=== PATIENT | female | born 1950 | race Caucasian/White ===

== ENCOUNTER 2018-11-22 07:17 | Inpatient (IN) ==
[2018-11-22 07:45] LABS: Basophils # 0.1 10*3/uL (0.0-0.2); Basophils % 0.8 % (0.0-0.8); Eosinophils # 0.2 10*3/uL (0.0-0.87); Eosinophils % 2.2 % (0.00-10.9); Hematocrit 43.8 VOL% (35.7-47.0); Hemoglobin 14.3 GM/DL (12.0-16.0); Immature Granulocytes % 0.2 %; Immature Granulocytes Absolute 0.02 #; Lymphocytes # 1.1 10*3/uL (1.4-4.0); Lymphocytes % 13.8 % (21.3-54.2); Mean Corpuscular HGB Conc 32.6 GM/DL (32-36); Mean Corpuscular Volume 88.8 FL (87-102); Mean Platelet Volume 9.3 FL (9.6-12.0); Monocytes % 5.4 % (1.7-12.7); Neutrophils % 77.6 % (38.7-73.9); Platelet Count 223 T/CUMM (130-400); Red Blood Count 4.93 MC/CUMM (3.8-5.5); Red Cell Distribution Width 13.3 % (9.3-17.3); White Blood Count 8.3 T/CUMM (4-12)
[2018-11-22 07:55] LABS: INR 0.9; PT Patient Result 9.5 SECS; Partial Thromboplastin Time 25.1 SECS (0-40)
[2018-11-22 08:01] LABS: Alanine Aminotransferase 21 U/L (13-56); Albumin 4.2 G/DL (3.4-5.0); Alkaline Phosphatase 72 U/L (45-117); Aspartate Amino Transferase 16 U/L (0-37); Bilirubin,Total < 0.39 MG/DL (0.2-1.0); Blood Urea Nitrogen 18 MG/DL (7-18); Calcium 9.2 MG/DL (8.5-10.1); Glucose 139 MG/DL (74-106); Osmolality,Calculated 284.3 MOS/KG (273-304); Total Protein 7.3 G/DL (6.4-8.3)
[2018-11-22 08:21] LABS: Apearance,Urine CLEAR (Clear); Bilirubin,Urine Negative (Negative); Blood, Urine Small mg/dL (Negative); Glucose,Urine (UA) Negative (Negative); Ketones,Urine Negative (Negative); Mucus,Urine Occasional /LPF (Occasional); Nitrite,Urine Negative (Negative); Protein,Urine Negative; RBC,Urine 4 /HPF (0-4); Squamous Epithelial Cell,Urine Occasional /HPF (0-10); Urine Color Straw (Yellow); Urine Specific Gravity 1.012 (1.001-1.035); Urine Urobilinogen < 2.0 EU/DL (0.2-1.0); WBC,Urine 1 /HPF (0-6)
[2018-11-22 08:27] LABS: Barbiturates Screen,Urine Negative (Negative); Benzodiazepines Screen,Urine Negative (Negative); Cannabinoid Screen,Urine Negative (Negative); Opiate Screen,Urine Negative (Negative); Phencyclidine Screen,Urine Negative (Negative)
[2018-11-22] MEDS ORDERED: CLOPIDOGREL 75 MG TABLET PO STA (09:45)
[2018-11-22 10:11] LABS: Risk Ratio 2.89; VLDL CHOLESTEROL 10.4 MG/DL
[2018-11-22] MEDS ORDERED: ASPIRIN 325 MG TABLET ONE (10:45)
[2018-11-22] MEDS: ASPIRIN EC 81 MG TABLET PO SCH (10:45)
[2018-11-22] MEDS ORDERED: ASPIRIN CHEW 81 MG TABLET PO ONE (10:46)
[2018-11-22] MEDS ORDERED: hydrALAZINE 20 MG/1 ML VIAL IV PRN (14:36)
[2018-11-22] MEDS ORDERED: PROMETHAZINE 25 MG/1 ML VIAL IM PRN (14:36)
[2018-11-22] MEDS ORDERED: MAGNESIUM SULF RIDER 2 GM in PREMIX 1 EACH IV PRN (14:36)
[2018-11-22] MEDS ORDERED: MORPHINE 4 MG/1 ML VIAL IV PRN (14:36)
[2018-11-22] MEDS ORDERED: ONDANSETRON 4 MG/2 ML VIAL IV PRN (14:36)
[2018-11-22] MEDS ORDERED: MAGNESIUM SULF RIDER 4 GM in PREMIX 1 EACH IV PRN (14:36)
[2018-11-22] MEDS ORDERED: diphenhydrAMINE CAP 25 MG CAPSULE PO PRN (14:36)
[2018-11-22] MEDS: CARVEDILOL 6.25 MG TABLET PO SCH ×2 (14:55→21:50)
[2018-11-22] MEDS: ACETAMINOPHEN 325 MG TABLET PO PRN (16:42)
[2018-11-22] MEDS: ATORVASTATIN 40 MG TABLET PO SCH (21:49)
[2018-11-22] MEDS: DOCUSATE SODIUM 100 MG CAPSULE PO SCH (21:51)
[2018-11-23] MEDS: HEPARIN DRIP 25,000 UNITS/500 ML PREMIX IV SCH (00:02)
[2018-11-23 06:34] LABS: Basophils # 0.1 10*3/uL (0.0-0.2); Basophils % 0.7 % (0.0-0.8); Eosinophils # 0.2 10*3/uL (0.0-0.87); Eosinophils % 2.6 % (0.00-10.9); Hematocrit 43.4 VOL% (35.7-47.0); Hemoglobin 13.7 GM/DL (12.0-16.0); Immature Granulocytes % 0.5 %; Immature Granulocytes Absolute 0.04 #; Lymphocytes # 1.7 10*3/uL (1.4-4.0); Lymphocytes % 19.7 % (21.3-54.2); Mean Corpuscular HGB Conc 31.6 GM/DL (32-36); Mean Corpuscular Volume 90.6 FL (87-102); Mean Platelet Volume 8.7 FL (9.6-12.0); Monocytes % 6.5 % (1.7-12.7); Platelet Count 210 T/CUMM (130-400); Red Blood Count 4.79 MC/CUMM (3.8-5.5); Red Cell Distribution Width 13.2 % (9.3-17.3); White Blood Count 8.4 T/CUMM (4-12)
[2018-11-23 07:20] LABS: Bilirubin,Total 0.8 MG/DL (0.2-1.0); Calcium 9.4 MG/DL (8.5-10.1); Osmolality,Calculated 281.4 MOS/KG (273-304); Total Protein 7.2 G/DL (6.4-8.3)
[2018-11-23] MEDS ORDERED: SODIUM CHLORIDE 0.9% 1,000 ML IV SCH (08:00)
[2018-11-23] MEDS ORDERED: CLOPIDOGREL 75 MG TABLET PO SCH (09:00)
[2018-11-23] MEDS: CARVEDILOL 6.25 MG TABLET PO SCH ×4 (10:55→21:00)
[2018-11-23] MEDS: DOCUSATE SODIUM 100 MG CAPSULE PO SCH ×2 (10:55→21:00)
[2018-11-23] MEDS: PANTOPRAZOLE 40 MG TABLET PO SCH (10:55)
[2018-11-23] MEDS: ASPIRIN EC 81 MG TABLET PO SCH (10:55)
[2018-11-23] MEDS ORDERED: DEXAMETHASONE 4 MG/1 ML VIAL ONE (10:59)
[2018-11-23] MEDS ORDERED: PROPOFOL 200 MG/20 ML VIAL IV ONE (10:59)
[2018-11-23] MEDS ORDERED: ONDANSETRON 4 MG/2 ML VIAL ONE (11:00)
[2018-11-23] MEDS ORDERED: ETOMIDATE 40 MG/20 ML VIAL IV ONE (11:00)
[2018-11-23] MEDS: ATORVASTATIN 40 MG TABLET PO SCH (21:00)
[2018-11-24] MEDS: HEPARIN DRIP 25,000 UNITS/500 ML PREMIX IV SCH (01:40)
[2018-11-24 04:49] LABS: Basophils % 0.4 % (0.0-0.8); Eosinophils # 0.1 10*3/uL (0.0-0.87); Eosinophils % 0.6 % (0.00-10.9); Hematocrit 42.4 VOL% (35.7-47.0); Hemoglobin 13.2 GM/DL (12.0-16.0); Immature Granulocytes % 0.6 %; Immature Granulocytes Absolute 0.07 #; Lymphocytes # 1.6 10*3/uL (1.4-4.0); Lymphocytes % 14.7 % (21.3-54.2); Mean Corpuscular HGB Conc 31.1 GM/DL (32-36); Mean Platelet Volume 9.2 FL (9.6-12.0); Monocytes % 7.8 % (1.7-12.7); Neutrophils % 75.9 % (38.7-73.9); Platelet Count 226 T/CUMM (130-400); Red Blood Count 4.66 MC/CUMM (3.8-5.5); Red Cell Distribution Width 13.2 % (9.3-17.3)
[2018-11-24 05:21] LABS: Albumin 3.6 G/DL (3.4-5.0); Bilirubin,Total 0.8 MG/DL (0.2-1.0); Calcium 9.3 MG/DL (8.5-10.1); Osmolality,Calculated 287.1 MOS/KG (273-304); Total Protein 6.8 G/DL (6.4-8.3)
[2018-11-24] MEDS: CARVEDILOL 6.25 MG TABLET PO SCH ×2 (08:36→20:54)
[2018-11-24] MEDS: DOCUSATE SODIUM 100 MG CAPSULE PO SCH ×2 (08:36→20:54)
[2018-11-24] MEDS: ASPIRIN EC 81 MG TABLET PO SCH (08:37)
[2018-11-24] MEDS: PANTOPRAZOLE 40 MG TABLET PO SCH (08:37)
[2018-11-24] MEDS: ESCITALOPRAM 10 MG TABLET PO SCH (08:39)
[2018-11-24] MEDS: ATORVASTATIN 40 MG TABLET PO SCH (20:54)
[2018-11-24] MEDS: ACETAMINOPHEN 325 MG TABLET PO PRN (22:28)
[2018-11-25] MEDS: HEPARIN DRIP 25,000 UNITS/500 ML PREMIX IV SCH (04:17)
[2018-11-25 04:44] LABS: Basophils # 0.1 10*3/uL (0.0-0.2); Eosinophils # 0.3 10*3/uL (0.0-0.87); Eosinophils % 3.2 % (0.00-10.9); Hematocrit 41.7 VOL% (35.7-47.0); Immature Granulocytes % 0.4 %; Immature Granulocytes Absolute 0.03 #; Lymphocytes # 2.2 10*3/uL (1.4-4.0); Lymphocytes % 26.8 % (21.3-54.2); Mean Corpuscular HGB Conc 31.2 GM/DL (32-36); Mean Corpuscular Volume 91.6 FL (87-102); Mean Platelet Volume 9.3 FL (9.6-12.0); Monocytes % 8.8 % (1.7-12.7); Neutrophils % 59.8 % (38.7-73.9); Platelet Count 206 T/CUMM (130-400); Red Blood Count 4.55 MC/CUMM (3.8-5.5); Red Cell Distribution Width 13.4 % (9.3-17.3); White Blood Count 8.2 T/CUMM (4-12)
[2018-11-25 05:20] LABS: Alanine Aminotransferase 20 U/L (13-56); Albumin 3.4 G/DL (3.4-5.0); Alkaline Phosphatase 74 U/L (45-117); Aspartate Amino Transferase 16 U/L (0-37); Bilirubin,Total < 0.39 MG/DL (0.2-1.0); Blood Urea Nitrogen 33 MG/DL (7-18); Calcium 8.9 MG/DL (8.5-10.1); Glucose 119 MG/DL (74-106); Total Protein 6.4 G/DL (6.4-8.3)
[2018-11-25] MEDS: DOCUSATE SODIUM 100 MG CAPSULE PO SCH ×2 (12:17→20:58)
[2018-11-25] MEDS: CARVEDILOL 6.25 MG TABLET PO SCH ×2 (12:18→20:58)
[2018-11-25] MEDS ORDERED: LIDOCAINE 1%/EPI INJ 20 ML VIAL ONE (12:33)
[2018-11-25] MEDS ORDERED: TISSUE ADHESIVE 1 EACH APPLICATOR TOP ONE (12:34)
[2018-11-25] MEDS ORDERED: SODIUM CHLORIDE 0.9% 1,000 ML IV SCH (13:00)
[2018-11-25] MEDS: APIXABAN 5 MG TABLET PO SCH ×2 (15:26→20:58)
[2018-11-25] MEDS: ESCITALOPRAM 10 MG TABLET PO SCH (16:41)
[2018-11-25] MEDS: ASPIRIN EC 81 MG TABLET PO SCH (16:42)
[2018-11-25] MEDS: PANTOPRAZOLE 40 MG TABLET PO SCH (16:42)
[2018-11-25] MEDS: ATORVASTATIN 40 MG TABLET PO SCH (20:59)
[2018-11-25] MEDS ORDERED: DOXAZOSIN 1 MG TABLET PO SCH (21:00)
[2018-11-26 05:00] LABS: Basophils # 0.1 10*3/uL (0.0-0.2); Basophils % 0.8 % (0.0-0.8); Eosinophils # 0.3 10*3/uL (0.0-0.87); Eosinophils % 3.1 % (0.00-10.9); Hematocrit 44.4 VOL% (35.7-47.0); Hemoglobin 13.8 GM/DL (12.0-16.0); Immature Granulocytes % 0.3 %; Immature Granulocytes Absolute 0.03 #; Lymphocytes # 1.7 10*3/uL (1.4-4.0); Lymphocytes % 19.5 % (21.3-54.2); Mean Corpuscular HGB Conc 31.1 GM/DL (32-36); Mean Corpuscular Volume 91.4 FL (87-102); Monocytes % 8.1 % (1.7-12.7); Neutrophils % 68.2 % (38.7-73.9); Platelet Count 198 T/CUMM (130-400); Red Blood Count 4.86 MC/CUMM (3.8-5.5); Red Cell Distribution Width 13.2 % (9.3-17.3); White Blood Count 8.8 T/CUMM (4-12)
[2018-11-26 05:37] LABS: Albumin 3.6 G/DL (3.4-5.0); Bilirubin,Total 0.8 MG/DL (0.2-1.0); Calcium 9.3 MG/DL (8.5-10.1); Total Protein 6.9 G/DL (6.4-8.3)
[2018-11-26] MEDS: ESCITALOPRAM 10 MG TABLET PO SCH (08:40)
[2018-11-26] MEDS: APIXABAN 5 MG TABLET PO SCH ×2 (08:42→20:18)
[2018-11-26] MEDS: DOCUSATE SODIUM 100 MG CAPSULE PO SCH ×2 (08:42→20:18)
[2018-11-26] MEDS: PANTOPRAZOLE 40 MG TABLET PO SCH (08:42)
[2018-11-26] MEDS: ASPIRIN EC 81 MG TABLET PO SCH (08:42)
[2018-11-26] MEDS: CARVEDILOL 6.25 MG TABLET PO SCH ×2 (08:42→20:18)
[2018-11-26] MEDS: ATORVASTATIN 40 MG TABLET PO SCH (20:18)
[2018-11-27] MEDS: ESCITALOPRAM 10 MG TABLET PO SCH (09:08)
[2018-11-27] MEDS: CARVEDILOL 6.25 MG TABLET PO SCH ×2 (09:09→20:43)
[2018-11-27] MEDS: DOCUSATE SODIUM 100 MG CAPSULE PO SCH ×2 (09:09→20:43)
[2018-11-27] MEDS: APIXABAN 5 MG TABLET PO SCH ×2 (09:09→20:43)
[2018-11-27] MEDS: PANTOPRAZOLE 40 MG TABLET PO SCH (09:09)
[2018-11-27] MEDS: ASPIRIN EC 81 MG TABLET PO SCH (09:09)
[2018-11-27] MEDS: ATORVASTATIN 40 MG TABLET PO SCH (20:43)
[2018-11-28 08:24] VITALS: BP 138/74
[2018-11-28] MEDS: CARVEDILOL 6.25 MG TABLET PO SCH (08:41)
[2018-11-28] MEDS: APIXABAN 5 MG TABLET PO SCH (08:41)
[2018-11-28] MEDS: ESCITALOPRAM 10 MG TABLET PO SCH (08:41)
[2018-11-28] MEDS: PANTOPRAZOLE 40 MG TABLET PO SCH (08:42)
[2018-11-28] MEDS: ASPIRIN EC 81 MG TABLET PO SCH (08:42)
[2018-11-28] MEDS: DOCUSATE SODIUM 100 MG CAPSULE PO SCH (08:42)
== END 2018-11-28 14:25 | disposition swing bed (61) | DRG 41 ==
LOC: EDUNIT# → EDBD → N.ED 07:17 → N.EDINP 07:17 → N.4E 10:54 → N.3E 11-26 14:02
PROVIDERS: ADMIT Hospitalist; ATTEND Hospitalist

== ENCOUNTER 2020-05-04 05:29 | Inpatient (IN) ==
[2020-05-04] MEDS ORDERED: SODIUM CHLORIDE 0.9% 1,000 ML IV STA ×2 (06:05→06:26)
[2020-05-04] MEDS ORDERED: HYDROmorphone 2 MG/1 ML VIAL IV STA (06:17)
[2020-05-04] MEDS ORDERED: ONDANSETRON 4 MG/2 ML VIAL IV STA ×3 (06:17→10:13)
[2020-05-04 06:23] LABS: Alanine Aminotransferase 208 U/L (13-56); Albumin 3.8 G/DL (3.4-5.0); Alkaline Phosphatase 159 U/L (45-117); Aspartate Amino Transferase 150 U/L (0-37); Blood Urea Nitrogen 29 MG/DL (7-18); Calcium 9.2 MG/DL (8.5-10.1); Carbon Dioxide 13 MMOL/L (21-32); Estimated Glom Filtration Rate 21 ML/MIN; Glucose 297 MG/DL (74-106); Osmolality,Calculated 291.7 MOS/KG (273-304); Sodium 138 MMOL/L (136-145); Total Protein 8.4 G/DL (6.4-8.3)
[2020-05-04] MEDS ORDERED: cefTRIAXone 1,000 MG in SODIUM CHLORIDE 0.9% 100 ML IV STA (06:24)
[2020-05-04] MEDS ORDERED: PIPERACILLIN/TAZOBACTAM 3,375 MG in SODIUM CHLORIDE 0.9% 100 ML IV STA (06:26)
[2020-05-04 06:35] LABS: Bacteria,Urine Occasional /HPF (Few); Bilirubin,Urine Negative (Negative); Blood, Urine Moderate mg/dL (Negative); Glucose,Urine (UA) Negative (Negative); Ketones,Urine Negative (Negative); Nitrite,Urine Negative (Negative); Protein,Urine 30 MG/DL; RBC,Urine 5 /HPF (0-4); Squamous Epithelial Cell,Urine Occasional /HPF (0-10); Urine Appearance Slightly Hazy (Clear); Urine Color Amber (Yellow); Urine Specific Gravity 1.013 (1.001-1.035); Urine Urobilinogen < 2.0 EU/DL (0.2-1.0); WBC,Urine 32 /HPF (0-6)
[2020-05-04 06:41] LABS: Basophils # 0.1 10*3/uL (0.0-0.2); Basophils % 0.3 % (0.0-0.8); Eosinophils % 0.1 % (0.00-10.9); Hematocrit 56.9 VOL% (35.7-47.0); Hemoglobin 17.9 GM/DL (12.0-16.0); Immature Granulocytes % 0.6 %; Immature Granulocytes Absolute 0.16 #; Lymphocytes # 3.2 10*3/uL (1.4-4.0); Lymphocytes % 11.3 % (21.3-54.2); Mean Corpuscular HGB Conc 31.5 GM/DL (32-36); Mean Corpuscular Volume 93.1 FL (87-102); Mean Platelet Volume 9.4 FL (9.6-12.0); Neutrophils % 83.7 % (38.7-73.9); Platelet Count 271 T/CUMM (130-400); Red Blood Count 6.11 MC/CUMM (3.8-5.5); Red Cell Distribution Width 13.9 % (9.3-17.3); White Blood Count 27.8 T/CUMM (4-12)
[2020-05-04 06:49] LABS: Band Neutrophils 6 % (0-10); Lymphocytes 10 % (20-55); Platelet Estimate Adequate; Segmented Neutrophils 81 % (50-85); Total Cells Counted 100
[2020-05-04 06:52] LABS: Troponin I 0.089 NG/ML (0.00-0.045)
[2020-05-04] MEDS ORDERED: ALBUTEROL 2.5 MG/3 ML NEB RESP TX PRN (08:11)
[2020-05-04] MEDS ORDERED: HYDROmorphone 2 MG/1 ML VIAL IV PRN ×2 (08:19→09:22)
[2020-05-04 08:29] LABS: INR 1.1; PT Patient Result 12.2 SECS (9.8-11.9)
[2020-05-04] MEDS ORDERED: LACTATED RINGERS 1,000 ML IV ONE ×3 (08:29→16:11)
[2020-05-04] MEDS ORDERED: ENOXAPARIN 30 MG/0.3 ML SYRINGE SUBCUT SCH (08:30)
[2020-05-04] MEDS ORDERED: LACTATED RINGERS 1,000 ML IV SCH ×2 (08:30→09:30)
[2020-05-04] MEDS ORDERED: GLUCAGON 1 MG VIAL IM PRN (08:36)
[2020-05-04 09:05] LABS: Risk Ratio 2.4; VLDL CHOLESTEROL 23.8 MG/DL
[2020-05-04] MEDS: ONDANSETRON 4 MG/2 ML VIAL IV PRN (09:37)
[2020-05-04] MEDS: HYDROmorphone 2 MG/1 ML VIAL IV PRN ×4 (09:37→18:39)
[2020-05-04] MEDS ORDERED: PROMETHAZINE 25 MG/1 ML VIAL IM PRN (10:43)
[2020-05-04] MEDS ORDERED: VANCOMYCIN INJ 1,500 MG in SODIUM CHLORIDE 0.9% 500 ML IV PRN (11:28)
[2020-05-04] MEDS: LACTATED RINGERS 1,000 ML IV SCH ×2 (12:21→18:11)
[2020-05-04] MEDS ORDERED: VANCOMYCIN INJ 1,500 MG in SODIUM CHLORIDE 0.9% 500 ML IV ONE (12:30)
[2020-05-04] MEDS: PIPERACILLIN/TAZOBACTAM 3,375 MG in SODIUM CHLORIDE 0.9% 100 ML IV SCH (15:00)
[2020-05-04] MEDS ORDERED: HEPARIN DRIP 25,000 UNITS/500 ML PREMIX IV ONE (16:23)
[2020-05-04 17:07] LABS: ABG Base Excess -11.3 MMOL/L (-2.5-2.5); ABG HCO3 15.7 MMOL/L (20-26); ABG Oxygen Saturation 94.5 % (95-100); ABG PH 7.264 (7.35-7.45); ABG PO2 86.7 MM HG (80-95); ABG TCO2 13.1 MMOL/L (23-27)
[2020-05-04] MEDS ORDERED: LACTATED RINGERS 500 ML IV ONE (18:00)
[2020-05-04 18:15] LABS: Calcium 6.3 MG/DL (8.5-10.1); Osmolality,Calculated 294.1 MOS/KG (273-304); Potassium 4.4 MMOL/L (3.5-5.1)
[2020-05-04] MEDS ORDERED: SODIUM BICARBONATE 50 MEQ/50 ML VIAL IV ONE ×2 (18:23→18:24)
[2020-05-04] MEDS: SODIUM BICARB INJ 100 MEQ in DEXTROSE 5% 1,000 ML IV SCH (20:00)
[2020-05-04] MEDS: NOREPINEPHRINE 8 MG in SODIUM CHLORIDE 0.9% 242 ML IV PRN (20:01)
[2020-05-04] MEDS: HYDROCORTISONE 100 MG VIAL IV SCH (20:22)
[2020-05-04 20:45] LABS: Hematocrit 48.4 VOL% (35.7-47.0); Hemoglobin 14.9 GM/DL (12.0-16.0)
[2020-05-04] MEDS ORDERED: ALBUMIN 5% 12.5 GM in PREMIX 1 EACH IV ONE (21:16)
[2020-05-04] MEDS ORDERED: ROCURONIUM 50 MG/5 ML VIAL IV ONE (21:25)
[2020-05-04] MEDS ORDERED: fentaNYL 100 MCG/2 ML VIAL ONE (21:25)
[2020-05-04] MEDS ORDERED: ETOMIDATE 40 MG/20 ML VIAL IV ONE (21:25)
[2020-05-04] MEDS ORDERED: LIDOCAINE 2% 5 ML VIAL ONE (21:25)
[2020-05-04] MEDS ORDERED: MIDAZOLAM 2 MG/2 ML VIAL ONE (21:26)
[2020-05-04] MEDS ORDERED: ALBUMIN 5% 12.5 GM/250 ML VIAL IV ONE (22:34)
[2020-05-04] MEDS ORDERED: PHENYLEPHRINE 1 MG/10 ML SYRINGE IV ONE (22:40)
[2020-05-04] MEDS ORDERED: SUCCINYLCHOLINE 200 MG/10 ML VIAL ONE (22:40)
[2020-05-04] MEDS ORDERED: SEVOFLURANE 1 UNIT/15 MINUTE INH ONE (22:40)
[2020-05-05] MEDS: PIPERACILLIN/TAZOBACTAM 3,375 MG in SODIUM CHLORIDE 0.9% 100 ML IV SCH ×3 (00:07→18:02)
[2020-05-05] MEDS: HYDROCORTISONE 100 MG VIAL IV SCH ×4 (01:19→18:02)
[2020-05-05 02:54] LABS: ABG Base Excess -8.2 MMOL/L (-2.5-2.5); ABG HCO3 17.9 MMOL/L (20-26); ABG Oxygen Saturation 99.2 % (95-100); ABG PCO2 39.2 MM HG (35-48); ABG PH 7.275 (7.35-7.45); ABG TCO2 16.4 MMOL/L (23-27)
[2020-05-05] MEDS ORDERED: SODIUM CHLORIDE 0.9% 500 ML IV ONE (04:20)
[2020-05-05 06:13] LABS: Albumin 2.1 G/DL (3.4-5.0); Bilirubin,Total 0.9 MG/DL (0.2-1.0); Osmolality,Calculated 295.3 MOS/KG (273-304); Total Protein 4.4 G/DL (6.4-8.3)
[2020-05-05 06:15] LABS: Calcium 5.3 MG/DL (8.5-10.1)
[2020-05-05] MEDS ORDERED: CALCIUM GLUCONATE 1,000 MG in SODIUM CHLORIDE 0.9% 100 ML IV ONE ×3 (06:30→17:46)
[2020-05-05] MEDS ORDERED: MAGNESIUM SULF RIDER 4 GM in PREMIX 1 EACH IV PRN (06:31)
[2020-05-05] MEDS ORDERED: POTASSIUM CHLORIDE RIDER 10 MEQ in PREMIX 1 EACH IV PRN (06:33)
[2020-05-05] MEDS ORDERED: LACTATED RINGERS 1,000 ML IV ONE (07:12)
[2020-05-05 08:39] LABS: Basophils % 0.3 % (0.0-0.8); Hematocrit 35.4 VOL% (35.7-47.0); Immature Granulocytes Absolute 0.12 #; Lymphocytes # 0.5 10*3/uL (1.4-4.0); Lymphocytes % 7.5 % (21.3-54.2); Mean Corpuscular HGB Conc 31.9 GM/DL (32-36); Mean Corpuscular Volume 92.7 FL (87-102); Mean Platelet Volume 10.1 FL (9.6-12.0); Monocytes % 11.3 % (1.7-12.7); Neutrophils % 78.9 % (38.7-73.9); Red Blood Count 3.82 MC/CUMM (3.8-5.5); Red Cell Distribution Width 14.3 % (9.3-17.3)
[2020-05-05 08:43] LABS: Hemoglobin 11.3 GM/DL (12.0-16.0); Platelet Count 94 T/CUMM (130-400)
[2020-05-05 09:10] LABS: Anisocytosis 1+; Band Neutrophils 50 % (0-10); Burr Cells Few; Lymphocytes 12 % (20-55); Macrocytosis 1+; Metamyelocytes 14 %; Myelocytes 2 %; Platelet Estimate Decreased; Segmented Neutrophils 9 % (50-85); Spherocytes Few; Total Cells Counted 100
[2020-05-05] MEDS: SODIUM BICARB INJ 100 MEQ in DEXTROSE 5% 1,000 ML IV SCH ×2 (09:49→17:53)
[2020-05-05] MEDS: MAGNESIUM SULF RIDER 2 GM in PREMIX 1 EACH IV PRN (09:49)
[2020-05-05 10:12] LABS: INR 1.5; PT Patient Result 16.1 SECS (9.8-11.9)
[2020-05-05 10:12] LABS: ABG HCO3 19.5 MMOL/L (20-26); ABG Oxygen Saturation 98.6 % (95-100); ABG PCO2 26.3 MM HG (35-48); ABG PH 7.421 (7.35-7.45); ABG TCO2 15.1 MMOL/L (23-27)
[2020-05-05] MEDS: fentaNYL INJ 1,250 MCG in SODIUM CHLORIDE 0.9% 225 ML IV PRN ×2 (12:04→21:08)
[2020-05-05] MEDS ORDERED: SODIUM CHLORIDE 0.9% 1,000 ML IV PRN (12:19)
[2020-05-05 17:15] LABS: Basophils % 0.5 % (0.0-0.8); Hematocrit 31.5 VOL% (35.7-47.0); Hemoglobin 10.1 GM/DL (12.0-16.0); Immature Granulocytes % 1.2 %; Immature Granulocytes Absolute 0.07 #; Lymphocytes # 0.3 10*3/uL (1.4-4.0); Lymphocytes % 5.5 % (21.3-54.2); Mean Corpuscular HGB Conc 32.1 GM/DL (32-36); Mean Corpuscular Volume 91.3 FL (87-102); Mean Platelet Volume 9.8 FL (9.6-12.0); Monocytes % 8.1 % (1.7-12.7); Neutrophils % 84.7 % (38.7-73.9); Platelet Count 73 T/CUMM (130-400); Red Blood Count 3.45 MC/CUMM (3.8-5.5); Red Cell Distribution Width 14.3 % (9.3-17.3)
[2020-05-05 17:41] LABS: Blood Urea Nitrogen 48 MG/DL (7-18); Carbon Dioxide 24 MMOL/L (21-32); Estimated Glom Filtration Rate 18 ML/MIN; Glucose 214 MG/DL (74-106); Osmolality,Calculated 299.3 MOS/KG (273-304); Potassium 3.5 MMOL/L (3.5-5.1); Sodium 141 MMOL/L (136-145)
[2020-05-05 17:44] LABS: Calcium 5.6 MG/DL (8.5-10.1)
[2020-05-05 17:54] LABS: Band Neutrophils 41 % (0-10); Lymphocytes 13 % (20-55); Metamyelocytes 10 %; Myelocytes 2 %; Segmented Neutrophils 28 % (50-85); Total Cells Counted 100
[2020-05-05 17:55] LABS: Platelet Estimate Decreased
[2020-05-05 17:57] LABS: Burr Cells Few; Polychromasia Slight; Spherocytes Few
[2020-05-05 21:55] LABS: Basophils % 0.6 % (0.0-0.8); Eosinophils % 0.2 % (0.00-10.9); Hematocrit 26.2 VOL% (35.7-47.0); Hemoglobin 8.6 GM/DL (12.0-16.0); Immature Granulocytes Absolute 0.05 #; Lymphocytes # 0.2 10*3/uL (1.4-4.0); Lymphocytes % 4.3 % (21.3-54.2); Mean Corpuscular HGB Conc 32.8 GM/DL (32-36); Mean Corpuscular Volume 90.3 FL (87-102); Mean Platelet Volume 10.1 FL (9.6-12.0); Monocytes % 8.1 % (1.7-12.7); Neutrophils % 85.8 % (38.7-73.9); Platelet Count 58 T/CUMM (130-400); Red Cell Distribution Width 14.2 % (9.3-17.3); White Blood Count 5.1 T/CUMM (4-12)
[2020-05-05 22:32] LABS: Band Neutrophils 32 % (0-10); Lymphocytes 8 % (20-55); Metamyelocytes 6 %; Myelocytes 2 %; Segmented Neutrophils 45 % (50-85); Total Cells Counted 100
[2020-05-05 22:33] LABS: Platelet Estimate Decreased
[2020-05-06] MEDS: HYDROCORTISONE 100 MG VIAL IV SCH ×4 (01:31→18:31)
[2020-05-06] MEDS: SODIUM BICARB INJ 100 MEQ in DEXTROSE 5% 1,000 ML IV SCH ×4 (02:13→14:59)
[2020-05-06 04:35] LABS: Basophils % 0.6 % (0.0-0.8); Eosinophils % 0.1 % (0.00-10.9); Hematocrit 27.3 VOL% (35.7-47.0); Hemoglobin 9.1 GM/DL (12.0-16.0); Immature Granulocytes % 0.9 %; Immature Granulocytes Absolute 0.06 #; Lymphocytes # 0.3 10*3/uL (1.4-4.0); Mean Corpuscular HGB Conc 33.3 GM/DL (32-36); Mean Corpuscular Volume 89.5 FL (87-102); Mean Platelet Volume 10.2 FL (9.6-12.0); Monocytes % 6.8 % (1.7-12.7); Neutrophils % 87.6 % (38.7-73.9); Platelet Count 57 T/CUMM (130-400); Red Blood Count 3.05 MC/CUMM (3.8-5.5); Red Cell Distribution Width 14.3 % (9.3-17.3)
[2020-05-06 04:36] LABS: ABG HCO3 27.2 MMOL/L (20-26); ABG Oxygen Saturation 97.8 % (95-100); ABG PCO2 45.4 MM HG (35-48); ABG PH 7.395 (7.35-7.45); ABG PO2 117.8 MM HG (80-95); ABG TCO2 28.6 MMOL/L (23-27)
[2020-05-06] MEDS: fentaNYL INJ 1,250 MCG in SODIUM CHLORIDE 0.9% 225 ML IV PRN ×3 (05:06→20:21)
[2020-05-06 05:07] LABS: Band Neutrophils 4 % (0-10); Lymphocytes 6 % (20-55); Microcytosis Slight; Platelet Estimate Decreased; Segmented Neutrophils 87 % (50-85); Total Cells Counted 100
[2020-05-06 05:17] LABS: Bilirubin,Total 0.7 MG/DL (0.2-1.0); Osmolality,Calculated 289.8 MOS/KG (273-304); Potassium 3.4 MMOL/L (3.5-5.1); Uric Acid 6.4 MG/DL (2.6-6.0)
[2020-05-06 05:24] LABS: Calcium 5.2 MG/DL (8.5-10.1)
[2020-05-06] MEDS ORDERED: VANCOMYCIN INJ 1,500 MG in SODIUM CHLORIDE 0.9% 500 ML IV ONE ×2 (06:30→10:00)
[2020-05-06] MEDS ORDERED: CALCIUM GLUCONATE 2,000 MG in SODIUM CHLORIDE 0.9% 100 ML IV ONE (07:00)
[2020-05-06] MEDS: PIPERACILLIN/TAZOBACTAM 3,375 MG in SODIUM CHLORIDE 0.9% 100 ML IV SCH ×2 (07:08→18:30)
[2020-05-06 07:14] LABS: Albumin 1.9 G/DL (3.4-5.0); Bilirubin,Direct 0.35 MG/DL (0.0-0.20); Bilirubin,Indirect 0.6 MG/DL (0.0-1.0); Bilirubin,Total 0.9 MG/DL (0.2-1.0); Osmolality,Calculated 294.5 MOS/KG (273-304); Potassium 3.4 MMOL/L (3.5-5.1)
[2020-05-06 07:15] LABS: Calcium 5.3 MG/DL (8.5-10.1)
[2020-05-06] MEDS ORDERED: ROCURONIUM 50 MG/5 ML VIAL IV ONE (08:03)
[2020-05-06] MEDS ORDERED: fentaNYL 100 MCG/2 ML VIAL ONE (08:03)
[2020-05-06] MEDS ORDERED: MIDAZOLAM 2 MG/2 ML VIAL ONE (08:03)
[2020-05-06] MEDS: POTASSIUM CHLORIDE RIDER 20 MEQ in PREMIX 1 EACH IV PRN (09:41)
[2020-05-06] MEDS: MAGNESIUM SULF RIDER 2 GM in PREMIX 1 EACH IV PRN (09:41)
[2020-05-06] MEDS ORDERED: SODIUM CHLORIDE 0.9% 1,000 ML IV PRN (10:22)
[2020-05-06] MEDS ORDERED: PHENYLEPHRINE 1 MG/10 ML SYRINGE IV ONE ×2 (10:53)
[2020-05-06] MEDS ORDERED: SEVOFLURANE 1 UNIT/15 MINUTE INH ONE (11:35)
[2020-05-06 11:38] LABS: Amorphous Crystals,Urine Occasional /HPF (Few); Bilirubin,Urine Negative (Negative); Blood, Urine Moderate mg/dL (Negative); Glucose,Urine (UA) Negative (Negative); Ketones,Urine Negative (Negative); Nitrite,Urine Negative (Negative); Protein,Urine 30 MG/DL; RBC,Urine 1 /HPF (0-4); Urine Appearance CLOUDY (Clear); Urine Color Yellow (Yellow); Urine Specific Gravity 1.013 (1.001-1.035); Urine Urobilinogen < 2.0 EU/DL (0.2-1.0); WBC,Urine 2 /HPF (0-6)
[2020-05-06] MEDS: ALBUMIN 25% 12.5 GM in PREMIX 1 EACH IV SCH (13:08)
[2020-05-06] MEDS: CALCIUM GLUCONATE 2,000 MG in SODIUM CHLORIDE 0.9% 100 ML IV SCH (14:40)
[2020-05-07] MEDS: CALCIUM GLUCONATE 2,000 MG in SODIUM CHLORIDE 0.9% 100 ML IV SCH ×2 (01:19→12:01)
[2020-05-07] MEDS: HYDROCORTISONE 100 MG VIAL IV SCH ×4 (01:23→17:32)
[2020-05-07] MEDS: ALBUMIN 25% 12.5 GM in PREMIX 1 EACH IV SCH ×2 (01:28→12:00)
[2020-05-07] MEDS: SODIUM BICARB INJ 100 MEQ in DEXTROSE 5% 1,000 ML IV SCH ×4 (01:32→14:19)
[2020-05-07] MEDS: fentaNYL INJ 1,250 MCG in SODIUM CHLORIDE 0.9% 225 ML IV PRN ×4 (02:05→20:31)
[2020-05-07] MEDS: POTASSIUM CHLORIDE RIDER 20 MEQ in PREMIX 1 EACH IV PRN ×3 (02:07→17:32)
[2020-05-07 05:45] LABS: Basophils # 0.1 10*3/uL (0.0-0.2); Basophils % 0.8 % (0.0-0.8); Eosinophils % 0.2 % (0.00-10.9); Hematocrit 22.4 VOL% (35.7-47.0); Immature Granulocytes Absolute 0.13 #; Lymphocytes # 0.4 10*3/uL (1.4-4.0); Lymphocytes % 5.5 % (21.3-54.2); Mean Corpuscular Volume 88.9 FL (87-102); Mean Platelet Volume 9.7 FL (9.6-12.0); Monocytes % 7.5 % (1.7-12.7); Red Blood Count 2.52 MC/CUMM (3.8-5.5); White Blood Count 6.6 T/CUMM (4-12)
[2020-05-07 05:46] LABS: Hemoglobin 7.4 GM/DL (12.0-16.0); Platelet Count 45 T/CUMM (130-400)
[2020-05-07] MEDS: PIPERACILLIN/TAZOBACTAM 3,375 MG in SODIUM CHLORIDE 0.9% 100 ML IV SCH (05:58)
[2020-05-07 05:59] LABS: INR 1.1; PT Patient Result 11.4 SECS (9.8-11.9); Partial Thromboplastin Time 31.9 SECS (23.9-33.8)
[2020-05-07 06:08] LABS: Albumin 2.2 G/DL (3.4-5.0); Bilirubin,Direct 0.29 MG/DL (0.0-0.20); Bilirubin,Indirect 0.3 MG/DL (0.0-1.0); Bilirubin,Total 0.6 MG/DL (0.2-1.0); Calcium 5.9 MG/DL (8.5-10.1); Osmolality,Calculated 291.7 MOS/KG (273-304); Potassium 3.2 MMOL/L (3.5-5.1); Total Protein 5.1 G/DL (6.4-8.3)
[2020-05-07 06:19] LABS: Band Neutrophils 24 % (0-10); Lymphocytes 6 % (20-55); Platelet Estimate Decreased; Segmented Neutrophils 61 % (50-85); Total Cells Counted 100
[2020-05-07 06:20] LABS: Anisocytosis 1+
[2020-05-07] MEDS ORDERED: INFLUENZA VIRUS VACCINE 0.5 ML SYRINGE IM ONE (07:00)
[2020-05-07 07:04] LABS: ABG Base Excess 7.4 MMOL/L (-2.5-2.5); ABG HCO3 31.2 MMOL/L (20-26); ABG PCO2 50.6 MM HG (35-48); ABG PH 7.421 (7.35-7.45); ABG PO2 79.2 MM HG (80-95); ABG TCO2 30.8 MMOL/L (23-27)
[2020-05-07] MEDS: LEVOFLOXACIN INJ 750 MG in PREMIX 1 EACH IV SCH (09:16)
[2020-05-07] MEDS: metroNIDAZOLE INJ 500 MG in PREMIX 1 EACH IV SCH ×3 (09:19→20:50)
[2020-05-07] MEDS: MEROPENEM 500 MG in SODIUM CHLORIDE 0.9% 100 ML IV SCH ×2 (09:39→21:48)
[2020-05-07 11:06] LABS: Osmolality,Calculated 296.4 MOS/KG (273-304); Potassium 3.1 MMOL/L (3.5-5.1)
[2020-05-07 11:09] LABS: Calcium 5.7 MG/DL (8.5-10.1)
[2020-05-07] MEDS ORDERED: TRACE ELEMENTS (5) 1 ML, MULTIVITAMIN INJ 10 ML in AMINO ACIDS/DEXT/LYTES 5-15% 1,000 ML IV SCH (17:00)
[2020-05-07] MEDS: INSULIN LISPRO 100 UNIT/ML SUBCUT SCH (20:42)
[2020-05-08] MEDS: INSULIN LISPRO 100 UNIT/ML SUBCUT SCH ×6 (00:44→22:05)
[2020-05-08] MEDS: HYDROCORTISONE 100 MG VIAL IV SCH ×4 (00:51→17:30)
[2020-05-08] MEDS: ALBUMIN 25% 12.5 GM in PREMIX 1 EACH IV SCH ×2 (00:59→12:31)
[2020-05-08 02:15] LABS: ABG Base Excess 7.8 MMOL/L (-2.5-2.5); ABG HCO3 31.6 MMOL/L (20-26); ABG Oxygen Saturation 97.7 % (95-100); ABG PCO2 52.3 MM HG (35-48); ABG PH 7.414 (7.35-7.45); ABG TCO2 31.2 MMOL/L (23-27)
[2020-05-08 02:31] LABS: Basophils % 0.4 % (0.0-0.8); Eosinophils % 0.3 % (0.00-10.9); Hematocrit 24.5 VOL% (35.7-47.0); Immature Granulocytes % 3.5 %; Immature Granulocytes Absolute 0.27 #; Lymphocytes # 0.6 10*3/uL (1.4-4.0); Lymphocytes % 8.1 % (21.3-54.2); Mean Corpuscular HGB Conc 32.7 GM/DL (32-36); Mean Corpuscular Volume 90.1 FL (87-102); Mean Platelet Volume 10.7 FL (9.6-12.0); Monocytes % 9.1 % (1.7-12.7); NRBC # 0.03 10*3/uL; Neutrophils % 78.6 % (38.7-73.9); Platelet Count 71 T/CUMM (130-400); Red Blood Count 2.72 MC/CUMM (3.8-5.5); White Blood Count 7.7 T/CUMM (4-12)
[2020-05-08] MEDS: CALCIUM GLUCONATE 2,000 MG in SODIUM CHLORIDE 0.9% 100 ML IV SCH (02:39)
[2020-05-08 02:44] LABS: Albumin 2.3 G/DL (3.4-5.0); Bilirubin,Total 0.4 MG/DL (0.2-1.0); Calcium 6.3 MG/DL (8.5-10.1); Osmolality,Calculated 302.1 MOS/KG (273-304); Potassium 3.2 MMOL/L (3.5-5.1); Total Protein 5.4 G/DL (6.4-8.3)
[2020-05-08] MEDS: metroNIDAZOLE INJ 500 MG in PREMIX 1 EACH IV SCH ×4 (03:47→22:05)
[2020-05-08 03:54] LABS: Band Neutrophils 4 % (0-10); Lymphocytes 14 % (20-55); Nucleated Red Blood Cells 2 (0-5); Segmented Neutrophils 72 % (50-85); Total Cells Counted 100
[2020-05-08 03:55] LABS: Hypochromasia 1+; Platelet Estimate Decreased
[2020-05-08 03:56] LABS: Microcytosis Slight; Polychromasia Slight
[2020-05-08] MEDS: fentaNYL INJ 1,250 MCG in SODIUM CHLORIDE 0.9% 225 ML IV PRN ×2 (05:42→18:11)
[2020-05-08] MEDS: POTASSIUM CHLORIDE RIDER 20 MEQ in PREMIX 1 EACH IV PRN ×4 (09:35→17:03)
[2020-05-08] MEDS: MEROPENEM 500 MG in SODIUM CHLORIDE 0.9% 100 ML IV SCH ×2 (10:33→23:05)
[2020-05-08] MEDS: CALCIUM GLUCONATE 1,000 MG in SODIUM CHLORIDE 0.9% 100 ML IV SCH ×3 (12:23→23:34)
[2020-05-08 16:52] LABS: Corn IgG4 <0.15 mcg/mL; Peanut IgG4 <0.15 mcg/mL; Soybean IgG4 <0.15 mcg/mL; Wheat IgG4 2.24 mcg/mL
[2020-05-08] MEDS: TRACE ELEMENTS (5) 1 ML, MULTIVITAMIN INJ 10 ML in AMINO ACIDS/DEXT/LYTES 5-15% 2,000 ML IV SCH (17:04)
[2020-05-09] MEDS: INSULIN LISPRO 100 UNIT/ML SUBCUT SCH ×7 (01:34→23:55)
[2020-05-09] MEDS: HYDROCORTISONE 100 MG VIAL IV SCH ×5 (01:35→23:56)
[2020-05-09] MEDS: ALBUMIN 25% 12.5 GM in PREMIX 1 EACH IV SCH (01:37)
[2020-05-09] MEDS: metroNIDAZOLE INJ 500 MG in PREMIX 1 EACH IV SCH ×4 (04:59→20:42)
[2020-05-09 05:22] LABS: ABG Base Excess 5.9 MMOL/L (-2.5-2.5); ABG HCO3 29.8 MMOL/L (20-26); ABG Oxygen Saturation 97.9 % (95-100); ABG PCO2 47.4 MM HG (35-48); ABG PH 7.425 (7.35-7.45)
[2020-05-09 05:25] LABS: Basophils # 0.1 10*3/uL (0.0-0.2); Basophils % 0.5 % (0.0-0.8); Eosinophils % 0.1 % (0.00-10.9); Hematocrit 25.2 VOL% (35.7-47.0); Hemoglobin 8.1 GM/DL (12.0-16.0); Immature Granulocytes % 7.7 %; Immature Granulocytes Absolute 0.86 #; Lymphocytes # 0.5 10*3/uL (1.4-4.0); Lymphocytes % 4.7 % (21.3-54.2); Mean Corpuscular HGB Conc 32.1 GM/DL (32-36); Mean Platelet Volume 10.2 FL (9.6-12.0); Monocytes % 6.8 % (1.7-12.7); NRBC # 0.04 10*3/uL; Neutrophils % 80.2 % (38.7-73.9); Red Blood Count 2.77 MC/CUMM (3.8-5.5); White Blood Count 11.2 T/CUMM (4-12)
[2020-05-09 05:29] LABS: Platelet Count 86 T/CUMM (130-400)
[2020-05-09 05:50] LABS: Albumin 2.1 G/DL (3.4-5.0); Bilirubin,Total 0.6 MG/DL (0.2-1.0); Calcium 7.5 MG/DL (8.5-10.1); Osmolality,Calculated 318.1 MOS/KG (273-304); Potassium 3.3 MMOL/L (3.5-5.1)
[2020-05-09] MEDS: POTASSIUM CHLORIDE RIDER 20 MEQ in PREMIX 1 EACH IV PRN ×3 (06:14→12:55)
[2020-05-09 06:52] LABS: Band Neutrophils 7 % (0-10); Hypochromasia 1+; Lymphocytes 10 % (20-55); Microcytosis 1+; Platelet Estimate Decreased; Segmented Neutrophils 75 % (50-85); Total Cells Counted 100
[2020-05-09] MEDS: fentaNYL INJ 1,250 MCG in SODIUM CHLORIDE 0.9% 225 ML IV PRN ×4 (07:43→22:17)
[2020-05-09] MEDS: MEROPENEM 500 MG in SODIUM CHLORIDE 0.9% 100 ML IV SCH ×3 (08:40→23:55)
[2020-05-09] MEDS: LEVOFLOXACIN INJ 750 MG in PREMIX 1 EACH IV SCH (08:40)
[2020-05-09] MEDS: ACETAMINOPHEN 650 MG SUPP RECTAL PRN (09:03)
[2020-05-09] MEDS: INSULIN GLARGINE 100 UNIT/ML SUBCUT SCH (10:39)
[2020-05-09] MEDS ORDERED: MIDAZOLAM 2 MG/2 ML VIAL ONE (11:40)
[2020-05-09] MEDS ORDERED: ALBUMIN 5% 12.5 GM in PREMIX 1 EACH IV ONE (12:33)
[2020-05-09] MEDS ORDERED: SEVOFLURANE 1 UNIT/15 MINUTE INH ONE ×2 (12:44)
[2020-05-09] MEDS: TRACE ELEMENTS (5) 1 ML, MULTIVITAMIN INJ 10 ML in AMINO ACIDS/DEXT/LYTES 5-15% 2,000 ML IV SCH (16:06)
[2020-05-10] MEDS: fentaNYL INJ 2,500 MCG in SODIUM CHLORIDE 0.9% 450 ML IV PRN ×3 (02:03→21:32)
[2020-05-10] MEDS: metroNIDAZOLE INJ 500 MG in PREMIX 1 EACH IV SCH ×4 (03:02→20:35)
[2020-05-10] MEDS: INSULIN LISPRO 100 UNIT/ML SUBCUT SCH ×5 (04:54→20:35)
[2020-05-10 05:13] LABS: Basophils % 0.2 % (0.0-0.8); Eosinophils % 0.1 % (0.00-10.9); Hematocrit 24.6 VOL% (35.7-47.0); Hemoglobin 7.8 GM/DL (12.0-16.0); Immature Granulocytes % 7.5 %; Immature Granulocytes Absolute 1.03 #; Lymphocytes # 0.8 10*3/uL (1.4-4.0); Lymphocytes % 5.6 % (21.3-54.2); Mean Corpuscular HGB Conc 31.7 GM/DL (32-36); Mean Corpuscular Volume 92.8 FL (87-102); Mean Platelet Volume 10.5 FL (9.6-12.0); Monocytes % 5.1 % (1.7-12.7); Neutrophils % 81.5 % (38.7-73.9); Platelet Count 97 T/CUMM (130-400); Red Blood Count 2.65 MC/CUMM (3.8-5.5); Red Cell Distribution Width 14.6 % (9.3-17.3); White Blood Count 13.7 T/CUMM (4-12)
[2020-05-10 05:15] LABS: ABG Base Excess 3.4 MMOL/L (-2.5-2.5); ABG HCO3 27.5 MMOL/L (20-26); ABG Oxygen Saturation 97.8 % (95-100); ABG PH 7.388 (7.35-7.45); ABG TCO2 27.1 MMOL/L (23-27)
[2020-05-10 05:26] LABS: Alanine Aminotransferase 14 U/L (13-56); Albumin 1.9 G/DL (3.4-5.0); Alkaline Phosphatase 45 U/L (45-117); Aspartate Amino Transferase 13 U/L (0-37); Bilirubin,Total < 0.39 MG/DL (0.2-1.0); Blood Urea Nitrogen 56 MG/DL (7-18); Calcium 7.2 MG/DL (8.5-10.1); Carbon Dioxide 29 MMOL/L (21-32); Estimated Glom Filtration Rate 56 ML/MIN; Glucose 215 MG/DL (74-106); Osmolality,Calculated 320.9 MOS/KG (273-304); Potassium 3.7 MMOL/L (3.5-5.1); Sodium 151 MMOL/L (136-145); Total Protein 4.4 G/DL (6.4-8.3)
[2020-05-10 05:44] LABS: Potassium,Urine Random 27 MMOL/L
[2020-05-10 05:59] LABS: Band Neutrophils 40 % (0-10); Lymphocytes 3 % (20-55); Metamyelocytes 3 %; Myelocytes 3 %; Platelet Estimate Decreased; Segmented Neutrophils 48 % (50-85); Total Cells Counted 100
[2020-05-10 06:00] LABS: Anisocytosis 1+
[2020-05-10] MEDS: HYDROCORTISONE 100 MG VIAL IV SCH ×3 (06:01→20:35)
[2020-05-10] MEDS: POTASSIUM CHLORIDE RIDER 20 MEQ in PREMIX 1 EACH IV PRN (07:00)
[2020-05-10] MEDS: MEROPENEM 500 MG in SODIUM CHLORIDE 0.9% 100 ML IV SCH ×2 (07:33→16:23)
[2020-05-10] MEDS: INSULIN GLARGINE 100 UNIT/ML SUBCUT SCH (09:39)
[2020-05-10] MEDS: DEXMEDETOMIDINE 200 MCG in SODIUM CHLORIDE 0.9% 48 ML IV PRN ×3 (11:15→22:07)
[2020-05-10] MEDS: amLODIPine 10 MG TABLET PER TUBE SCH (12:20)
[2020-05-10] MEDS ORDERED: CALCIUM GLUCONATE 1,000 MG in SODIUM CHLORIDE 0.9% 100 ML IV ONE (15:00)
[2020-05-10] MEDS: TRACE ELEMENTS (5) 1 ML, MULTIVITAMIN INJ 10 ML in AMINO ACIDS/DEXT/LYTES 5-15% 2,000 ML IV SCH (16:40)
[2020-05-11] MEDS: INSULIN LISPRO 100 UNIT/ML SUBCUT SCH ×6 (00:16→20:51)
[2020-05-11] MEDS: MEROPENEM 500 MG in SODIUM CHLORIDE 0.9% 100 ML IV SCH ×3 (00:16→16:36)
[2020-05-11] MEDS: metroNIDAZOLE INJ 500 MG in PREMIX 1 EACH IV SCH ×4 (02:38→20:52)
[2020-05-11 04:55] LABS: Basophils # 0.1 10*3/uL (0.0-0.2); Basophils % 0.3 % (0.0-0.8); Eosinophils % 0.2 % (0.00-10.9); Hematocrit 24.9 VOL% (35.7-47.0); Hemoglobin 7.9 GM/DL (12.0-16.0); Immature Granulocytes % 4.1 %; Immature Granulocytes Absolute 0.73 #; Lymphocytes # 0.7 10*3/uL (1.4-4.0); Mean Corpuscular HGB Conc 31.7 GM/DL (32-36); Mean Corpuscular Volume 93.3 FL (87-102); Mean Platelet Volume 10.9 FL (9.6-12.0); Monocytes % 3.9 % (1.7-12.7); Neutrophils % 87.5 % (38.7-73.9); Platelet Count 100 T/CUMM (130-400); Red Blood Count 2.67 MC/CUMM (3.8-5.5); Red Cell Distribution Width 14.6 % (9.3-17.3); White Blood Count 17.9 T/CUMM (4-12)
[2020-05-11] MEDS: HYDROCORTISONE 100 MG VIAL IV SCH ×3 (04:58→20:52)
[2020-05-11] MEDS: DEXMEDETOMIDINE 200 MCG in SODIUM CHLORIDE 0.9% 48 ML IV PRN (04:59)
[2020-05-11 05:04] LABS: ABG Base Excess 1.8 MMOL/L (-2.5-2.5); ABG HCO3 25.8 MMOL/L (20-26); ABG Oxygen Saturation 96.9 % (95-100); ABG PO2 101.1 MM HG (80-95)
[2020-05-11 05:12] LABS: Band Neutrophils 1 % (0-10); Hypochromasia Slight; Lymphocytes 4 % (20-55); Platelet Estimate Adequate; Segmented Neutrophils 90 % (50-85); Total Cells Counted 100
[2020-05-11 05:24] LABS: Albumin 1.4 G/DL (3.4-5.0); Bilirubin,Total 0.6 MG/DL (0.2-1.0); Calcium 7.1 MG/DL (8.5-10.1); Osmolality,Calculated 327.7 MOS/KG (273-304); Potassium 4.1 MMOL/L (3.5-5.1); Total Protein 3.9 G/DL (6.4-8.3)
[2020-05-11] MEDS ORDERED: MIDAZOLAM 2 MG/2 ML VIAL ONE (08:18)
[2020-05-11] MEDS ORDERED: propofoL 200 MG/20 ML VIAL IV ONE (08:18)
[2020-05-11] MEDS ORDERED: PHENYLEPHRINE 1 MG/10 ML SYRINGE IV ONE (08:18)
[2020-05-11] MEDS ORDERED: LIDOCAINE 2% 5 ML VIAL ONE (08:18)
[2020-05-11] MEDS ORDERED: SEVOFLURANE 1 UNIT/15 MINUTE INH ONE (08:18)
[2020-05-11] MEDS ORDERED: fentaNYL 100 MCG/2 ML VIAL ONE (08:19)
[2020-05-11] MEDS ORDERED: NOREPINEPHRINE 4 MG/4 ML VIAL IV ONE (08:44)
[2020-05-11] MEDS: INSULIN GLARGINE 100 UNIT/ML SUBCUT SCH (09:23)
[2020-05-11] MEDS: amLODIPine 10 MG TABLET PER TUBE SCH (09:23)
[2020-05-11] MEDS: LEVOFLOXACIN INJ 750 MG in PREMIX 1 EACH IV SCH (09:32)
[2020-05-11] MEDS: NOREPINEPHRINE 8 MG in SODIUM CHLORIDE 0.9% 242 ML IV PRN (11:58)
[2020-05-11] MEDS ORDERED: amLODIPine 10 MG TABLET PER TUBE SCH (12:00)
[2020-05-11] MEDS: ALBUMIN 25% 12.5 GM in PREMIX 1 EACH IV SCH (12:24)
[2020-05-11] MEDS: fentaNYL INJ 2,500 MCG in SODIUM CHLORIDE 0.9% 450 ML IV PRN ×3 (13:27→21:13)
[2020-05-11] MEDS ORDERED: SODIUM CHLORIDE 0.45% 1,000 ML IV SCH (14:00)
[2020-05-11] MEDS ORDERED: DEXTROSE 10% 1,000 ML IV PRN (14:21)
[2020-05-11] MEDS: TRACE ELEMENTS (5) 1 ML, MULTIVITAMIN INJ 10 ML in AMINO ACIDS/DEXT/LYTES 5-15% 2,000 ML IV SCH ×2 (16:33→16:38)
[2020-05-11] MEDS: ACETAMINOPHEN 650 MG SUPP RECTAL PRN (18:00)
[2020-05-12] MEDS: INSULIN LISPRO 100 UNIT/ML SUBCUT SCH ×7 (00:02→23:57)
[2020-05-12] MEDS: MEROPENEM 500 MG in SODIUM CHLORIDE 0.9% 100 ML IV SCH ×3 (00:02→16:10)
[2020-05-12] MEDS: ALBUMIN 25% 12.5 GM in PREMIX 1 EACH IV SCH ×3 (00:02→23:57)
[2020-05-12] MEDS: fentaNYL INJ 2,500 MCG in SODIUM CHLORIDE 0.9% 450 ML IV PRN ×3 (03:56→20:01)
[2020-05-12] MEDS: metroNIDAZOLE INJ 500 MG in PREMIX 1 EACH IV SCH ×4 (03:59→20:32)
[2020-05-12 04:37] LABS: ABG Base Excess 0.1 MMOL/L (-2.5-2.5); ABG HCO3 24.5 MMOL/L (20-26); ABG Oxygen Saturation 97.9 % (95-100); ABG PCO2 46.7 MM HG (35-48); ABG PH 7.352 (7.35-7.45)
[2020-05-12 04:40] LABS: Basophils # 0.1 10*3/uL (0.0-0.2); Basophils % 0.4 % (0.0-0.8); Eosinophils # 0.1 10*3/uL (0.0-0.87); Eosinophils % 0.2 % (0.00-10.9); Hematocrit 27.4 VOL% (35.7-47.0); Hemoglobin 8.3 GM/DL (12.0-16.0); Immature Granulocytes % 2.4 %; Immature Granulocytes Absolute 0.61 #; Lymphocytes # 0.9 10*3/uL (1.4-4.0); Lymphocytes % 3.6 % (21.3-54.2); Mean Corpuscular HGB Conc 30.3 GM/DL (32-36); Mean Corpuscular Volume 94.5 FL (87-102); Monocytes % 3.6 % (1.7-12.7); Neutrophils % 89.8 % (38.7-73.9); Platelet Count 101 T/CUMM (130-400); Red Cell Distribution Width 15.1 % (9.3-17.3)
[2020-05-12 05:01] LABS: Lymphocytes 5 % (20-55); Segmented Neutrophils 90 % (50-85); Total Cells Counted 100
[2020-05-12 05:03] LABS: Albumin 1.3 G/DL (3.4-5.0); Bilirubin,Total 0.4 MG/DL (0.2-1.0); Calcium 7.3 MG/DL (8.5-10.1); Hypochromasia 1+; Osmolality,Calculated 326.6 MOS/KG (273-304); Platelet Estimate Decreased; Potassium 4.3 MMOL/L (3.5-5.1); Total Protein 3.7 G/DL (6.4-8.3)
[2020-05-12] MEDS: HYDROCORTISONE 100 MG VIAL IV SCH ×3 (05:32→20:33)
[2020-05-12] MEDS: INSULIN GLARGINE 100 UNIT/ML SUBCUT SCH (08:49)
[2020-05-12] MEDS: DEXMEDETOMIDINE 200 MCG in SODIUM CHLORIDE 0.9% 48 ML IV PRN ×2 (10:01→18:22)
[2020-05-12] MEDS: amLODIPine 10 MG TABLET PER TUBE SCH (11:43)
[2020-05-12 12:59] LABS: ABG HCO3 24.5 MMOL/L (20-26); ABG Oxygen Saturation 98.2 % (95-100); ABG PCO2 41.5 MM HG (35-48); ABG PH 7.388 (7.35-7.45); ABG TCO2 23.4 MMOL/L (23-27)
[2020-05-12] MEDS: FAT EMULSION 20% 250 ML IV SCH (14:57)
[2020-05-12] MEDS: TRACE ELEMENTS (5) 1 ML, MULTIVITAMIN INJ 10 ML in AMINO ACIDS/DEXT/LYTES 5-15% 2,000 ML IV SCH (16:56)
[2020-05-13] MEDS: MEROPENEM 500 MG in SODIUM CHLORIDE 0.9% 100 ML IV SCH ×2 (01:56→11:30)
[2020-05-13] MEDS: metroNIDAZOLE INJ 500 MG in PREMIX 1 EACH IV SCH ×4 (03:12→20:24)
[2020-05-13 04:21] LABS: ABG Base Excess -1.4 MMOL/L (-2.5-2.5); ABG HCO3 23.3 MMOL/L (20-26); ABG Oxygen Saturation 97.9 % (95-100); ABG PCO2 44.2 MM HG (35-48); ABG PH 7.347 (7.35-7.45)
[2020-05-13 04:36] LABS: Basophils % 0.2 % (0.0-0.8); Eosinophils # 0.1 10*3/uL (0.0-0.87); Eosinophils % 0.7 % (0.00-10.9); Hematocrit 22.7 VOL% (35.7-47.0); Immature Granulocytes % 1.3 %; Immature Granulocytes Absolute 0.23 #; Lymphocytes # 0.7 10*3/uL (1.4-4.0); Lymphocytes % 3.8 % (21.3-54.2); Mean Corpuscular HGB Conc 30.8 GM/DL (32-36); Mean Corpuscular Volume 96.2 FL (87-102); Mean Platelet Volume 11.6 FL (9.6-12.0); Monocytes % 4.2 % (1.7-12.7); Neutrophils % 89.8 % (38.7-73.9); Platelet Count 92 T/CUMM (130-400); Red Blood Count 2.36 MC/CUMM (3.8-5.5); Red Cell Distribution Width 15.3 % (9.3-17.3); White Blood Count 17.2 T/CUMM (4-12)
[2020-05-13] MEDS: DEXMEDETOMIDINE 200 MCG in SODIUM CHLORIDE 0.9% 48 ML IV PRN ×2 (04:52→19:05)
[2020-05-13 04:53] LABS: Alanine Aminotransferase < 9 U/L (13-56); Albumin 1.6 G/DL (3.4-5.0); Alkaline Phosphatase 48 U/L (45-117); Aspartate Amino Transferase 15 U/L (0-37); Blood Urea Nitrogen 68 MG/DL (7-18); Calcium 7.5 MG/DL (8.5-10.1); Carbon Dioxide 26 MMOL/L (21-32); Estimated Glom Filtration Rate 52 ML/MIN; Glucose 176 MG/DL (74-106); Osmolality,Calculated 326.6 MOS/KG (273-304); Potassium 4.3 MMOL/L (3.5-5.1); Sodium 153 MMOL/L (136-145)
[2020-05-13] MEDS: fentaNYL INJ 2,500 MCG in SODIUM CHLORIDE 0.9% 450 ML IV PRN ×2 (04:53→14:40)
[2020-05-13 05:04] LABS: Band Neutrophils 2 % (0-10); Hypochromasia 1+; Lymphocytes 4 % (20-55); Microcytosis 1+; Ovalocytes Slight; Platelet Estimate Decreased; Segmented Neutrophils 92 % (50-85); Total Cells Counted 100
[2020-05-13] MEDS: INSULIN LISPRO 100 UNIT/ML SUBCUT SCH ×6 (05:08→23:50)
[2020-05-13] MEDS: INSULIN GLARGINE 100 UNIT/ML SUBCUT SCH (09:09)
[2020-05-13] MEDS: HYDROCORTISONE 100 MG VIAL IV SCH ×2 (09:10→20:24)
[2020-05-13] MEDS: amLODIPine 10 MG TABLET PER TUBE SCH (09:20)
[2020-05-13] MEDS: LEVOFLOXACIN INJ 750 MG in PREMIX 1 EACH IV SCH (09:42)
[2020-05-13] MEDS ORDERED: FUROSEMIDE 40 MG/4 ML VIAL IV ONE (11:00)
[2020-05-13] MEDS: NOREPINEPHRINE 8 MG in SODIUM CHLORIDE 0.9% 242 ML IV PRN (13:45)
[2020-05-13] MEDS: ALBUMIN 25% 12.5 GM in PREMIX 1 EACH IV SCH ×2 (13:58→23:50)
[2020-05-13] MEDS: VANCOMYCIN INJ 1,500 MG in SODIUM CHLORIDE 0.9% 500 ML IV SCH (16:51)
[2020-05-13] MEDS: DEXTROSE IV SCH (17:26)
[2020-05-13] MEDS: AMINO ACIDS IV SCH (17:26)
[2020-05-13] MEDS: MULTIVITAMIN IV SCH (17:26)
[2020-05-13] MEDS: TRACE ELEMENTS IV SCH (17:26)
[2020-05-14] MEDS: metroNIDAZOLE INJ 500 MG in PREMIX 1 EACH IV SCH ×4 (02:23→21:34)
[2020-05-14 03:47] LABS: ABG Base Excess -0.7 MMOL/L (-2.5-2.5); ABG HCO3 23.8 MMOL/L (20-26); ABG Oxygen Saturation 97.3 % (95-100); ABG PCO2 42.6 MM HG (35-48); ABG PO2 98.9 MM HG (80-95); ABG TCO2 22.3 MMOL/L (23-27)
[2020-05-14 03:48] LABS: Basophils # 0.1 10*3/uL (0.0-0.2); Basophils % 0.4 % (0.0-0.8); Eosinophils # 0.1 10*3/uL (0.0-0.87); Eosinophils % 0.5 % (0.00-10.9); Hematocrit 32.5 VOL% (35.7-47.0); Immature Granulocytes Absolute 0.22 #; Lymphocytes % 4.4 % (21.3-54.2); Mean Corpuscular HGB Conc 32.3 GM/DL (32-36); Mean Corpuscular Volume 90.8 FL (87-102); Mean Platelet Volume 11.1 FL (9.6-12.0); Monocytes % 5.8 % (1.7-12.7); NRBC # 0.02 10*3/uL; Neutrophils % 87.9 % (38.7-73.9); Platelet Count 126 T/CUMM (130-400); White Blood Count 22.1 T/CUMM (4-12)
[2020-05-14 03:50] LABS: Hemoglobin 10.5 GM/DL (12.0-16.0); Red Blood Count 3.58 MC/CUMM (3.8-5.5)
[2020-05-14 04:09] LABS: Alanine Aminotransferase < 9 U/L (13-56); Albumin 1.7 G/DL (3.4-5.0); Alkaline Phosphatase 59 U/L (45-117); Aspartate Amino Transferase 18 U/L (0-37); Blood Urea Nitrogen 62 MG/DL (7-18); Calcium 7.4 MG/DL (8.5-10.1); Carbon Dioxide 25 MMOL/L (21-32); Estimated Glom Filtration Rate 58 ML/MIN; Glucose 178 MG/DL (74-106); Osmolality,Calculated 324.6 MOS/KG (273-304); Potassium 3.8 MMOL/L (3.5-5.1); Sodium 153 MMOL/L (136-145); Total Protein 4.6 G/DL (6.4-8.3)
[2020-05-14 04:10] LABS: Band Neutrophils 3 % (0-10); Hypochromasia 1+; Lymphocytes 3 % (20-55); Microcytosis 1+; Ovalocytes Slight; Platelet Estimate Normal; Segmented Neutrophils 91 % (50-85); Total Cells Counted 100
[2020-05-14] MEDS: INSULIN LISPRO 100 UNIT/ML SUBCUT SCH ×6 (04:47→23:13)
[2020-05-14] MEDS: POTASSIUM CHLORIDE RIDER 20 MEQ in PREMIX 1 EACH IV PRN (04:47)
[2020-05-14] MEDS ORDERED: MIDAZOLAM 2 MG/2 ML VIAL ONE (07:08)
[2020-05-14] MEDS ORDERED: fentaNYL 100 MCG/2 ML VIAL ONE (07:09)
[2020-05-14] MEDS ORDERED: PHENYLEPHRINE 1 MG/10 ML SYRINGE IV ONE ×2 (07:47→07:57)
[2020-05-14] MEDS ORDERED: propofoL 200 MG/20 ML VIAL IV ONE (07:47)
[2020-05-14] MEDS ORDERED: SEVOFLURANE 1 UNIT/15 MINUTE INH ONE ×5 (07:47→08:27)
[2020-05-14] MEDS ORDERED: ROCURONIUM 50 MG/5 ML VIAL IV ONE ×3 (07:47→08:07)
[2020-05-14] MEDS ORDERED: DEXTROSE 5% 1,000 ML IV SCH (10:00)
[2020-05-14] MEDS: fentaNYL INJ 2,500 MCG in SODIUM CHLORIDE 0.9% 450 ML IV PRN ×2 (10:32→22:25)
[2020-05-14] MEDS: amLODIPine 10 MG TABLET PER TUBE SCH (10:34)
[2020-05-14] MEDS: INSULIN GLARGINE 100 UNIT/ML SUBCUT SCH (10:34)
[2020-05-14] MEDS: HYDROCORTISONE 100 MG VIAL IV SCH ×2 (10:36→21:34)
[2020-05-14] MEDS: FAT EMULSION 20% 250 ML IV SCH (14:57)
[2020-05-14] MEDS: VANCOMYCIN INJ 1,500 MG in SODIUM CHLORIDE 0.9% 500 ML IV SCH (16:44)
[2020-05-14] MEDS: TRACE ELEMENTS IV SCH (16:54)
[2020-05-14] MEDS: AMINO ACIDS IV SCH (16:54)
[2020-05-14] MEDS: DEXTROSE IV SCH (16:54)
[2020-05-14] MEDS: MULTIVITAMIN IV SCH (16:54)
[2020-05-14] MEDS: DEXMEDETOMIDINE 400 MCG in SODIUM CHLORIDE 0.9% 96 ML IV PRN (20:02)
[2020-05-15 03:44] LABS: Basophils % 0.2 % (0.0-0.8); Eosinophils # 0.2 10*3/uL (0.0-0.87); Eosinophils % 0.7 % (0.00-10.9); Hematocrit 31.3 VOL% (35.7-47.0); Hemoglobin 10.1 GM/DL (12.0-16.0); Immature Granulocytes % 1.2 %; Immature Granulocytes Absolute 0.27 #; Lymphocytes # 0.8 10*3/uL (1.4-4.0); Lymphocytes % 3.8 % (21.3-54.2); Mean Corpuscular HGB Conc 32.3 GM/DL (32-36); Mean Corpuscular Volume 91.5 FL (87-102); Mean Platelet Volume 10.7 FL (9.6-12.0); Monocytes % 6.9 % (1.7-12.7); Neutrophils % 87.2 % (38.7-73.9); Platelet Count 127 T/CUMM (130-400); Red Blood Count 3.42 MC/CUMM (3.8-5.5); Red Cell Distribution Width 15.8 % (9.3-17.3); White Blood Count 21.8 T/CUMM (4-12)
[2020-05-15 04:07] LABS: Alanine Aminotransferase < 9 U/L (13-56); Albumin 1.3 G/DL (3.4-5.0); Alkaline Phosphatase 65 U/L (45-117); Aspartate Amino Transferase 20 U/L (0-37); Blood Urea Nitrogen 53 MG/DL (7-18); Calcium 7.1 MG/DL (8.5-10.1); Carbon Dioxide 25 MMOL/L (21-32); Estimated Glom Filtration Rate 58 ML/MIN; Glucose 147 MG/DL (74-106); Osmolality,Calculated 319.6 MOS/KG (273-304); Potassium 3.9 MMOL/L (3.5-5.1); Sodium 153 MMOL/L (136-145); Total Protein 4.1 G/DL (6.4-8.3)
[2020-05-15] MEDS: metroNIDAZOLE INJ 500 MG in PREMIX 1 EACH IV SCH ×4 (04:13→20:56)
[2020-05-15 04:15] LABS: Burr Cells Slight; Hypochromasia 1+; Lymphocytes 7 % (20-55); Microcytosis 1+; Ovalocytes Slight; Segmented Neutrophils 89 % (50-85); Total Cells Counted 100
[2020-05-15 04:31] LABS: ABG Base Excess -1.5 MMOL/L (-2.5-2.5); ABG HCO3 23.2 MMOL/L (20-26); ABG Oxygen Saturation 98.4 % (95-100); ABG PCO2 36.9 MM HG (35-48); ABG PH 7.401 (7.35-7.45); ABG TCO2 20.7 MMOL/L (23-27); Allen Test Positive; Pt O2 Delivery Device Ventilator
[2020-05-15] MEDS: INSULIN LISPRO 100 UNIT/ML SUBCUT SCH ×6 (04:52→23:42)
[2020-05-15] MEDS: POTASSIUM CHLORIDE RIDER 20 MEQ in PREMIX 1 EACH IV PRN (06:15)
[2020-05-15] MEDS: INSULIN GLARGINE 100 UNIT/ML SUBCUT SCH (08:46)
[2020-05-15] MEDS: HYDROCORTISONE 100 MG VIAL IV SCH ×2 (09:01→20:57)
[2020-05-15] MEDS: LEVOFLOXACIN INJ 750 MG in PREMIX 1 EACH IV SCH (09:01)
[2020-05-15] MEDS: amLODIPine 10 MG TABLET PER TUBE SCH (09:05)
[2020-05-15] MEDS: HYDROmorphone 2 MG/1 ML VIAL IV PRN (11:35)
[2020-05-15] MEDS: DEXMEDETOMIDINE 400 MCG in SODIUM CHLORIDE 0.9% 96 ML IV PRN (13:48)
[2020-05-15 16:06] LABS: Calcium 7.1 MG/DL (8.5-10.1)
[2020-05-15] MEDS: fentaNYL INJ 2,500 MCG in SODIUM CHLORIDE 0.9% 450 ML IV PRN (16:38)
[2020-05-15] MEDS: MULTIVITAMIN IV SCH (17:00)
[2020-05-15] MEDS: AMINO ACIDS IV SCH (17:00)
[2020-05-15] MEDS: DEXTROSE IV SCH (17:00)
[2020-05-15] MEDS: TRACE ELEMENTS IV SCH (17:00)
[2020-05-15] MEDS: NOREPINEPHRINE 8 MG in SODIUM CHLORIDE 0.9% 242 ML IV PRN (23:43)
[2020-05-16] MEDS: DEXMEDETOMIDINE 400 MCG in SODIUM CHLORIDE 0.9% 96 ML IV PRN ×2 (01:00→21:21)
[2020-05-16] MEDS: metroNIDAZOLE INJ 500 MG in PREMIX 1 EACH IV SCH ×4 (03:59→21:17)
[2020-05-16 04:21] LABS: ABG Base Excess -3.4 MMOL/L (-2.5-2.5); ABG HCO3 20.2 MMOL/L (20-26); ABG Oxygen Saturation 97.9 % (95-100); ABG PCO2 31.6 MM HG (35-48); ABG PH 7.423 (7.35-7.45); ABG PO2 120.9 MM HG (80-95); ABG TCO2 21.1 MMOL/L (23-27); Allen Test Positive; Pt O2 Delivery Device Ventilator
[2020-05-16 04:44] LABS: Basophils # 0.1 10*3/uL (0.0-0.2); Basophils % 0.3 % (0.0-0.8); Eosinophils # 0.1 10*3/uL (0.0-0.87); Eosinophils % 0.3 % (0.00-10.9); Hemoglobin 9.8 GM/DL (12.0-16.0); Immature Granulocytes % 0.9 %; Immature Granulocytes Absolute 0.16 #; Lymphocytes # 0.8 10*3/uL (1.4-4.0); Lymphocytes % 4.6 % (21.3-54.2); Mean Corpuscular HGB Conc 32.7 GM/DL (32-36); Mean Corpuscular Volume 91.7 FL (87-102); Monocytes % 6.3 % (1.7-12.7); Neutrophils % 87.6 % (38.7-73.9); Platelet Count 134 T/CUMM (130-400); Red Blood Count 3.27 MC/CUMM (3.8-5.5); Red Cell Distribution Width 15.3 % (9.3-17.3); White Blood Count 17.2 T/CUMM (4-12)
[2020-05-16 04:58] LABS: Alanine Aminotransferase < 9 U/L (13-56); Alkaline Phosphatase 62 U/L (45-117); Aspartate Amino Transferase 17 U/L (0-37); Blood Urea Nitrogen 50 MG/DL (7-18); Calcium 7.2 MG/DL (8.5-10.1); Carbon Dioxide 23 MMOL/L (21-32); Estimated Glom Filtration Rate 64 ML/MIN; Glucose 214 MG/DL (74-106); Potassium 4.4 MMOL/L (3.5-5.1); Sodium 150 MMOL/L (136-145); Total Protein 3.8 G/DL (6.4-8.3)
[2020-05-16 05:06] LABS: Band Neutrophils 4 % (0-10); Eosinophils 1 % (0-10); Lymphocytes 3 % (20-55); Segmented Neutrophils 88 % (50-85); Total Cells Counted 100
[2020-05-16 05:07] LABS: Hypochromasia 1+; Microcytosis 1+
[2020-05-16 05:08] LABS: Platelet Estimate Adequate; Target Cells Slight
[2020-05-16] MEDS: INSULIN LISPRO 100 UNIT/ML SUBCUT SCH ×5 (05:31→21:20)
[2020-05-16] MEDS: HYDROCORTISONE 100 MG VIAL IV SCH ×2 (08:06→21:18)
[2020-05-16] MEDS: INSULIN GLARGINE 100 UNIT/ML SUBCUT SCH (08:09)
[2020-05-16] MEDS: amLODIPine 10 MG TABLET PER TUBE SCH (08:28)
[2020-05-16] MEDS: FAT EMULSION 20% 250 ML IV SCH (14:13)
[2020-05-16] MEDS: AMINO ACIDS IV SCH (18:17)
[2020-05-16] MEDS: DEXTROSE IV SCH (18:17)
[2020-05-16] MEDS: MULTIVITAMIN IV SCH (18:17)
[2020-05-16] MEDS: TRACE ELEMENTS IV SCH (18:17)
[2020-05-16] MEDS: HYDROmorphone 2 MG/1 ML VIAL IV PRN (20:40)
[2020-05-16] MEDS ORDERED: DEXTROSE 10% 1,000 ML IV SCH (23:00)
[2020-05-17] MEDS: INSULIN LISPRO 100 UNIT/ML SUBCUT SCH ×6 (00:49→19:57)
[2020-05-17 03:04] LABS: ABG Base Excess -4.5 MMOL/L (-2.5-2.5); ABG HCO3 17.9 MMOL/L (20-26); ABG Oxygen Saturation 96.5 % (95-100); ABG PCO2 25.5 MM HG (35-48); ABG PH 7.463 (7.35-7.45); ABG PO2 92.2 MM HG (80-95); ABG TCO2 18.6 MMOL/L (23-27); Allen Test Positive; Pt O2 Delivery Device Ventilator
[2020-05-17] MEDS: metroNIDAZOLE INJ 500 MG in PREMIX 1 EACH IV SCH ×4 (03:20→20:52)
[2020-05-17] MEDS: HYDROmorphone 2 MG/1 ML VIAL IV PRN ×3 (04:15→22:25)
[2020-05-17 06:43] LABS: Basophils # 0.1 10*3/uL (0.0-0.2); Basophils % 0.3 % (0.0-0.8); Hematocrit 33.3 VOL% (35.7-47.0); Hemoglobin 10.6 GM/DL (12.0-16.0); Immature Granulocytes % 0.9 %; Immature Granulocytes Absolute 0.19 #; Lymphocytes # 0.7 10*3/uL (1.4-4.0); Lymphocytes % 3.2 % (21.3-54.2); Mean Corpuscular HGB Conc 31.8 GM/DL (32-36); Mean Corpuscular Volume 91.7 FL (87-102); Mean Platelet Volume 11.6 FL (9.6-12.0); Monocytes % 5.4 % (1.7-12.7); Neutrophils % 90.2 % (38.7-73.9); Platelet Count 152 T/CUMM (130-400); Red Blood Count 3.63 MC/CUMM (3.8-5.5); Red Cell Distribution Width 15.2 % (9.3-17.3); White Blood Count 21.3 T/CUMM (4-12)
[2020-05-17 07:01] LABS: Band Neutrophils 3 % (0-10); Hypochromasia 1+; Lymphocytes 2 % (20-55); Microcytosis 1+; Ovalocytes Slight; Platelet Estimate Adequate; Segmented Neutrophils 92 % (50-85); Total Cells Counted 100
[2020-05-17 07:31] LABS: Albumin 0.9 G/DL (3.4-5.0); Bilirubin,Total 1.5 MG/DL (0.2-1.0); Calcium 7.3 MG/DL (8.5-10.1); Osmolality,Calculated 310.3 MOS/KG (273-304); Potassium 4.6 MMOL/L (3.5-5.1); Total Protein 3.9 G/DL (6.4-8.3)
[2020-05-17] MEDS: amLODIPine 10 MG TABLET PER TUBE SCH (09:00)
[2020-05-17] MEDS: HYDROCORTISONE 100 MG VIAL IV SCH ×2 (09:14→20:52)
[2020-05-17] MEDS: LEVOFLOXACIN INJ 750 MG in PREMIX 1 EACH IV SCH (09:16)
[2020-05-17] MEDS ORDERED: MIDAZOLAM 2 MG/2 ML VIAL ONE (10:27)
[2020-05-17] MEDS ORDERED: EPINEPHrine 1 MG/ML VIAL ONE (10:56)
[2020-05-17] MEDS ORDERED: ETOMIDATE 40 MG/20 ML VIAL IV ONE (10:56)
[2020-05-17] MEDS ORDERED: SEVOFLURANE 1 UNIT/15 MINUTE INH ONE ×3 (10:56→11:15)
[2020-05-17] MEDS ORDERED: ROCURONIUM 50 MG/5 ML VIAL IV ONE (10:56)
[2020-05-17] MEDS ORDERED: PHENYLEPHRINE 1 MG/10 ML SYRINGE IV ONE (10:56)
[2020-05-17] MEDS ORDERED: PHENYLEPHRINE 10 MG/1 ML VIAL IV ONE (11:01)
[2020-05-17] MEDS ORDERED: SODIUM CHLORIDE 0.9% 100 ML IV ONE (11:15)
[2020-05-17] MEDS: ONDANSETRON 4 MG/2 ML VIAL IV PRN (15:38)
[2020-05-17] MEDS: SODIUM CHLORIDE 0.45% 1,000 ML IV SCH (18:33)
[2020-05-18] MEDS: INSULIN LISPRO 100 UNIT/ML SUBCUT SCH ×6 (00:09→20:15)
[2020-05-18] MEDS: HYDROmorphone 2 MG/1 ML VIAL IV PRN ×3 (03:16→15:48)
[2020-05-18] MEDS: metroNIDAZOLE INJ 500 MG in PREMIX 1 EACH IV SCH ×4 (03:16→20:16)
[2020-05-18 03:30] LABS: ABG Base Excess -2.8 MMOL/L (-2.5-2.5); ABG HCO3 22.1 MMOL/L (20-26); ABG Oxygen Saturation 98.6 % (95-100); ABG PCO2 31.3 MM HG (35-48); ABG TCO2 18.8 MMOL/L (23-27); Allen Test Positive; Pt O2 Delivery Device Ventilator
[2020-05-18 04:24] LABS: Basophils # 0.1 10*3/uL (0.0-0.2); Basophils % 0.3 % (0.0-0.8); Hematocrit 30.8 VOL% (35.7-47.0); Hemoglobin 10.1 GM/DL (12.0-16.0); Immature Granulocytes % 0.9 %; Immature Granulocytes Absolute 0.22 #; Lymphocytes % 4.1 % (21.3-54.2); Mean Corpuscular HGB Conc 32.8 GM/DL (32-36); Mean Corpuscular Volume 90.9 FL (87-102); Mean Platelet Volume 11.5 FL (9.6-12.0); Monocytes % 5.3 % (1.7-12.7); Neutrophils % 89.4 % (38.7-73.9); Platelet Count 219 T/CUMM (130-400); Red Blood Count 3.39 MC/CUMM (3.8-5.5); Red Cell Distribution Width 15.5 % (9.3-17.3); White Blood Count 23.5 T/CUMM (4-12)
[2020-05-18 04:36] LABS: Albumin 1.1 G/DL (3.4-5.0); Bilirubin,Total 0.5 MG/DL (0.2-1.0); Calcium 7.3 MG/DL (8.5-10.1); Osmolality,Calculated 319.3 MOS/KG (273-304); Potassium 4.8 MMOL/L (3.5-5.1); Total Protein 4.4 G/DL (6.4-8.3)
[2020-05-18 04:53] LABS: Band Neutrophils 1 % (0-10); Eosinophils 1 % (0-10); Lymphocytes 2 % (20-55); Segmented Neutrophils 95 % (50-85); Total Cells Counted 100
[2020-05-18 04:54] LABS: Hypochromasia 1+; Microcytosis 1+; Target Cells Slight
[2020-05-18 04:55] LABS: Burr Cells Slight
[2020-05-18] MEDS: SODIUM CHLORIDE 0.45% 1,000 ML IV SCH ×3 (06:14→15:47)
[2020-05-18] MEDS: amLODIPine 10 MG TABLET PER TUBE SCH ×2 (08:15→09:32)
[2020-05-18] MEDS: HYDROCORTISONE 100 MG VIAL IV SCH (08:25)
[2020-05-18] MEDS: ASPIRIN CHEW 81 MG TABLET PO SCH (15:48)
[2020-05-18] MEDS: ESCITALOPRAM 10 MG TABLET PO SCH (15:48)
[2020-05-18] MEDS: carvediloL 6.25 MG TABLET PO SCH (15:48)
[2020-05-18] MEDS: ATORVASTATIN 40 MG TABLET PO SCH (20:16)
[2020-05-19] MEDS: INSULIN LISPRO 100 UNIT/ML SUBCUT SCH ×6 (00:36→23:58)
[2020-05-19] MEDS: SODIUM CHLORIDE 0.45% 1,000 ML IV SCH ×5 (00:37→21:27)
[2020-05-19] MEDS: metroNIDAZOLE INJ 500 MG in PREMIX 1 EACH IV SCH ×4 (03:26→20:16)
[2020-05-19 06:49] LABS: Basophils # 0.1 10*3/uL (0.0-0.2); Basophils % 0.5 % (0.0-0.8); Eosinophils % 0.2 % (0.00-10.9); Hematocrit 28.1 VOL% (35.7-47.0); Hemoglobin 9.1 GM/DL (12.0-16.0); Immature Granulocytes % 0.9 %; Immature Granulocytes Absolute 0.15 #; Lymphocytes # 0.6 10*3/uL (1.4-4.0); Lymphocytes % 3.3 % (21.3-54.2); Mean Corpuscular HGB Conc 32.4 GM/DL (32-36); Mean Corpuscular Volume 91.5 FL (87-102); Mean Platelet Volume 11.6 FL (9.6-12.0); Monocytes % 4.4 % (1.7-12.7); Neutrophils % 90.7 % (38.7-73.9); Platelet Count 183 T/CUMM (130-400); Red Blood Count 3.07 MC/CUMM (3.8-5.5); Red Cell Distribution Width 15.6 % (9.3-17.3); White Blood Count 16.8 T/CUMM (4-12)
[2020-05-19 07:09] LABS: Calcium 6.9 MG/DL (8.5-10.1); Osmolality,Calculated 315.6 MOS/KG (273-304); Potassium 4.3 MMOL/L (3.5-5.1)
[2020-05-19] MEDS: DEXMEDETOMIDINE 400 MCG in SODIUM CHLORIDE 0.9% 96 ML IV PRN (07:15)
[2020-05-19] MEDS: carvediloL 6.25 MG TABLET PO SCH (08:14)
[2020-05-19] MEDS: ASPIRIN CHEW 81 MG TABLET PO SCH ×2 (08:15→10:54)
[2020-05-19 08:17] LABS: ABG Base Excess -4.5 MMOL/L (-2.5-2.5); ABG HCO3 20.7 MMOL/L (20-26); ABG Oxygen Saturation 98.1 % (95-100); ABG PCO2 32.2 MM HG (35-48); ABG PH 7.393 (7.35-7.45); ABG TCO2 18.1 MMOL/L (23-27); Allen Test Positive; Pt O2 Delivery Device Ventilator
[2020-05-19] MEDS: LEVOFLOXACIN INJ 500 MG in PREMIX 1 EACH IV SCH (08:55)
[2020-05-19] MEDS ORDERED: ROCURONIUM 50 MG/5 ML VIAL IV ONE (09:21)
[2020-05-19 09:22] LABS: Acanthocytes Few; Anisocytosis 2+; Band Neutrophils 5 % (0-10); Eosinophils 1 % (0-10); Hypochromasia 1+; Lymphocytes 4 % (20-55); Macrocytosis 1+; Microcytosis 1+; Platelet Estimate Normal; Segmented Neutrophils 87 % (50-85); Total Cells Counted 100
[2020-05-19] MEDS ORDERED: MIDAZOLAM 2 MG/2 ML VIAL ONE (09:22)
[2020-05-19] MEDS ORDERED: PHENYLEPHRINE 1 MG/10 ML SYRINGE IV ONE (09:57)
[2020-05-19] MEDS ORDERED: SEVOFLURANE 1 UNIT/15 MINUTE INH ONE (09:57)
[2020-05-19] MEDS: ESCITALOPRAM 10 MG TABLET PO SCH (10:53)
[2020-05-19] MEDS: ATORVASTATIN 40 MG TABLET PO SCH (20:16)
[2020-05-20] MEDS: metroNIDAZOLE INJ 500 MG in PREMIX 1 EACH IV SCH ×4 (03:15→20:54)
[2020-05-20 04:29] LABS: Basophils # 0.1 10*3/uL (0.0-0.2); Basophils % 0.5 % (0.0-0.8); Eosinophils # 0.1 10*3/uL (0.0-0.87); Eosinophils % 0.3 % (0.00-10.9); Hematocrit 28.7 VOL% (35.7-47.0); Hemoglobin 9.1 GM/DL (12.0-16.0); Immature Granulocytes % 1.3 %; Immature Granulocytes Absolute 0.23 #; Lymphocytes # 0.5 10*3/uL (1.4-4.0); Lymphocytes % 2.8 % (21.3-54.2); Mean Corpuscular HGB Conc 31.7 GM/DL (32-36); Mean Corpuscular Volume 92.6 FL (87-102); Mean Platelet Volume 11.4 FL (9.6-12.0); Monocytes % 3.9 % (1.7-12.7); Neutrophils % 91.2 % (38.7-73.9); Platelet Count 205 T/CUMM (130-400); Red Cell Distribution Width 15.6 % (9.3-17.3); White Blood Count 18.3 T/CUMM (4-12)
[2020-05-20] MEDS: SODIUM CHLORIDE 0.45% 1,000 ML IV SCH ×3 (04:39→17:13)
[2020-05-20 04:53] LABS: ABG Base Excess -5.9 MMOL/L (-2.5-2.5); ABG HCO3 19.5 MMOL/L (20-26); ABG Oxygen Saturation 97.5 % (95-100); ABG PCO2 28.9 MM HG (35-48); ABG PH 7.399 (7.35-7.45); ABG TCO2 16.4 MMOL/L (23-27); Allen Test Positive; Pt O2 Delivery Device Ventilator
[2020-05-20 05:16] LABS: Albumin 0.8 G/DL (3.4-5.0); Bilirubin,Direct 0.15 MG/DL (0.0-0.20); Bilirubin,Total 1.1 MG/DL (0.2-1.0); Calcium 6.6 MG/DL (8.5-10.1); Potassium 4.1 MMOL/L (3.5-5.1); Total Protein 3.7 G/DL (6.4-8.3)
[2020-05-20 07:18] LABS: Band Neutrophils 3 % (0-10); Hypochromasia Slight; Lymphocytes 4 % (20-55); Metamyelocytes 1 %; Platelet Estimate Normal; Schistocytes Few; Segmented Neutrophils 89 % (50-85); Total Cells Counted 100
[2020-05-20] MEDS: INSULIN LISPRO 100 UNIT/ML SUBCUT SCH ×3 (07:18→17:35)
[2020-05-20] MEDS: FUROSEMIDE 20 MG/2 ML VIAL IV SCH ×2 (09:22→16:01)
[2020-05-20] MEDS: ESCITALOPRAM 10 MG TABLET PO SCH (09:22)
[2020-05-20] MEDS: ASPIRIN CHEW 81 MG TABLET PO SCH (09:22)
[2020-05-20] MEDS ORDERED: CALCIUM CHLORIDE 1,000 MG/10 ML SYRINGE IV ONE (10:13)
[2020-05-20] MEDS ORDERED: CALCIUM GLUCONATE 1,000 MG in SODIUM CHLORIDE 0.9% 100 ML IV ONE (11:30)
[2020-05-20] MEDS: DEXMEDETOMIDINE 400 MCG in SODIUM CHLORIDE 0.9% 96 ML IV PRN (11:53)
[2020-05-20] MEDS: ATORVASTATIN 40 MG TABLET PO SCH (20:54)
[2020-05-21] MEDS: INSULIN LISPRO 100 UNIT/ML SUBCUT SCH ×4 (01:27→18:39)
[2020-05-21 03:53] LABS: Basophils # 0.1 10*3/uL (0.0-0.2); Basophils % 0.4 % (0.0-0.8); Eosinophils # 0.1 10*3/uL (0.0-0.87); Eosinophils % 0.3 % (0.00-10.9); Hematocrit 28.1 VOL% (35.7-47.0); Hemoglobin 9.3 GM/DL (12.0-16.0); Immature Granulocytes % 1.2 %; Immature Granulocytes Absolute 0.23 #; Lymphocytes # 0.6 10*3/uL (1.4-4.0); Lymphocytes % 3.3 % (21.3-54.2); Mean Corpuscular HGB Conc 33.1 GM/DL (32-36); Mean Corpuscular Volume 90.4 FL (87-102); Mean Platelet Volume 11.2 FL (9.6-12.0); Monocytes % 4.1 % (1.7-12.7); Neutrophils % 90.7 % (38.7-73.9); Platelet Count 256 T/CUMM (130-400); Red Blood Count 3.11 MC/CUMM (3.8-5.5); Red Cell Distribution Width 15.8 % (9.3-17.3); White Blood Count 19.2 T/CUMM (4-12)
[2020-05-21 04:07] LABS: Albumin 0.9 G/DL (3.4-5.0); Bilirubin,Direct 0.21 MG/DL (0.0-0.20); Bilirubin,Indirect 0.2 MG/DL (0.0-1.0); Bilirubin,Total 0.4 MG/DL (0.2-1.0); Calcium 6.8 MG/DL (8.5-10.1); Osmolality,Calculated 310.7 MOS/KG (273-304); Potassium 3.7 MMOL/L (3.5-5.1); Total Protein 4.1 G/DL (6.4-8.3)
[2020-05-21 04:32] LABS: Band Neutrophils 3 % (0-10); Hypochromasia 1+; Lymphocytes 2 % (20-55); Microcytosis 1+; Nucleated Red Blood Cells 1 (0-5); Platelet Estimate Adequate; Segmented Neutrophils 92 % (50-85); Total Cells Counted 100
[2020-05-21] MEDS: SODIUM CHLORIDE 0.45% 1,000 ML IV SCH ×3 (04:40→13:45)
[2020-05-21] MEDS: ASPIRIN CHEW 81 MG TABLET PO SCH (09:35)
[2020-05-21] MEDS: ESCITALOPRAM 10 MG TABLET PO SCH (09:35)
[2020-05-21] MEDS: LEVOFLOXACIN INJ 500 MG in PREMIX 1 EACH IV SCH (09:35)
[2020-05-21] MEDS: FUROSEMIDE 20 MG/2 ML VIAL IV SCH ×2 (09:35→17:45)
[2020-05-21] MEDS ORDERED: ROCURONIUM 50 MG/5 ML VIAL IV ONE (13:29)
[2020-05-21] MEDS ORDERED: MIDAZOLAM 2 MG/2 ML VIAL ONE (13:29)
[2020-05-21] MEDS ORDERED: MINERAL OIL/PETROLATUM OPH OINT 3.5 GM TUBE ONE (13:48)
[2020-05-21] MEDS ORDERED: PHENYLEPHRINE 1 MG/10 ML SYRINGE IV ONE (13:56)
[2020-05-21] MEDS ORDERED: ePHEDrine 50 MG/ML VIAL ONE (14:11)
[2020-05-21] MEDS: DEXMEDETOMIDINE 400 MCG in SODIUM CHLORIDE 0.9% 96 ML IV PRN (17:18)
[2020-05-21] MEDS: HYDROmorphone 2 MG/1 ML VIAL IV PRN ×2 (17:45→21:01)
[2020-05-21] MEDS: ATORVASTATIN 40 MG TABLET PO SCH (22:00)
[2020-05-22] MEDS: SODIUM CHLORIDE 0.45% 1,000 ML IV SCH ×4 (00:10→19:47)
[2020-05-22] MEDS: INSULIN LISPRO 100 UNIT/ML SUBCUT SCH ×5 (00:10→23:59)
[2020-05-22 03:58] LABS: ABG Base Excess -3.1 MMOL/L (-2.5-2.5); ABG HCO3 21.8 MMOL/L (20-26); ABG Oxygen Saturation 97.9 % (95-100); ABG PCO2 21.7 MM HG (35-48); ABG PH 7.534 (7.35-7.45); ABG PO2 93.7 MM HG (80-95); ABG TCO2 16.7 MMOL/L (23-27); Allen Test Positive; Pt O2 Delivery Device Ventilator
[2020-05-22 04:12] LABS: Basophils # 0.1 10*3/uL (0.0-0.2); Basophils % 0.6 % (0.0-0.8); Eosinophils % 0.1 % (0.00-10.9); Hematocrit 30.5 VOL% (35.7-47.0); Immature Granulocytes % 2.1 %; Lymphocytes # 0.8 10*3/uL (1.4-4.0); Lymphocytes % 3.9 % (21.3-54.2); Mean Corpuscular HGB Conc 32.8 GM/DL (32-36); Monocytes % 4.1 % (1.7-12.7); Neutrophils % 89.2 % (38.7-73.9); Platelet Count 272 T/CUMM (130-400); Red Blood Count 3.35 MC/CUMM (3.8-5.5); Red Cell Distribution Width 16.2 % (9.3-17.3); White Blood Count 19.2 T/CUMM (4-12)
[2020-05-22 04:35] LABS: Albumin 0.8 G/DL (3.4-5.0); Bilirubin,Total 1.6 MG/DL (0.2-1.0); Osmolality,Calculated 311.7 MOS/KG (273-304); Potassium 4.2 MMOL/L (3.5-5.1); Total Protein 4.1 G/DL (6.4-8.3)
[2020-05-22 04:44] LABS: Band Neutrophils 3 % (0-10); Burr Cells Slight; Hypochromasia Slight; Lymphocytes 2 % (20-55); Microcytosis 1+; Ovalocytes Slight; Platelet Estimate Adequate; Segmented Neutrophils 92 % (50-85); Total Cells Counted 100
[2020-05-22] MEDS: FUROSEMIDE 20 MG/2 ML VIAL IV SCH ×2 (09:06→17:57)
[2020-05-22] MEDS: ASPIRIN CHEW 81 MG TABLET PO SCH (09:06)
[2020-05-22] MEDS: ESCITALOPRAM 10 MG TABLET PO SCH (09:06)
[2020-05-22] MEDS: ONDANSETRON 4 MG/2 ML VIAL IV PRN (21:46)
[2020-05-22] MEDS: ATORVASTATIN 40 MG TABLET PO SCH (21:46)
[2020-05-23] MEDS ORDERED: DIGOXIN 0.5 MG/2 ML AMP IV ONE ×3 (03:26→09:04)
[2020-05-23 03:32] LABS: ABG Base Excess -4.1 MMOL/L (-2.5-2.5); ABG Oxygen Saturation 98.7 % (95-100); ABG PCO2 26.6 MM HG (35-48); ABG PH 7.457 (7.35-7.45); ABG TCO2 17.1 MMOL/L (23-27); Pt O2 Delivery Device Ventilator
[2020-05-23] MEDS: ONDANSETRON 4 MG/2 ML VIAL IV PRN (03:47)
[2020-05-23] MEDS: SODIUM CHLORIDE 0.45% 1,000 ML IV SCH ×2 (03:47→16:03)
[2020-05-23 06:13] LABS: Basophils # 0.1 10*3/uL (0.0-0.2); Basophils % 0.6 % (0.0-0.8); Eosinophils # 0.1 10*3/uL (0.0-0.87); Eosinophils % 0.2 % (0.00-10.9); Hematocrit 28.3 VOL% (35.7-47.0); Hemoglobin 9.3 GM/DL (12.0-16.0); Immature Granulocytes Absolute 0.69 #; Lymphocytes # 0.8 10*3/uL (1.4-4.0); Lymphocytes % 3.6 % (21.3-54.2); Mean Corpuscular HGB Conc 32.9 GM/DL (32-36); Mean Corpuscular Volume 89.3 FL (87-102); Mean Platelet Volume 11.3 FL (9.6-12.0); Monocytes % 5.3 % (1.7-12.7); Neutrophils % 87.3 % (38.7-73.9); Platelet Count 357 T/CUMM (130-400); Red Blood Count 3.17 MC/CUMM (3.8-5.5); Red Cell Distribution Width 16.8 % (9.3-17.3); White Blood Count 22.9 T/CUMM (4-12)
[2020-05-23 06:28] LABS: Albumin 0.9 G/DL (3.4-5.0); Bilirubin,Total 0.6 MG/DL (0.2-1.0); Calcium 7.1 MG/DL (8.5-10.1); Osmolality,Calculated 310.8 MOS/KG (273-304); Potassium 3.7 MMOL/L (3.5-5.1); Total Protein 4.3 G/DL (6.4-8.3)
[2020-05-23 06:40] LABS: Lymphocytes 3 % (20-55); Platelet Estimate Adequate; Segmented Neutrophils 95 % (50-85); Total Cells Counted 100
[2020-05-23 06:41] LABS: Hypochromasia 1+; Microcytosis 1+
[2020-05-23] MEDS: INSULIN LISPRO 100 UNIT/ML SUBCUT SCH ×4 (06:51→23:57)
[2020-05-23] MEDS: ESCITALOPRAM 10 MG TABLET PO SCH (08:43)
[2020-05-23] MEDS: FUROSEMIDE 20 MG/2 ML VIAL IV SCH ×2 (08:43→16:04)
[2020-05-23] MEDS: LEVOFLOXACIN INJ 500 MG in PREMIX 1 EACH IV SCH (08:43)
[2020-05-23] MEDS: ASPIRIN CHEW 81 MG TABLET PO SCH (08:43)
[2020-05-23] MEDS: POTASSIUM CHLORIDE RIDER 20 MEQ in PREMIX 1 EACH IV PRN (08:44)
[2020-05-23] MEDS ORDERED: AMIODARONE INJ 150 MG in DEXTROSE 5% 100 ML IV ONE (09:04)
[2020-05-23] MEDS: AMIODARONE INJ 450 MG in DEXTROSE 5% 241 ML IV SCH (10:40)
[2020-05-23] MEDS: DEXMEDETOMIDINE 400 MCG in SODIUM CHLORIDE 0.9% 96 ML IV PRN (11:20)
[2020-05-23] MEDS: ATORVASTATIN 40 MG TABLET PO SCH (20:38)
[2020-05-24] MEDS: SODIUM CHLORIDE 0.45% 1,000 ML IV SCH ×4 (01:16→20:31)
[2020-05-24] MEDS: AMIODARONE INJ 450 MG in DEXTROSE 5% 241 ML IV SCH ×2 (02:56→18:07)
[2020-05-24 03:51] LABS: Basophils # 0.1 10*3/uL (0.0-0.2); Basophils % 0.3 % (0.0-0.8); Eosinophils % 0.1 % (0.00-10.9); Hematocrit 26.5 VOL% (35.7-47.0); Hemoglobin 8.6 GM/DL (12.0-16.0); Immature Granulocytes % 3.8 %; Lymphocytes # 0.8 10*3/uL (1.4-4.0); Lymphocytes % 3.8 % (21.3-54.2); Mean Corpuscular HGB Conc 32.5 GM/DL (32-36); Mean Corpuscular Volume 91.4 FL (87-102); Mean Platelet Volume 10.9 FL (9.6-12.0); Monocytes % 5.3 % (1.7-12.7); Neutrophils % 86.7 % (38.7-73.9); Platelet Count 375 T/CUMM (130-400); Red Cell Distribution Width 16.7 % (9.3-17.3); White Blood Count 21.2 T/CUMM (4-12)
[2020-05-24 04:19] LABS: Albumin 0.8 G/DL (3.4-5.0); Bilirubin,Total 0.5 MG/DL (0.2-1.0); Osmolality,Calculated 313.6 MOS/KG (273-304); Potassium 3.6 MMOL/L (3.5-5.1); Total Protein 4.1 G/DL (6.4-8.3)
[2020-05-24 04:27] LABS: ABG Base Excess -3.4 MMOL/L (-2.5-2.5); ABG HCO3 21.5 MMOL/L (20-26); ABG Oxygen Saturation 98.8 % (95-100); ABG PH 7.422 (7.35-7.45); ABG TCO2 18.6 MMOL/L (23-27); Allen Test Positive; Pt O2 Delivery Device Ventilator
[2020-05-24] MEDS: POTASSIUM CHLORIDE RIDER 20 MEQ in PREMIX 1 EACH IV PRN (05:08)
[2020-05-24] MEDS: INSULIN LISPRO 100 UNIT/ML SUBCUT SCH ×4 (05:10→23:41)
[2020-05-24 05:17] LABS: Band Neutrophils 7 % (0-10); Hypochromasia 1+; Lymphocytes 4 % (20-55); Segmented Neutrophils 86 % (50-85); Total Cells Counted 100
[2020-05-24 05:18] LABS: Microcytosis 1+; Polychromasia Slight
[2020-05-24] MEDS ORDERED: CLINDAMYCIN INJ 900 MG in PREMIX 1 EACH IV ONE (07:35)
[2020-05-24] MEDS: FUROSEMIDE 20 MG/2 ML VIAL IV SCH ×2 (08:43→16:38)
[2020-05-24] MEDS ORDERED: ETOMIDATE 40 MG/20 ML VIAL IV ONE (09:05)
[2020-05-24] MEDS ORDERED: MIDAZOLAM 2 MG/2 ML VIAL ONE ×2 (09:05→10:26)
[2020-05-24] MEDS ORDERED: KETAMINE 500 MG/10 ML VIAL ONE (09:05)
[2020-05-24] MEDS ORDERED: ROCURONIUM 50 MG/5 ML VIAL IV ONE (09:05)
[2020-05-24] MEDS ORDERED: fentaNYL 100 MCG/2 ML VIAL ONE ×2 (09:06→09:07)
[2020-05-24] MEDS ORDERED: LIDOCAINE 2% 5 ML VIAL ONE (09:39)
[2020-05-24] MEDS ORDERED: DEXAMETHASONE 4 MG/1 ML VIAL ONE (09:40)
[2020-05-24] MEDS ORDERED: ONDANSETRON 4 MG/2 ML VIAL ONE (09:40)
[2020-05-24] MEDS ORDERED: PHENYLEPHRINE 1 MG/10 ML SYRINGE IV ONE ×2 (09:41→10:06)
[2020-05-24] MEDS ORDERED: SEVOFLURANE 1 UNIT/15 MINUTE INH ONE (10:27)
[2020-05-24] MEDS: ASPIRIN CHEW 81 MG TABLET PO SCH (10:51)
[2020-05-24] MEDS: ESCITALOPRAM 10 MG TABLET PO SCH (10:51)
[2020-05-24] MEDS ORDERED: AMINO ACIDS IV SCH (17:00)
[2020-05-24] MEDS ORDERED: DEXT IV SCH (17:00)
[2020-05-24] MEDS ORDERED: TRACE ELEMENTS IV SCH (17:00)
[2020-05-24] MEDS ORDERED: LYTES IV SCH (17:00)
[2020-05-24] MEDS ORDERED: DEXTROSE 10% 1,000 ML IV PRN (17:00)
[2020-05-24] MEDS: ATORVASTATIN 40 MG TABLET PO SCH (20:25)
[2020-05-25] MEDS: AMIODARONE INJ 450 MG in DEXTROSE 5% 241 ML IV SCH ×2 (01:59→16:40)
[2020-05-25 04:27] LABS: ABG Base Excess -3.1 MMOL/L (-2.5-2.5); ABG HCO3 21.8 MMOL/L (20-26); ABG Oxygen Saturation 97.6 % (95-100); ABG PCO2 34.3 MM HG (35-48); ABG PH 7.399 (7.35-7.45); ABG TCO2 19.4 MMOL/L (23-27); Allen Test Positive; Pt O2 Delivery Device Ventilator
[2020-05-25 04:27] LABS: Basophils # 0.1 10*3/uL (0.0-0.2); Basophils % 0.5 % (0.0-0.8); Eosinophils % 0.1 % (0.00-10.9); Hematocrit 25.1 VOL% (35.7-47.0); Hemoglobin 8.1 GM/DL (12.0-16.0); Immature Granulocytes % 4.1 %; Immature Granulocytes Absolute 0.85 #; Lymphocytes # 0.6 10*3/uL (1.4-4.0); Lymphocytes % 2.8 % (21.3-54.2); Mean Corpuscular HGB Conc 32.3 GM/DL (32-36); Mean Corpuscular Volume 91.9 FL (87-102); Mean Platelet Volume 11.1 FL (9.6-12.0); Monocytes % 4.5 % (1.7-12.7); Platelet Count 331 T/CUMM (130-400); Red Blood Count 2.73 MC/CUMM (3.8-5.5); Red Cell Distribution Width 17.1 % (9.3-17.3); White Blood Count 20.9 T/CUMM (4-12)
[2020-05-25 04:47] LABS: Alanine Aminotransferase 21 U/L (13-56); Albumin 0.9 G/DL (3.4-5.0); Alkaline Phosphatase 158 U/L (45-117); Aspartate Amino Transferase 33 U/L (0-37); Bilirubin,Total < 0.39 MG/DL (0.2-1.0); Blood Urea Nitrogen 72 MG/DL (7-18); Calcium 7.1 MG/DL (8.5-10.1); Carbon Dioxide 23 MMOL/L (21-32); Estimated Glom Filtration Rate 48 ML/MIN; Glucose 230 MG/DL (74-106); Osmolality,Calculated 313.8 MOS/KG (273-304); Potassium 3.7 MMOL/L (3.5-5.1); Sodium 144 MMOL/L (136-145); Total Protein 4.2 G/DL (6.4-8.3)
[2020-05-25 04:58] LABS: Band Neutrophils 4 % (0-10); Hypochromasia 1+; Lymphocytes 1 % (20-55); Microcytosis 1+; Polychromasia Slight; Segmented Neutrophils 93 % (50-85); Total Cells Counted 100
[2020-05-25 04:59] LABS: Target Cells Slight
[2020-05-25] MEDS: INSULIN LISPRO 100 UNIT/ML SUBCUT SCH ×3 (05:21→17:27)
[2020-05-25] MEDS: SODIUM CHLORIDE 0.45% 1,000 ML IV SCH ×2 (06:11→16:26)
[2020-05-25] MEDS: FUROSEMIDE 20 MG/2 ML VIAL IV SCH ×2 (08:22→16:28)
[2020-05-25] MEDS: LEVOFLOXACIN INJ 500 MG in PREMIX 1 EACH IV SCH (09:24)
[2020-05-25] MEDS: ASPIRIN CHEW 81 MG TABLET PO SCH (09:24)
[2020-05-25] MEDS: ESCITALOPRAM 10 MG TABLET PO SCH (09:24)
[2020-05-25] MEDS ORDERED: TRACE ELEMENTS IV SCH (17:00)
[2020-05-25] MEDS ORDERED: [UNRECOGNIZED DRUG - OTHER] IV SCH (17:00)
[2020-05-25] MEDS ORDERED: MULTIVITAMIN PEDIATRIC IV SCH (17:00)
[2020-05-25] MEDS: POTASSIUM CHLORIDE RIDER 20 MEQ in PREMIX 1 EACH IV PRN (17:32)
[2020-05-25] MEDS: ATORVASTATIN 40 MG TABLET PO SCH (21:21)
[2020-05-26] MEDS: INSULIN LISPRO 100 UNIT/ML SUBCUT SCH ×6 (00:22→23:34)
[2020-05-26] MEDS: SODIUM CHLORIDE 0.45% 1,000 ML IV SCH ×3 (02:31→22:31)
[2020-05-26 03:47] LABS: ABG Base Excess -2.7 MMOL/L (-2.5-2.5); ABG HCO3 22.2 MMOL/L (20-26); ABG Oxygen Saturation 98.7 % (95-100); ABG PH 7.418 (7.35-7.45); ABG TCO2 19.9 MMOL/L (23-27)
[2020-05-26 04:11] LABS: Basophils # 0.1 10*3/uL (0.0-0.2); Basophils % 0.4 % (0.0-0.8); Eosinophils % 0.2 % (0.00-10.9); Hematocrit 24.5 VOL% (35.7-47.0); Immature Granulocytes % 3.6 %; Immature Granulocytes Absolute 0.81 #; Lymphocytes # 0.6 10*3/uL (1.4-4.0); Lymphocytes % 2.7 % (21.3-54.2); Mean Corpuscular HGB Conc 32.7 GM/DL (32-36); Mean Corpuscular Volume 92.5 FL (87-102); Mean Platelet Volume 10.4 FL (9.6-12.0); Monocytes % 3.9 % (1.7-12.7); Neutrophils % 89.2 % (38.7-73.9); Platelet Count 313 T/CUMM (130-400); Red Blood Count 2.65 MC/CUMM (3.8-5.5); White Blood Count 22.7 T/CUMM (4-12)
[2020-05-26 04:35] LABS: Band Neutrophils 5 % (0-10); Hypochromasia Slight; Lymphocytes 1 % (20-55); Metamyelocytes 1 %; Platelet Estimate Normal; Segmented Neutrophils 90 % (50-85); Total Cells Counted 100
[2020-05-26 04:41] LABS: Calcium 6.8 MG/DL (8.5-10.1); Potassium 3.8 MMOL/L (3.5-5.1)
[2020-05-26] MEDS ORDERED: PHENYLEPHRINE 1 MG/10 ML SYRINGE IV ONE (06:33)
[2020-05-26] MEDS ORDERED: MIDAZOLAM 2 MG/2 ML VIAL ONE ×2 (06:33)
[2020-05-26] MEDS ORDERED: VECURONIUM 10 MG VIAL IV ONE (06:34)
[2020-05-26] MEDS ORDERED: fentaNYL 250 MCG/5 ML VIAL ONE (06:34)
[2020-05-26] MEDS ORDERED: SEVOFLURANE 1 UNIT/15 MINUTE INH ONE (08:23)
[2020-05-26] MEDS: ESCITALOPRAM 10 MG TABLET PO SCH (08:53)
[2020-05-26] MEDS: ASPIRIN CHEW 81 MG TABLET PO SCH (08:53)
[2020-05-26] MEDS: FUROSEMIDE 20 MG/2 ML VIAL IV SCH ×2 (08:53→16:30)
[2020-05-26] MEDS: POTASSIUM CHLORIDE RIDER 20 MEQ in PREMIX 1 EACH IV PRN (08:54)
[2020-05-26] MEDS: AMIODARONE INJ 450 MG in DEXTROSE 5% 241 ML IV SCH (08:54)
[2020-05-26] MEDS: HYDROmorphone 2 MG/1 ML VIAL IV PRN ×3 (10:20→20:33)
[2020-05-26] MEDS: MAGNESIUM SULF RIDER 2 GM in PREMIX 1 EACH IV PRN (10:24)
[2020-05-26] MEDS ORDERED: GLUCAGON 1 MG VIAL IM PRN (10:48)
[2020-05-26] MEDS ORDERED: DEXTROSE 50% 25 GM/50 ML VIAL IV PRN (10:48)
[2020-05-26] MEDS: INSULIN GLARGINE 100 UNIT/ML SUBCUT SCH (11:01)
[2020-05-26] MEDS: INSULIN REGULAR IV SCH (17:11)
[2020-05-26] MEDS: [UNRECOGNIZED DRUG - OTHER] IV SCH (17:11)
[2020-05-26] MEDS: TRACE ELEMENTS IV SCH (17:11)
[2020-05-26] MEDS: ATORVASTATIN 40 MG TABLET PO SCH (20:28)
[2020-05-27] MEDS: INSULIN LISPRO 100 UNIT/ML SUBCUT SCH ×6 (03:26→23:42)
[2020-05-27 04:26] LABS: ABG Base Excess -0.9 MMOL/L (-2.5-2.5); ABG HCO3 23.7 MMOL/L (20-26); ABG Oxygen Saturation 99.4 % (95-100); ABG PCO2 33.4 MM HG (35-48); ABG PH 7.443 (7.35-7.45); ABG TCO2 21.2 MMOL/L (23-27); Pt O2 Delivery Device Ventilator
[2020-05-27 04:30] LABS: Basophils # 0.1 10*3/uL (0.0-0.2); Basophils % 0.4 % (0.0-0.8); Eosinophils # 0.1 10*3/uL (0.0-0.87); Eosinophils % 0.5 % (0.00-10.9); Hematocrit 24.4 VOL% (35.7-47.0); Immature Granulocytes % 3.5 %; Immature Granulocytes Absolute 1.01 #; Lymphocytes # 0.8 10*3/uL (1.4-4.0); Lymphocytes % 2.8 % (21.3-54.2); Mean Corpuscular HGB Conc 32.8 GM/DL (32-36); Mean Corpuscular Volume 92.1 FL (87-102); Mean Platelet Volume 10.9 FL (9.6-12.0); Monocytes % 3.5 % (1.7-12.7); Neutrophils % 89.3 % (38.7-73.9); Platelet Count 296 T/CUMM (130-400); Red Blood Count 2.65 MC/CUMM (3.8-5.5); Red Cell Distribution Width 17.9 % (9.3-17.3); White Blood Count 28.9 T/CUMM (4-12)
[2020-05-27 04:49] LABS: Osmolality,Calculated 302.1 MOS/KG (273-304); Potassium 3.8 MMOL/L (3.5-5.1)
[2020-05-27 04:57] LABS: Band Neutrophils 3 % (0-10); Hypochromasia 1+; Lymphocytes 4 % (20-55); Microcytosis 1+; Ovalocytes Slight; Platelet Estimate Adequate; Segmented Neutrophils 87 % (50-85); Total Cells Counted 100
[2020-05-27] MEDS: HYDROmorphone 2 MG/1 ML VIAL IV PRN ×2 (07:50→11:20)
[2020-05-27] MEDS: ASPIRIN CHEW 81 MG TABLET PO SCH (08:37)
[2020-05-27] MEDS: FUROSEMIDE 20 MG/2 ML VIAL IV SCH ×2 (08:37→16:03)
[2020-05-27] MEDS: ESCITALOPRAM 10 MG TABLET PO SCH (08:37)
[2020-05-27] MEDS: INSULIN GLARGINE 100 UNIT/ML SUBCUT SCH (08:37)
[2020-05-27] MEDS: LEVOFLOXACIN INJ 500 MG in PREMIX 1 EACH IV SCH (08:38)
[2020-05-27] MEDS: SODIUM CHLORIDE 0.45% 1,000 ML IV SCH ×2 (10:16→22:54)
[2020-05-27] MEDS: POTASSIUM CHLORIDE RIDER 20 MEQ in PREMIX 1 EACH IV PRN (10:44)
[2020-05-27] MEDS: CEFEPIME 1,000 MG in SODIUM CHLORIDE 0.9% 100 ML IV SCH ×3 (11:13→21:13)
[2020-05-27] MEDS: TRACE ELEMENTS IV SCH (16:57)
[2020-05-27] MEDS: [UNRECOGNIZED DRUG - OTHER] IV SCH (16:57)
[2020-05-27] MEDS: INSULIN REGULAR IV SCH (16:57)
[2020-05-27] MEDS: ATORVASTATIN 40 MG TABLET PO SCH (20:00)
[2020-05-28] MEDS: HYDROmorphone 2 MG/1 ML VIAL IV PRN ×2 (02:25→16:14)
[2020-05-28] MEDS: INSULIN LISPRO 100 UNIT/ML SUBCUT SCH ×5 (04:51→20:18)
[2020-05-28 05:00] LABS: Basophils # 0.1 10*3/uL (0.0-0.2); Basophils % 0.2 % (0.0-0.8); Eosinophils # 0.1 10*3/uL (0.0-0.87); Eosinophils % 0.5 % (0.00-10.9); Hemoglobin 7.5 GM/DL (12.0-16.0); Immature Granulocytes % 3.3 %; Immature Granulocytes Absolute 0.88 #; Lymphocytes # 0.9 10*3/uL (1.4-4.0); Lymphocytes % 3.3 % (21.3-54.2); Mean Corpuscular HGB Conc 31.3 GM/DL (32-36); Mean Corpuscular Volume 92.7 FL (87-102); Mean Platelet Volume 10.7 FL (9.6-12.0); Monocytes % 4.7 % (1.7-12.7); Platelet Count 276 T/CUMM (130-400); Red Blood Count 2.59 MC/CUMM (3.8-5.5); Red Cell Distribution Width 18.1 % (9.3-17.3); White Blood Count 26.6 T/CUMM (4-12)
[2020-05-28] MEDS: CEFEPIME 1,000 MG in SODIUM CHLORIDE 0.9% 100 ML IV SCH ×2 (05:04→11:21)
[2020-05-28 05:18] LABS: Calcium 6.9 MG/DL (8.5-10.1); Osmolality,Calculated 301.1 MOS/KG (273-304); Potassium 4.2 MMOL/L (3.5-5.1)
[2020-05-28 05:23] LABS: Band Neutrophils 3 % (0-10); Hypochromasia 2+; Lymphocytes 1 % (20-55); Microcytosis 1+; Platelet Estimate Adequate; Segmented Neutrophils 93 % (50-85); Total Cells Counted 100
[2020-05-28 05:25] LABS: Allen Test Positive; Pt O2 Delivery Device Ventilator
[2020-05-28 05:26] LABS: ABG Base Excess -1.1 MMOL/L (-2.5-2.5); ABG HCO3 22.9 MMOL/L (20-26); ABG Oxygen Saturation 98.1 % (95-100); ABG PCO2 34.6 MM HG (35-48); ABG PH 7.438 (7.35-7.45); ABG PO2 122.3 MM HG (80-95); ABG TCO2 23.9 MMOL/L (23-27)
[2020-05-28] MEDS: SODIUM CHLORIDE 0.45% 1,000 ML IV SCH ×2 (09:12→17:06)
[2020-05-28] MEDS: FUROSEMIDE 20 MG/2 ML VIAL IV SCH ×2 (09:30→17:04)
[2020-05-28] MEDS: INSULIN GLARGINE 100 UNIT/ML SUBCUT SCH (09:30)
[2020-05-28] MEDS: ASPIRIN CHEW 81 MG TABLET PO SCH (09:30)
[2020-05-28] MEDS: ESCITALOPRAM 10 MG TABLET PO SCH (09:30)
[2020-05-28] MEDS: INSULIN REGULAR IV SCH (17:04)
[2020-05-28] MEDS: MULTIVITAMIN PEDIATRIC IV SCH (17:04)
[2020-05-28] MEDS: TRACE ELEMENTS IV SCH (17:04)
[2020-05-28] MEDS: [UNRECOGNIZED DRUG - OTHER] IV SCH (17:04)
[2020-05-28] MEDS: ATORVASTATIN 40 MG TABLET PO SCH (20:18)
[2020-05-29] MEDS: INSULIN LISPRO 100 UNIT/ML SUBCUT SCH ×6 (00:48→20:33)
[2020-05-29 04:10] LABS: Basophils # 0.1 10*3/uL (0.0-0.2); Basophils % 0.2 % (0.0-0.8); Eosinophils # 0.2 10*3/uL (0.0-0.87); Eosinophils % 0.8 % (0.00-10.9); Hematocrit 22.3 VOL% (35.7-47.0); Hemoglobin 7.2 GM/DL (12.0-16.0); Immature Granulocytes % 3.6 %; Immature Granulocytes Absolute 0.75 #; Lymphocytes % 4.6 % (21.3-54.2); Mean Corpuscular HGB Conc 32.3 GM/DL (32-36); Mean Corpuscular Volume 91.4 FL (87-102); Mean Platelet Volume 11.4 FL (9.6-12.0); Monocytes % 6.1 % (1.7-12.7); Neutrophils % 84.7 % (38.7-73.9); Platelet Count 261 T/CUMM (130-400); Red Blood Count 2.44 MC/CUMM (3.8-5.5); Red Cell Distribution Width 18.2 % (9.3-17.3); White Blood Count 20.7 T/CUMM (4-12)
[2020-05-29] MEDS: SODIUM CHLORIDE 0.45% 1,000 ML IV SCH (04:19)
[2020-05-29 04:31] LABS: Band Neutrophils 7 % (0-10); Hypochromasia 2+; Lymphocytes 5 % (20-55); Microcytosis 1+; Platelet Estimate Adequate; Segmented Neutrophils 83 % (50-85); Total Cells Counted 100
[2020-05-29 04:39] LABS: ABG Base Excess -1.4 MMOL/L (-2.5-2.5); ABG HCO3 21.4 MMOL/L (20-26); ABG Oxygen Saturation 97.7 % (95-100); ABG PCO2 28.3 MM HG (35-48); ABG PH 7.497 (7.35-7.45); ABG PO2 105.8 MM HG (80-95); ABG TCO2 22.3 MMOL/L (23-27)
[2020-05-29 04:40] LABS: Allen Test Positive; Pt O2 Delivery Device Ventilator
[2020-05-29 04:47] LABS: Calcium 6.8 MG/DL (8.5-10.1); Osmolality,Calculated 299.3 MOS/KG (273-304); Potassium 4.1 MMOL/L (3.5-5.1)
[2020-05-29] MEDS: FUROSEMIDE 20 MG/2 ML VIAL IV SCH ×2 (08:50→16:30)
[2020-05-29] MEDS: ESCITALOPRAM 10 MG TABLET PO SCH (09:04)
[2020-05-29] MEDS: ASPIRIN CHEW 81 MG TABLET PO SCH (09:04)
[2020-05-29] MEDS: INSULIN GLARGINE 100 UNIT/ML SUBCUT SCH (09:04)
[2020-05-29] MEDS: SODIUM HYPOCHLORITE 0.25% IRRIG 473 ML BOTTLE TOP PRN (14:45)
[2020-05-29] MEDS: INSULIN REGULAR IV SCH (16:25)
[2020-05-29] MEDS: [UNRECOGNIZED DRUG - OTHER] IV SCH (16:25)
[2020-05-29] MEDS: TRACE ELEMENTS IV SCH (16:25)
[2020-05-29] MEDS: ATORVASTATIN 40 MG TABLET PO SCH (20:33)
[2020-05-30] MEDS: INSULIN LISPRO 100 UNIT/ML SUBCUT SCH ×6 (00:10→20:59)
[2020-05-30 04:39] LABS: ABG Base Excess 3.3 MMOL/L (-2.5-2.5); ABG HCO3 27.4 MMOL/L (20-26); ABG Oxygen Saturation 99.2 % (95-100); ABG TCO2 24.4 MMOL/L (23-27); Allen Test Positive; Pt O2 Delivery Device Ventilator
[2020-05-30] MEDS: INSULIN GLARGINE 100 UNIT/ML SUBCUT SCH (08:32)
[2020-05-30] MEDS: ASPIRIN CHEW 81 MG TABLET PO SCH (08:33)
[2020-05-30] MEDS: ESCITALOPRAM 10 MG TABLET PO SCH (08:33)
[2020-05-30] MEDS: FUROSEMIDE 20 MG/2 ML VIAL IV SCH ×2 (08:33→16:45)
[2020-05-30] MEDS: HYDROmorphone 2 MG/1 ML VIAL IV PRN (14:06)
[2020-05-30] MEDS: INSULIN REGULAR IV SCH (16:47)
[2020-05-30] MEDS: TRACE ELEMENTS IV SCH (16:47)
[2020-05-30] MEDS: MULTIVITAMIN PEDIATRIC IV SCH (16:47)
[2020-05-30] MEDS: [UNRECOGNIZED DRUG - OTHER] IV SCH (16:47)
[2020-05-30] MEDS: ATORVASTATIN 40 MG TABLET PO SCH (20:59)
[2020-05-31] MEDS: INSULIN LISPRO 100 UNIT/ML SUBCUT SCH ×7 (04:25→23:44)
[2020-05-31 05:23] LABS: Basophils % 0.2 % (0.0-0.8); Eosinophils # 0.2 10*3/uL (0.0-0.87); Eosinophils % 0.8 % (0.00-10.9); Hematocrit 20.1 VOL% (35.7-47.0); Hemoglobin 6.6 GM/DL (12.0-16.0); Immature Granulocytes % 3.1 %; Immature Granulocytes Absolute 0.63 #; Lymphocytes # 1.1 10*3/uL (1.4-4.0); Lymphocytes % 5.5 % (21.3-54.2); Mean Corpuscular HGB Conc 32.8 GM/DL (32-36); Mean Corpuscular Volume 91.4 FL (87-102); Mean Platelet Volume 11.2 FL (9.6-12.0); Monocytes % 6.3 % (1.7-12.7); NRBC # 0.02 10*3/uL; Neutrophils % 84.1 % (38.7-73.9); Platelet Count 231 T/CUMM (130-400); Red Cell Distribution Width 18.7 % (9.3-17.3); White Blood Count 20.6 T/CUMM (4-12)
[2020-05-31 05:42] LABS: Osmolality,Calculated 313.7 MOS/KG (273-304); Potassium 3.7 MMOL/L (3.5-5.1)
[2020-05-31 05:44] LABS: Band Neutrophils 2 % (0-10); Hypochromasia 2+; Lymphocytes 2 % (20-55); Microcytosis 1+; Nucleated Red Blood Cells 1 (0-5); Platelet Estimate Adequate; Segmented Neutrophils 92 % (50-85); Total Cells Counted 100
[2020-05-31] MEDS: FUROSEMIDE 20 MG/2 ML VIAL IV SCH ×2 (08:30→16:55)
[2020-05-31] MEDS: INSULIN GLARGINE 100 UNIT/ML SUBCUT SCH (08:34)
[2020-05-31] MEDS: ASPIRIN CHEW 81 MG TABLET PO SCH (09:24)
[2020-05-31] MEDS: ESCITALOPRAM 10 MG TABLET PO SCH (09:24)
[2020-05-31] MEDS ORDERED: SODIUM CHLORIDE 0.9% 1,000 ML IV PRN (11:01)
[2020-05-31] MEDS ORDERED: fentaNYL 100 MCG/2 ML VIAL ONE (12:18)
[2020-05-31] MEDS ORDERED: LIDOCAINE 2% 5 ML VIAL ONE (12:18)
[2020-05-31] MEDS ORDERED: ROCURONIUM 50 MG/5 ML VIAL IV ONE (12:18)
[2020-05-31] MEDS ORDERED: MIDAZOLAM 2 MG/2 ML VIAL ONE (12:18)
[2020-05-31] MEDS ORDERED: PHENYLEPHRINE 1 MG/10 ML SYRINGE IV ONE (12:19)
[2020-05-31] MEDS ORDERED: ETOMIDATE 40 MG/20 ML VIAL IV ONE ×2 (12:19→14:08)
[2020-05-31] MEDS ORDERED: ePHEDrine 50 MG/ML VIAL ONE (12:19)
[2020-05-31] MEDS ORDERED: CHLORHEXIDINE 0.12% ORAL RINSE 60 ML BOTTLE SWISH/SPIT ONE (13:15)
[2020-05-31] MEDS ORDERED: PHENYLEPHRINE 10 MG/1 ML VIAL IV ONE (13:32)
[2020-05-31] MEDS ORDERED: SEVOFLURANE 1 UNIT/15 MINUTE INH ONE (14:08)
[2020-05-31] MEDS: ELECTROLYTE IV SCH (17:04)
[2020-05-31] MEDS: TRACE ELEMENTS IV SCH (17:04)
[2020-05-31] MEDS: INSULIN REGULAR IV SCH (17:04)
[2020-05-31] MEDS: [UNRECOGNIZED DRUG - OTHER] IV SCH (17:04)
[2020-05-31] MEDS: ATORVASTATIN 40 MG TABLET PO SCH (21:18)
[2020-06-01] MEDS: INSULIN LISPRO 100 UNIT/ML SUBCUT SCH ×5 (04:35→21:08)
[2020-06-01 05:55] LABS: Basophils # 0.1 10*3/uL (0.0-0.2); Basophils % 0.3 % (0.0-0.8); Eosinophils # 0.1 10*3/uL (0.0-0.87); Eosinophils % 0.3 % (0.00-10.9); Hematocrit 24.5 VOL% (35.7-47.0); Hemoglobin 8.2 GM/DL (12.0-16.0); Immature Granulocytes % 2.1 %; Lymphocytes # 1.2 10*3/uL (1.4-4.0); Lymphocytes % 5.9 % (21.3-54.2); Mean Corpuscular HGB Conc 33.5 GM/DL (32-36); Mean Corpuscular Volume 90.4 FL (87-102); Mean Platelet Volume 11.8 FL (9.6-12.0); Monocytes % 4.3 % (1.7-12.7); NRBC # 0.02 10*3/uL; Neutrophils % 87.1 % (38.7-73.9); Platelet Count 217 T/CUMM (130-400); Red Blood Count 2.71 MC/CUMM (3.8-5.5); Red Cell Distribution Width 17.7 % (9.3-17.3); White Blood Count 19.4 T/CUMM (4-12)
[2020-06-01 06:15] LABS: Calcium 7.1 MG/DL (8.5-10.1); Osmolality,Calculated 322.4 MOS/KG (273-304); Potassium 3.6 MMOL/L (3.5-5.1)
[2020-06-01 07:24] LABS: Band Neutrophils 8 % (0-10); Hypochromasia 1+; Lymphocytes 1 % (20-55); Myelocytes 1 %; Nucleated Red Blood Cells 2 (0-5); Segmented Neutrophils 85 % (50-85); Total Cells Counted 100
[2020-06-01 07:25] LABS: Microcytosis 1+; Platelet Estimate Normal; Target Cells Slight
[2020-06-01] MEDS: FUROSEMIDE 20 MG/2 ML VIAL IV SCH ×2 (09:00→16:54)
[2020-06-01] MEDS: ASPIRIN CHEW 81 MG TABLET PO SCH (09:02)
[2020-06-01] MEDS: INSULIN GLARGINE 100 UNIT/ML SUBCUT SCH ×2 (09:02→12:36)
[2020-06-01] MEDS: carvediloL 6.25 MG TABLET PO SCH ×2 (09:02→21:08)
[2020-06-01] MEDS: ESCITALOPRAM 10 MG TABLET PO SCH (09:02)
[2020-06-01] MEDS: SODIUM HYPOCHLORITE 0.25% IRRIG 473 ML BOTTLE TOP PRN (10:00)
[2020-06-01] MEDS ORDERED: SODIUM CHLORIDE 0.9% 1,000 ML IV ONE (13:13)
[2020-06-01] MEDS: FAT EMULSION 20% 250 ML IV SCH (13:43)
[2020-06-01] MEDS: NOREPINEPHRINE 8 MG in SODIUM CHLORIDE 0.9% 242 ML IV PRN (15:58)
[2020-06-01] MEDS ORDERED: ELECTROLYTE IV SCH (17:00)
[2020-06-01] MEDS ORDERED: TRACE ELEMENTS IV SCH (17:00)
[2020-06-01] MEDS ORDERED: INSULIN REGULAR IV SCH (17:00)
[2020-06-01] MEDS ORDERED: [UNRECOGNIZED DRUG - OTHER] IV SCH (17:00)
[2020-06-01] MEDS: ATORVASTATIN 40 MG TABLET PO SCH (21:08)
[2020-06-02] MEDS: INSULIN LISPRO 100 UNIT/ML SUBCUT SCH ×7 (00:08→23:22)
[2020-06-02 03:23] LABS: Basophils # 0.1 10*3/uL (0.0-0.2); Basophils % 0.4 % (0.0-0.8); Eosinophils # 0.1 10*3/uL (0.0-0.87); Eosinophils % 0.7 % (0.00-10.9); Hematocrit 22.3 VOL% (35.7-47.0); Hemoglobin 7.3 GM/DL (12.0-16.0); Immature Granulocytes % 2.3 %; Immature Granulocytes Absolute 0.44 #; Lymphocytes # 1.3 10*3/uL (1.4-4.0); Lymphocytes % 6.9 % (21.3-54.2); Mean Corpuscular HGB Conc 32.7 GM/DL (32-36); Mean Corpuscular Volume 93.7 FL (87-102); Mean Platelet Volume 12.1 FL (9.6-12.0); Monocytes % 3.9 % (1.7-12.7); NRBC # 0.03 10*3/uL; Neutrophils % 85.8 % (38.7-73.9); Platelet Count 181 T/CUMM (130-400); Red Blood Count 2.38 MC/CUMM (3.8-5.5); Red Cell Distribution Width 18.1 % (9.3-17.3); White Blood Count 19.5 T/CUMM (4-12)
[2020-06-02 03:37] LABS: Albumin 0.6 G/DL (3.4-5.0); Bilirubin,Direct 0.18 MG/DL (0.0-0.20); Bilirubin,Indirect 0.2 MG/DL (0.0-1.0); Bilirubin,Total 0.4 MG/DL (0.2-1.0); Calcium 6.8 MG/DL (8.5-10.1); Osmolality,Calculated 329.4 MOS/KG (273-304); Potassium 3.8 MMOL/L (3.5-5.1)
[2020-06-02 04:30] LABS: ABG Base Excess 4.8 MMOL/L (-2.5-2.5); ABG HCO3 28.7 MMOL/L (20-26); ABG Oxygen Saturation 99.5 % (95-100); ABG PCO2 26.7 MM HG (35-48); ABG TCO2 24.1 MMOL/L (23-27); Allen Test Positive; Pt O2 Delivery Device Ventilator
[2020-06-02 04:45] LABS: ABG PH 7.598 (7.35-7.45)
[2020-06-02] MEDS: POTASSIUM CHLORIDE RIDER 20 MEQ in PREMIX 1 EACH IV PRN (05:21)
[2020-06-02 07:22] LABS: Anisocytosis 1+; Band Neutrophils 8 % (0-10); Lymphocytes 4 % (20-55); Macrocytosis 1+; Metamyelocytes 2 %; Platelet Estimate Normal; Polychromasia Few; Segmented Neutrophils 83 % (50-85); Total Cells Counted 100
[2020-06-02] MEDS ORDERED: SODIUM CHLORIDE 0.9% 1,000 ML IV PRN (07:24)
[2020-06-02 08:12] LABS: ABG Base Excess 3.8 MMOL/L (-2.5-2.5); ABG HCO3 26.2 MMOL/L (20-26); ABG Oxygen Saturation 97.7 % (95-100); ABG PCO2 29.8 MM HG (35-48); ABG PH 7.562 (7.35-7.45); ABG PO2 123.8 MM HG (80-95); ABG TCO2 27.1 MMOL/L (23-27); Allen Test Positive; Pt O2 Delivery Device Ventilator
[2020-06-02] MEDS: ASPIRIN CHEW 81 MG TABLET PO SCH (08:57)
[2020-06-02] MEDS: FUROSEMIDE 20 MG/2 ML VIAL IV SCH (08:57)
[2020-06-02] MEDS: ESCITALOPRAM 10 MG TABLET PO SCH (08:58)
[2020-06-02] MEDS: INSULIN GLARGINE 100 UNIT/ML SUBCUT SCH (08:58)
[2020-06-02] MEDS: carvediloL 6.25 MG TABLET PO SCH ×2 (08:58→21:00)
[2020-06-02] MEDS ORDERED: ALBUMIN 25% 25 GM in PREMIX 1 EACH IV ONE (09:07)
[2020-06-02] MEDS: NOREPINEPHRINE 8 MG in SODIUM CHLORIDE 0.9% 242 ML IV PRN (09:39)
[2020-06-02] MEDS: SODIUM HYPOCHLORITE 0.25% IRRIG 473 ML BOTTLE TOP PRN (10:10)
[2020-06-02 11:28] LABS: ABG Base Excess 4.2 MMOL/L (-2.5-2.5); ABG HCO3 28.2 MMOL/L (20-26); ABG Oxygen Saturation 99.9 % (95-100); ABG PCO2 31.4 MM HG (35-48); ABG PH 7.538 (7.35-7.45); Allen Test Positive; Pt O2 Delivery Device Ventilator
[2020-06-02] MEDS: METOCLOPRAMIDE 10 MG/2 ML VIAL IV SCH ×3 (12:00→23:22)
[2020-06-02] MEDS: ACETAMINOPHEN 325 MG/10.15 ML UDCUP PO PRN ×2 (12:20→22:54)
[2020-06-02] MEDS: ALBUMIN 25% 12.5 GM in PREMIX 1 EACH IV SCH ×2 (14:01→21:01)
[2020-06-02] MEDS: VANCOMYCIN INJ 1,750 MG in SODIUM CHLORIDE 0.9% 500 ML IV SCH (14:45)
[2020-06-02] MEDS: TRACE ELEMENTS IV SCH (17:54)
[2020-06-02] MEDS: [UNRECOGNIZED DRUG - OTHER] IV SCH (17:54)
[2020-06-02] MEDS: ELECTROLYTE IV SCH (17:54)
[2020-06-02] MEDS: INSULIN REGULAR IV SCH (17:54)
[2020-06-02] MEDS: ATORVASTATIN 40 MG TABLET PO SCH (21:01)
[2020-06-03 00:44] LABS: Hemoglobin 5.3 GM/DL (12.0-16.0)
[2020-06-03] MEDS ORDERED: LACTATED RINGERS 500 ML IV ONE (00:50)
[2020-06-03 00:54] LABS: INR 1.4; PT Patient Result 15.2 SECS (9.8-11.9); Partial Thromboplastin Time 41.8 SECS (23.9-33.8)
[2020-06-03] MEDS: HYDROmorphone 2 MG/1 ML VIAL IV PRN ×3 (01:22→20:10)
[2020-06-03] MEDS: NOREPINEPHRINE 8 MG in SODIUM CHLORIDE 0.9% 242 ML IV PRN ×2 (02:52→10:35)
[2020-06-03 03:49] LABS: ABG Base Excess -3.7 MMOL/L (-2.5-2.5); ABG HCO3 18.9 MMOL/L (20-26); ABG PCO2 28.6 MM HG (35-48); ABG PH 7.439 (7.35-7.45); ABG PO2 150.6 MM HG (80-95); ABG TCO2 19.8 MMOL/L (23-27); Allen Test Positive; Pt O2 Delivery Device Ventilator
[2020-06-03] MEDS: INSULIN LISPRO 100 UNIT/ML SUBCUT SCH ×5 (05:07→20:03)
[2020-06-03] MEDS: METOCLOPRAMIDE 10 MG/2 ML VIAL IV SCH ×4 (05:17→22:28)
[2020-06-03] MEDS: ALBUMIN 25% 12.5 GM in PREMIX 1 EACH IV SCH ×3 (05:17→21:07)
[2020-06-03] MEDS ORDERED: MIDAZOLAM 2 MG/2 ML VIAL ONE (06:42)
[2020-06-03] MEDS ORDERED: ROCURONIUM 50 MG/5 ML VIAL IV ONE ×2 (06:43→08:00)
[2020-06-03 07:08] LABS: Basophils % 0.2 % (0.0-0.8); Eosinophils % 0.1 % (0.00-10.9); Hematocrit 21.6 VOL% (35.7-47.0); Immature Granulocytes % 2.4 %; Immature Granulocytes Absolute 0.51 #; Lymphocytes # 1.2 10*3/uL (1.4-4.0); Lymphocytes % 5.6 % (21.3-54.2); Mean Corpuscular HGB Conc 33.3 GM/DL (32-36); Mean Corpuscular Volume 93.9 FL (87-102); Mean Platelet Volume 11.8 FL (9.6-12.0); Monocytes % 3.6 % (1.7-12.7); NRBC # 0.04 10*3/uL; Neutrophils % 88.1 % (38.7-73.9)
[2020-06-03 07:13] LABS: Hemoglobin 7.2 GM/DL (12.0-16.0); Platelet Count 94 T/CUMM (130-400)
[2020-06-03 07:27] LABS: Calcium 7.1 MG/DL (8.5-10.1); Osmolality,Calculated 343.1 MOS/KG (273-304); Potassium 3.6 MMOL/L (3.5-5.1)
[2020-06-03 07:49] LABS: Band Neutrophils 37 % (0-10); Lymphocytes 2 % (20-55); Metamyelocytes 2 %; Platelet Estimate Decreased; Segmented Neutrophils 54 % (50-85); Total Cells Counted 100
[2020-06-03 07:50] LABS: Anisocytosis 2+; Giant Platelets Few; Polychromasia Slight; Toxic Granulation 1+
[2020-06-03 07:51] LABS: Burr Cells Few; Macrocytosis Slight
[2020-06-03] MEDS ORDERED: SEVOFLURANE 1 UNIT/15 MINUTE INH ONE ×6 (08:05→09:18)
[2020-06-03] MEDS: ASPIRIN CHEW 81 MG TABLET PO SCH (08:21)
[2020-06-03] MEDS: carvediloL 6.25 MG TABLET PO SCH ×2 (08:21→20:42)
[2020-06-03] MEDS: ESCITALOPRAM 10 MG TABLET PO SCH (08:21)
[2020-06-03] MEDS: FUROSEMIDE 20 MG/2 ML VIAL IV SCH (10:00)
[2020-06-03] MEDS: FAT EMULSION 20% 250 ML IV SCH (10:00)
[2020-06-03] MEDS: INSULIN GLARGINE 100 UNIT/ML SUBCUT SCH (10:27)
[2020-06-03] MEDS: PANTOPRAZOLE 40 MG VIAL IV SCH ×2 (10:32→20:04)
[2020-06-03] MEDS: VANCOMYCIN INJ 1,750 MG in SODIUM CHLORIDE 0.9% 500 ML IV SCH (10:32)
[2020-06-03 11:05] LABS: Bacteria,Urine Occasional /HPF (Few); Bilirubin,Urine Negative (Negative); Blood, Urine Moderate mg/dL (Negative); Glucose,Urine (UA) Negative (Negative); Hyaline Casts,Urine 39 /LPF (0-3); Ketones,Urine Negative (Negative); Mucus,Urine Occasional /LPF (Occasional); Nitrite,Urine Negative (Negative); Protein,Urine Negative; RBC,Urine 3 /HPF (0-4); Squamous Epithelial Cell,Urine Occasional /HPF (0-10); Urine Appearance Slightly Hazy (Clear); Urine Color Yellow (Yellow); Urine Specific Gravity 1.014 (1.001-1.035); Urine Urobilinogen < 2.0 EU/DL (0.2-1.0); WBC,Urine 2 /HPF (0-6)
[2020-06-03] MEDS: metroNIDAZOLE INJ 500 MG in PREMIX 1 EACH IV SCH ×2 (11:25→20:03)
[2020-06-03] MEDS: SODIUM CHLORIDE 23.4% CONC INJ 38.5 MEQ in STERILE WATER INJ 1,000 ML IV SCH (12:19)
[2020-06-03] MEDS: CEFEPIME 1,000 MG in SODIUM CHLORIDE 0.9% 100 ML IV SCH ×3 (12:27→22:28)
[2020-06-03 15:58] LABS: Hematocrit 27.5 VOL% (35.7-47.0)
[2020-06-03 15:59] LABS: Hemoglobin 9.6 GM/DL (12.0-16.0)
[2020-06-03] MEDS: ELECTROLYTE IV SCH (16:46)
[2020-06-03] MEDS: [UNRECOGNIZED DRUG - OTHER] IV SCH (16:46)
[2020-06-03] MEDS: TRACE ELEMENTS IV SCH (16:46)
[2020-06-03] MEDS: INSULIN REGULAR IV SCH (16:46)
[2020-06-03] MEDS ORDERED: CIPROFLOXACIN 500 MG TABLET ONE ×2 (18:26→18:27)
[2020-06-03] MEDS: ATORVASTATIN 40 MG TABLET PO SCH (20:42)
[2020-06-03 23:02] LABS: Hematocrit 25.3 VOL% (35.7-47.0)
[2020-06-04] MEDS: INSULIN LISPRO 100 UNIT/ML SUBCUT SCH ×7 (00:03→23:50)
[2020-06-04] MEDS: VANCOMYCIN INJ 1,750 MG in SODIUM CHLORIDE 0.9% 500 ML IV SCH ×2 (02:02→21:13)
[2020-06-04 04:21] LABS: Basophils % 0.2 % (0.0-0.8); Eosinophils % 0.3 % (0.00-10.9); Hematocrit 22.5 VOL% (35.7-47.0); Hemoglobin 8.5 GM/DL (12.0-16.0); Immature Granulocytes % 1.4 %; Immature Granulocytes Absolute 0.18 #; Lymphocytes # 0.8 10*3/uL (1.4-4.0); Lymphocytes % 6.1 % (21.3-54.2); Mean Corpuscular HGB Conc 37.8 GM/DL (32-36); Mean Corpuscular Volume 97.8 FL (87-102); Mean Platelet Volume 12.2 FL (9.6-12.0); Monocytes % 3.4 % (1.7-12.7); Neutrophils % 88.6 % (38.7-73.9); Platelet Count 71 T/CUMM (130-400); Red Cell Distribution Width 17.4 % (9.3-17.3); White Blood Count 12.6 T/CUMM (4-12)
[2020-06-04 04:22] LABS: ABG Base Excess -0.6 MMOL/L (-2.5-2.5); ABG HCO3 22.9 MMOL/L (20-26); ABG Oxygen Saturation 97.8 % (95-100); ABG PCO2 32.8 MM HG (35-48); ABG PH 7.461 (7.35-7.45); ABG PO2 123.4 MM HG (80-95); ABG TCO2 23.9 MMOL/L (23-27); Allen Test Positive; Pt O2 Delivery Device Ventilator
[2020-06-04 04:38] LABS: Calcium 7.1 MG/DL (8.5-10.1); Osmolality,Calculated 343.9 MOS/KG (273-304); Potassium 3.5 MMOL/L (3.5-5.1)
[2020-06-04 04:41] LABS: Albumin 1.5 G/DL (3.4-5.0); Bilirubin,Direct 0.75 MG/DL (0.0-0.20); Bilirubin,Indirect 0.9 MG/DL (0.0-1.0); Bilirubin,Total 1.6 MG/DL (0.2-1.0); Calcium 7.1 MG/DL (8.5-10.1); Osmolality,Calculated 342.9 MOS/KG (273-304); Potassium 3.4 MMOL/L (3.5-5.1); Total Protein 3.7 G/DL (6.4-8.3)
[2020-06-04] MEDS: metroNIDAZOLE INJ 500 MG in PREMIX 1 EACH IV SCH ×3 (05:18→21:11)
[2020-06-04] MEDS: ALBUMIN 25% 12.5 GM in PREMIX 1 EACH IV SCH ×3 (05:19→21:11)
[2020-06-04] MEDS: METOCLOPRAMIDE 10 MG/2 ML VIAL IV SCH ×4 (05:19→23:50)
[2020-06-04] MEDS: CEFEPIME 1,000 MG in SODIUM CHLORIDE 0.9% 100 ML IV SCH ×4 (05:19→23:50)
[2020-06-04 06:34] LABS: Anisocytosis Slight; Band Neutrophils 8 % (0-10); Lymphocytes 4 % (20-55); Nucleated Red Blood Cells 1 (0-5); Polychromasia Few; Segmented Neutrophils 82 % (50-85); Total Cells Counted 100
[2020-06-04 06:35] LABS: Macrocytosis Slight; Reactive Lymphocytes Few
[2020-06-04] MEDS: INSULIN GLARGINE 100 UNIT/ML SUBCUT SCH (08:00)
[2020-06-04] MEDS: FUROSEMIDE 20 MG/2 ML VIAL IV SCH (08:00)
[2020-06-04] MEDS: PANTOPRAZOLE 40 MG VIAL IV SCH ×2 (08:00→21:11)
[2020-06-04] MEDS: ESCITALOPRAM 10 MG TABLET PO SCH (09:00)
[2020-06-04] MEDS: carvediloL 6.25 MG TABLET PO SCH ×2 (09:00→21:00)
[2020-06-04 11:44] LABS: ABG Base Excess -0.8 MMOL/L (-2.5-2.5); ABG HCO3 23.7 MMOL/L (20-26); ABG Oxygen Saturation 99.2 % (95-100); ABG PCO2 31.7 MM HG (35-48); ABG PH 7.459 (7.35-7.45); ABG TCO2 20.6 MMOL/L (23-27); Allen Test Positive; Pt O2 Delivery Device Ventilator
[2020-06-04] MEDS: SODIUM CHLORIDE 23.4% CONC INJ 38.5 MEQ in STERILE WATER INJ 1,000 ML IV SCH (13:40)
[2020-06-04] MEDS ORDERED: ELECTROLYTE IV SCH (17:00)
[2020-06-04] MEDS ORDERED: INSULIN REGULAR IV SCH (17:00)
[2020-06-04] MEDS ORDERED: TRACE ELEMENTS IV SCH (17:00)
[2020-06-04] MEDS ORDERED: [UNRECOGNIZED DRUG - OTHER] IV SCH (17:00)
[2020-06-04] MEDS: ATORVASTATIN 40 MG TABLET PO SCH (21:00)
[2020-06-05 03:39] LABS: ABG Base Excess -2.1 MMOL/L (-2.5-2.5); ABG HCO3 22.7 MMOL/L (20-26); ABG Oxygen Saturation 99.8 % (95-100); ABG PH 7.446 (7.35-7.45); ABG TCO2 19.8 MMOL/L (23-27)
[2020-06-05] MEDS: metroNIDAZOLE INJ 500 MG in PREMIX 1 EACH IV SCH ×3 (04:28→20:40)
[2020-06-05] MEDS: INSULIN LISPRO 100 UNIT/ML SUBCUT SCH ×4 (04:28→18:00)
[2020-06-05] MEDS: METOCLOPRAMIDE 10 MG/2 ML VIAL IV SCH ×4 (04:28→23:48)
[2020-06-05] MEDS: CEFEPIME 1,000 MG in SODIUM CHLORIDE 0.9% 100 ML IV SCH ×4 (04:30→23:46)
[2020-06-05] MEDS: ALBUMIN 25% 12.5 GM in PREMIX 1 EACH IV SCH ×3 (05:39→22:34)
[2020-06-05 05:50] LABS: Albumin 1.7 G/DL (3.4-5.0); Bilirubin,Total 1.9 MG/DL (0.2-1.0); Calcium 7.3 MG/DL (8.5-10.1); Osmolality,Calculated 352.3 MOS/KG (273-304); Potassium 2.9 MMOL/L (3.5-5.1)
[2020-06-05 06:33] LABS: Basophils % 0.2 % (0.0-0.8); Eosinophils % 0.4 % (0.00-10.9); Hematocrit 22.2 VOL% (35.7-47.0); Hemoglobin 8.3 GM/DL (12.0-16.0); Immature Granulocytes % 1.2 %; Immature Granulocytes Absolute 0.11 #; Lymphocytes # 0.6 10*3/uL (1.4-4.0); Mean Corpuscular HGB Conc 37.4 GM/DL (32-36); Mean Corpuscular Volume 97.8 FL (87-102); Mean Platelet Volume 12.5 FL (9.6-12.0); Monocytes % 3.8 % (1.7-12.7); Neutrophils % 87.4 % (38.7-73.9); Red Blood Count 2.27 MC/CUMM (3.8-5.5); Red Cell Distribution Width 17.2 % (9.3-17.3); White Blood Count 9.2 T/CUMM (4-12)
[2020-06-05 06:35] LABS: Platelet Count 72 T/CUMM (130-400)
[2020-06-05] MEDS: POTASSIUM CHLORIDE RIDER 20 MEQ in PREMIX 1 EACH IV PRN ×2 (06:40→08:30)
[2020-06-05 06:42] LABS: Band Neutrophils 33 % (0-10); Lymphocytes 4 % (20-55); Metamyelocytes 3 %; Nucleated Red Blood Cells 1 (0-5); Segmented Neutrophils 58 % (50-85); Total Cells Counted 100
[2020-06-05 06:43] LABS: Platelet Estimate Decreased; Rouleau Slight
[2020-06-05 06:44] LABS: Anisocytosis Slight; Macrocytosis Slight
[2020-06-05] MEDS: INSULIN GLARGINE 100 UNIT/ML SUBCUT SCH (08:30)
[2020-06-05] MEDS: PANTOPRAZOLE 40 MG VIAL IV SCH ×2 (09:00→21:34)
[2020-06-05] MEDS: carvediloL 6.25 MG TABLET PO SCH ×2 (09:00→21:34)
[2020-06-05] MEDS: ESCITALOPRAM 10 MG TABLET PO SCH (09:00)
[2020-06-05] MEDS: FUROSEMIDE 20 MG/2 ML VIAL IV SCH (09:00)
[2020-06-05] MEDS: FAT EMULSION 20% 250 ML IV SCH (09:05)
[2020-06-05] MEDS: VANCOMYCIN INJ 1,500 MG in SODIUM CHLORIDE 0.9% 500 ML IV SCH (09:10)
[2020-06-05] MEDS: SODIUM CHLORIDE 23.4% CONC INJ 38.5 MEQ in STERILE WATER INJ 1,000 ML IV SCH (13:15)
[2020-06-05] MEDS ORDERED: INSULIN REGULAR IV SCH ×2 (17:00)
[2020-06-05] MEDS ORDERED: [UNRECOGNIZED DRUG - OTHER] IV SCH (17:00)
[2020-06-05] MEDS ORDERED: POTASSIUM PHOSPHATE IV SCH ×2 (17:00)
[2020-06-05] MEDS ORDERED: [UNRECOGNIZED DRUG - OTHER] IV SCH (17:00)
[2020-06-05] MEDS ORDERED: POTASSIUM CHLORIDE IV SCH ×2 (17:00)
[2020-06-05] MEDS: ATORVASTATIN 40 MG TABLET PO SCH (21:34)
[2020-06-06] MEDS: INSULIN LISPRO 100 UNIT/ML SUBCUT SCH ×5 (00:13→23:53)
[2020-06-06 02:59] LABS: ABG Base Excess -5.8 MMOL/L (-2.5-2.5); ABG HCO3 17.7 MMOL/L (20-26); ABG Oxygen Saturation 98.1 % (95-100); ABG PCO2 27.5 MM HG (35-48); ABG PH 7.427 (7.35-7.45); ABG PO2 168.6 MM HG (80-95); ABG TCO2 18.6 MMOL/L (23-27)
[2020-06-06] MEDS: SODIUM CHLORIDE 23.4% CONC INJ 38.5 MEQ in STERILE WATER INJ 1,000 ML IV SCH (04:25)
[2020-06-06] MEDS: metroNIDAZOLE INJ 500 MG in PREMIX 1 EACH IV SCH ×4 (04:48→20:50)
[2020-06-06] MEDS: CEFEPIME 1,000 MG in SODIUM CHLORIDE 0.9% 100 ML IV SCH ×4 (04:48→23:53)
[2020-06-06] MEDS: METOCLOPRAMIDE 10 MG/2 ML VIAL IV SCH ×4 (04:49→23:53)
[2020-06-06] MEDS: ALBUMIN 25% 12.5 GM in PREMIX 1 EACH IV SCH ×3 (06:10→22:16)
[2020-06-06 06:19] LABS: Bilirubin,Total 1.6 MG/DL (0.2-1.0); Calcium 7.5 MG/DL (8.5-10.1); Osmolality,Calculated 345.4 MOS/KG (273-304); Potassium 3.3 MMOL/L (3.5-5.1); Total Protein 4.4 G/DL (6.4-8.3)
[2020-06-06 07:24] LABS: Basophils % 0.3 % (0.0-0.8); Eosinophils # 0.1 10*3/uL (0.0-0.87); Eosinophils % 0.5 % (0.00-10.9); Hematocrit 21.3 VOL% (35.7-47.0); Hemoglobin 8.3 GM/DL (12.0-16.0); Immature Granulocytes % 1.2 %; Immature Granulocytes Absolute 0.11 #; Lymphocytes # 0.7 10*3/uL (1.4-4.0); Lymphocytes % 7.5 % (21.3-54.2); Mean Corpuscular Volume 102.4 FL (87-102); Mean Platelet Volume 12.8 FL (9.6-12.0); Monocytes % 3.3 % (1.7-12.7); Neutrophils % 87.2 % (38.7-73.9); Platelet Count 63 T/CUMM (130-400); Red Blood Count 2.08 MC/CUMM (3.8-5.5); Red Cell Distribution Width 19.5 % (9.3-17.3); White Blood Count 9.3 T/CUMM (4-12)
[2020-06-06 07:36] LABS: Band Neutrophils 45 % (0-10); Lymphocytes 8 % (20-55); Metamyelocytes 2 %; Platelet Estimate Decreased; Segmented Neutrophils 43 % (50-85); Smudge Cells Few; Total Cells Counted 100
[2020-06-06 07:37] LABS: Anisocytosis 2+; Rouleau Slight
[2020-06-06 07:38] LABS: Burr Cells Few; Macrocytosis 1+
[2020-06-06] MEDS: carvediloL 6.25 MG TABLET PO SCH ×2 (08:59→20:57)
[2020-06-06] MEDS: INSULIN GLARGINE 100 UNIT/ML SUBCUT SCH (08:59)
[2020-06-06] MEDS: ESCITALOPRAM 10 MG TABLET PO SCH (08:59)
[2020-06-06] MEDS: PANTOPRAZOLE 40 MG VIAL IV SCH ×2 (08:59→20:50)
[2020-06-06] MEDS: VANCOMYCIN INJ 1,500 MG in SODIUM CHLORIDE 0.9% 500 ML IV SCH (09:00)
[2020-06-06] MEDS: DEXTROSE 5% 1,000 ML IV SCH ×2 (12:03→20:57)
[2020-06-06] MEDS: FUROSEMIDE 40 MG/4 ML VIAL IV SCH (15:42)
[2020-06-06] MEDS ORDERED: MULTIVITAMIN IV SCH ×2 (17:00)
[2020-06-06] MEDS ORDERED: [UNRECOGNIZED DRUG - OTHER] IV SCH (17:00)
[2020-06-06] MEDS ORDERED: [UNRECOGNIZED DRUG - OTHER] IV SCH (17:00)
[2020-06-06] MEDS ORDERED: INSULIN REGULAR IV SCH ×2 (17:00)
[2020-06-06] MEDS ORDERED: CALCIUM GLUCONATE IV SCH (17:00)
[2020-06-06] MEDS ORDERED: POTASSIUM PHOSPHATE IV SCH (17:00)
[2020-06-06] MEDS: ATORVASTATIN 40 MG TABLET PO SCH (20:57)
[2020-06-07] MEDS: HYDROmorphone 2 MG/1 ML VIAL IV PRN ×3 (03:47→22:42)
[2020-06-07 04:52] LABS: Albumin 1.8 G/DL (3.4-5.0); Bilirubin,Total 1.4 MG/DL (0.2-1.0); Calcium 7.3 MG/DL (8.5-10.1); Potassium 3.3 MMOL/L (3.5-5.1); Total Protein 4.6 G/DL (6.4-8.3)
[2020-06-07 05:01] LABS: ABG Base Excess -9.1 MMOL/L (-2.5-2.5); ABG Oxygen Saturation 98.3 % (95-100); ABG PCO2 26.6 MM HG (35-48); ABG TCO2 15.8 MMOL/L (23-27)
[2020-06-07] MEDS: METOCLOPRAMIDE 10 MG/2 ML VIAL IV SCH ×3 (05:17→17:19)
[2020-06-07] MEDS: metroNIDAZOLE INJ 500 MG in PREMIX 1 EACH IV SCH ×3 (05:17→20:56)
[2020-06-07] MEDS: CEFEPIME 1,000 MG in SODIUM CHLORIDE 0.9% 100 ML IV SCH ×3 (05:17→18:50)
[2020-06-07 05:48] LABS: Basophils % 0.2 % (0.0-0.8); Eosinophils # 0.1 10*3/uL (0.0-0.87); Eosinophils % 0.8 % (0.00-10.9); Hematocrit 22.9 VOL% (35.7-47.0); Immature Granulocytes % 2.3 %; Immature Granulocytes Absolute 0.19 #; Lymphocytes # 0.7 10*3/uL (1.4-4.0); Lymphocytes % 8.6 % (21.3-54.2); Mean Corpuscular HGB Conc 34.9 GM/DL (32-36); Mean Corpuscular Volume 101.8 FL (87-102); Mean Platelet Volume 13.2 FL (9.6-12.0); Monocytes % 4.9 % (1.7-12.7); Neutrophils % 83.2 % (38.7-73.9); Platelet Count 70 T/CUMM (130-400); Red Blood Count 2.25 MC/CUMM (3.8-5.5); Red Cell Distribution Width 18.5 % (9.3-17.3); White Blood Count 8.3 T/CUMM (4-12)
[2020-06-07] MEDS: INSULIN LISPRO 100 UNIT/ML SUBCUT SCH ×3 (05:53→18:54)
[2020-06-07] MEDS: ALBUMIN 25% 12.5 GM in PREMIX 1 EACH IV SCH ×3 (05:53→22:40)
[2020-06-07 05:57] LABS: Band Neutrophils 14 % (0-10); Eosinophils 1 % (0-10); Lymphocytes 4 % (20-55); Segmented Neutrophils 79 % (50-85); Total Cells Counted 100
[2020-06-07 05:58] LABS: Hypochromasia Slight; Macrocytosis 1+
[2020-06-07 05:59] LABS: Platelet Estimate Decreased; Rouleau Slight
[2020-06-07] MEDS: DEXTROSE 5% 1,000 ML IV SCH ×3 (07:32→21:00)
[2020-06-07] MEDS: FUROSEMIDE 40 MG/4 ML VIAL IV SCH ×2 (09:48→17:19)
[2020-06-07] MEDS: carvediloL 6.25 MG TABLET PO SCH ×2 (09:48→20:36)
[2020-06-07] MEDS: FAT EMULSION 20% 250 ML IV SCH (09:48)
[2020-06-07] MEDS: ESCITALOPRAM 10 MG TABLET PO SCH (09:51)
[2020-06-07] MEDS: INSULIN GLARGINE 100 UNIT/ML SUBCUT SCH (09:51)
[2020-06-07] MEDS: PANTOPRAZOLE 40 MG VIAL IV SCH ×2 (09:51→20:56)
[2020-06-07] MEDS: POTASSIUM CHLORIDE RIDER 20 MEQ in PREMIX 1 EACH IV PRN ×3 (10:35→18:20)
[2020-06-07] MEDS: INSULIN REGULAR IV SCH (18:28)
[2020-06-07] MEDS: POTASSIUM CHLORIDE IV SCH (18:28)
[2020-06-07] MEDS: POTASSIUM PHOSPHATE IV SCH (18:28)
[2020-06-07] MEDS: [UNRECOGNIZED DRUG - OTHER] IV SCH (18:28)
[2020-06-07] MEDS: ATORVASTATIN 40 MG TABLET PO SCH (20:36)
[2020-06-08] MEDS: METOCLOPRAMIDE 10 MG/2 ML VIAL IV SCH ×5 (00:05→23:01)
[2020-06-08] MEDS: CEFEPIME 1,000 MG in SODIUM CHLORIDE 0.9% 100 ML IV SCH ×5 (00:05→23:29)
[2020-06-08] MEDS: INSULIN LISPRO 100 UNIT/ML SUBCUT SCH ×4 (00:06→18:12)
[2020-06-08 01:41] LABS: ABG Base Excess -11.7 MMOL/L (-2.5-2.5); ABG HCO3 15.2 MMOL/L (20-26); ABG Oxygen Saturation 99.5 % (95-100); ABG PCO2 29.4 MM HG (35-48); ABG PH 7.286 (7.35-7.45); ABG TCO2 13.1 MMOL/L (23-27)
[2020-06-08] MEDS: HYDROmorphone 2 MG/1 ML VIAL IV PRN ×3 (01:42→22:55)
[2020-06-08 02:09] LABS: Albumin 2.2 G/DL (3.4-5.0); Bilirubin,Total 1.4 MG/DL (0.2-1.0); Calcium 7.3 MG/DL (8.5-10.1); Osmolality,Calculated 326.8 MOS/KG (273-304); Potassium 4.3 MMOL/L (3.5-5.1); Total Protein 4.8 G/DL (6.4-8.3)
[2020-06-08 02:10] LABS: Basophils % 0.2 % (0.0-0.8); Eosinophils # 0.1 10*3/uL (0.0-0.87); Eosinophils % 1.2 % (0.00-10.9); Hematocrit 21.2 VOL% (35.7-47.0); Hemoglobin 7.7 GM/DL (12.0-16.0); Immature Granulocytes % 4.4 %; Lymphocytes % 10.5 % (21.3-54.2); Mean Corpuscular HGB Conc 36.3 GM/DL (32-36); Mean Corpuscular Volume 107.6 FL (87-102); Mean Platelet Volume 12.8 FL (9.6-12.0); Monocytes % 4.1 % (1.7-12.7); Neutrophils % 79.6 % (38.7-73.9); Platelet Count 66 T/CUMM (130-400); Red Blood Count 1.97 MC/CUMM (3.8-5.5); Red Cell Distribution Width 20.1 % (9.3-17.3)
[2020-06-08] MEDS ORDERED: SODIUM BICARBONATE 50 MEQ/50 ML VIAL IV ONE (02:12)
[2020-06-08 02:16] LABS: Band Neutrophils 3 % (0-10); Hypochromasia 1+; Lymphocytes 8 % (20-55); Macrocytosis Slight; Myelocytes 1 %; Platelet Estimate Decreased; Segmented Neutrophils 86 % (50-85); Total Cells Counted 100
[2020-06-08] MEDS: SODIUM BICARB INJ 100 MEQ in DEXTROSE 5% 1,000 ML IV SCH ×2 (02:39→13:22)
[2020-06-08] MEDS ORDERED: MIDAZOLAM 2 MG/2 ML VIAL IV ONE (04:51)
[2020-06-08 05:08] LABS: ABG Base Excess -9.5 MMOL/L (-2.5-2.5); ABG HCO3 16.8 MMOL/L (20-26); ABG Oxygen Saturation 99.9 % (95-100); ABG PCO2 28.9 MM HG (35-48); ABG PH 7.335 (7.35-7.45); ABG TCO2 14.4 MMOL/L (23-27)
[2020-06-08] MEDS: metroNIDAZOLE INJ 500 MG in PREMIX 1 EACH IV SCH ×3 (05:13→20:06)
[2020-06-08] MEDS: ALBUMIN 25% 12.5 GM in PREMIX 1 EACH IV SCH ×3 (06:12→22:48)
[2020-06-08] MEDS: INSULIN GLARGINE 100 UNIT/ML SUBCUT SCH (08:15)
[2020-06-08] MEDS: PANTOPRAZOLE 40 MG VIAL IV SCH ×2 (08:15→20:06)
[2020-06-08] MEDS: ESCITALOPRAM 10 MG TABLET PO SCH ×2 (08:16→09:00)
[2020-06-08] MEDS: carvediloL 6.25 MG TABLET PO SCH ×3 (08:16→20:30)
[2020-06-08] MEDS: FUROSEMIDE 40 MG/4 ML VIAL IV SCH ×2 (08:16→16:14)
[2020-06-08] MEDS: INSULIN REGULAR IV SCH (16:15)
[2020-06-08] MEDS: POTASSIUM CHLORIDE IV SCH (16:15)
[2020-06-08] MEDS: [UNRECOGNIZED DRUG - OTHER] IV SCH (16:15)
[2020-06-08] MEDS: POTASSIUM PHOSPHATE IV SCH (16:15)
[2020-06-08] MEDS: ATORVASTATIN 40 MG TABLET PO SCH (20:30)
[2020-06-09] MEDS: SODIUM BICARB INJ 100 MEQ in DEXTROSE 5% 1,000 ML IV SCH ×2 (00:41→17:44)
[2020-06-09] MEDS: INSULIN LISPRO 100 UNIT/ML SUBCUT SCH ×4 (00:43→19:07)
[2020-06-09 03:23] LABS: Allen Test Positive; Pt O2 Delivery Device Ventilator
[2020-06-09 03:24] LABS: ABG Base Excess -7.6 MMOL/L (-2.5-2.5); ABG HCO3 18.2 MMOL/L (20-26); ABG Oxygen Saturation 99.9 % (95-100); ABG PCO2 29.6 MM HG (35-48); ABG PH 7.366 (7.35-7.45); ABG TCO2 15.9 MMOL/L (23-27)
[2020-06-09] MEDS: metroNIDAZOLE INJ 500 MG in PREMIX 1 EACH IV SCH ×3 (03:24→21:01)
[2020-06-09] MEDS: HYDROmorphone 2 MG/1 ML VIAL IV PRN ×2 (04:10→19:40)
[2020-06-09 04:51] LABS: Bilirubin,Total 2.1 MG/DL (0.2-1.0); Calcium 7.5 MG/DL (8.5-10.1); Osmolality,Calculated 326.6 MOS/KG (273-304); Potassium 4.4 MMOL/L (3.5-5.1); Total Protein 4.6 G/DL (6.4-8.3)
[2020-06-09 05:09] LABS: Basophils % 0.2 % (0.0-0.8); Eosinophils # 0.1 10*3/uL (0.0-0.87); Eosinophils % 0.9 % (0.00-10.9); Hemoglobin 7.7 GM/DL (12.0-16.0); Immature Granulocytes % 5.1 %; Immature Granulocytes Absolute 0.42 #; Lymphocytes # 0.7 10*3/uL (1.4-4.0); Lymphocytes % 8.9 % (21.3-54.2); Mean Corpuscular HGB Conc 40.5 GM/DL (32-36); Mean Corpuscular Volume 107.3 FL (87-102); Monocytes % 4.3 % (1.7-12.7); NRBC # 0.02 10*3/uL; Neutrophils % 80.6 % (38.7-73.9); Platelet Count 73 T/CUMM (130-400); Red Blood Count 1.77 MC/CUMM (3.8-5.5); Red Cell Distribution Width 21.2 % (9.3-17.3); White Blood Count 8.2 T/CUMM (4-12)
[2020-06-09 05:25] LABS: Band Neutrophils 13 % (0-10); Eosinophils 1 % (0-10); Lymphocytes 6 % (20-55); Metamyelocytes 3 %; Myelocytes 3 %; Promyelocytes 2 %; Segmented Neutrophils 69 % (50-85); Total Cells Counted 100
[2020-06-09 05:26] LABS: Hypochromasia 1+; Macrocytosis 1+; Target Cells Slight
[2020-06-09 05:27] LABS: Platelet Estimate Decreased; Polychromasia Slight; Rouleau Slight
[2020-06-09] MEDS: CEFEPIME 1,000 MG in SODIUM CHLORIDE 0.9% 100 ML IV SCH ×4 (05:58→23:14)
[2020-06-09] MEDS: METOCLOPRAMIDE 10 MG/2 ML VIAL IV SCH ×4 (05:58→23:14)
[2020-06-09] MEDS: ALBUMIN 25% 12.5 GM in PREMIX 1 EACH IV SCH ×3 (05:59→21:06)
[2020-06-09] MEDS: FAT EMULSION 20% 250 ML IV SCH (08:42)
[2020-06-09] MEDS: INSULIN GLARGINE 100 UNIT/ML SUBCUT SCH (08:42)
[2020-06-09] MEDS: PANTOPRAZOLE 40 MG VIAL IV SCH ×2 (08:43→20:58)
[2020-06-09] MEDS: ESCITALOPRAM 10 MG TABLET PO SCH (08:43)
[2020-06-09] MEDS: carvediloL 6.25 MG TABLET PO SCH ×2 (08:43→20:59)
[2020-06-09] MEDS: FUROSEMIDE 40 MG/4 ML VIAL IV SCH ×2 (08:43→15:21)
[2020-06-09] MEDS: VANCOMYCIN INJ 1,500 MG in SODIUM CHLORIDE 0.9% 500 ML IV SCH (11:53)
[2020-06-09] MEDS: POTASSIUM CHLORIDE IV SCH (17:44)
[2020-06-09] MEDS: [UNRECOGNIZED DRUG - OTHER] IV SCH (17:44)
[2020-06-09] MEDS: INSULIN REGULAR IV SCH (17:44)
[2020-06-09] MEDS: POTASSIUM PHOSPHATE IV SCH (17:44)
[2020-06-09] MEDS: SODIUM HYPOCHLORITE 0.25% IRRIG 473 ML BOTTLE TOP PRN (19:13)
[2020-06-09] MEDS: ATORVASTATIN 40 MG TABLET PO SCH (20:59)
[2020-06-10] MEDS: INSULIN LISPRO 100 UNIT/ML SUBCUT SCH ×4 (00:09→17:57)
[2020-06-10 03:49] LABS: Basophils % 0.4 % (0.0-0.8); Eosinophils # 0.1 10*3/uL (0.0-0.87); Eosinophils % 0.9 % (0.00-10.9); Hematocrit 23.2 VOL% (35.7-47.0); Hemoglobin 7.4 GM/DL (12.0-16.0); Immature Granulocytes % 5.9 %; Immature Granulocytes Absolute 0.62 #; Lymphocytes # 0.8 10*3/uL (1.4-4.0); Lymphocytes % 7.5 % (21.3-54.2); Mean Corpuscular HGB Conc 31.9 GM/DL (32-36); Mean Corpuscular Volume 101.8 FL (87-102); Mean Platelet Volume 13.1 FL (9.6-12.0); Monocytes % 4.7 % (1.7-12.7); NRBC # 0.02 10*3/uL; Neutrophils % 80.6 % (38.7-73.9); Platelet Count 77 T/CUMM (130-400); Red Cell Distribution Width 18.8 % (9.3-17.3); White Blood Count 10.5 T/CUMM (4-12)
[2020-06-10 03:50] LABS: Red Blood Count 2.28 MC/CUMM (3.8-5.5)
[2020-06-10 04:19] LABS: ABG Base Excess -8.7 MMOL/L (-2.5-2.5); ABG HCO3 17.4 MMOL/L (20-26); ABG Oxygen Saturation 99.7 % (95-100); ABG PCO2 23.2 MM HG (35-48); ABG PH 7.413 (7.35-7.45); ABG TCO2 13.8 MMOL/L (23-27)
[2020-06-10 04:35] LABS: Bilirubin,Total 2.2 MG/DL (0.2-1.0); Calcium 7.2 MG/DL (8.5-10.1); Potassium 4.6 MMOL/L (3.5-5.1); Total Protein 4.5 G/DL (6.4-8.3)
[2020-06-10 04:38] LABS: Band Neutrophils 6 % (0-10); Hypochromasia 1+; Lymphocytes 4 % (20-55); Macrocytosis 1+; Metamyelocytes 1 %; Myelocytes 1 %; Polychromasia Slight; Promyelocytes 2 %; Segmented Neutrophils 82 % (50-85); Total Cells Counted 100
[2020-06-10 04:39] LABS: Rouleau Slight
[2020-06-10 04:40] LABS: Platelet Estimate Decreased; Tear Drop Cells Slight
[2020-06-10] MEDS: metroNIDAZOLE INJ 500 MG in PREMIX 1 EACH IV SCH ×3 (04:45→20:50)
[2020-06-10] MEDS: CEFEPIME 1,000 MG in SODIUM CHLORIDE 0.9% 100 ML IV SCH ×2 (04:45→13:31)
[2020-06-10] MEDS: METOCLOPRAMIDE 10 MG/2 ML VIAL IV SCH ×3 (04:45→18:01)
[2020-06-10] MEDS: ALBUMIN 25% 12.5 GM in PREMIX 1 EACH IV SCH ×3 (06:19→20:59)
[2020-06-10] MEDS: FUROSEMIDE 40 MG/4 ML VIAL IV SCH ×2 (08:16→17:56)
[2020-06-10] MEDS: PANTOPRAZOLE 40 MG VIAL IV SCH ×2 (08:17→20:50)
[2020-06-10] MEDS: carvediloL 6.25 MG TABLET PO SCH ×2 (08:17→20:50)
[2020-06-10] MEDS: ESCITALOPRAM 10 MG TABLET PO SCH (08:17)
[2020-06-10] MEDS: INSULIN GLARGINE 100 UNIT/ML SUBCUT SCH (08:18)
[2020-06-10] MEDS ORDERED: SODIUM BICARB INJ 100 MEQ in DEXTROSE 5% 1,000 ML IV SCH (10:44)
[2020-06-10] MEDS ORDERED: SODIUM BICARBONATE 50 MEQ/50 ML VIAL IV ONE ×2 (10:44→10:45)
[2020-06-10] MEDS: SODIUM BICARB INJ 100 MEQ in DEXTROSE 5% 1,000 ML IV SCH (13:39)
[2020-06-10] MEDS: [UNRECOGNIZED DRUG - OTHER] IV SCH (17:56)
[2020-06-10] MEDS: POTASSIUM PHOSPHATE IV SCH (17:56)
[2020-06-10] MEDS: INSULIN REGULAR IV SCH (17:56)
[2020-06-10] MEDS: POTASSIUM CHLORIDE IV SCH (17:56)
[2020-06-10] MEDS: ATORVASTATIN 40 MG TABLET PO SCH (20:50)
[2020-06-10] MEDS: SODIUM BICARBONATE 650 MG TABLET PER TUBE SCH (20:50)
[2020-06-11] MEDS: METOCLOPRAMIDE 10 MG/2 ML VIAL IV SCH ×5 (00:02→22:52)
[2020-06-11] MEDS: INSULIN LISPRO 100 UNIT/ML SUBCUT SCH ×4 (00:03→18:23)
[2020-06-11] MEDS: SODIUM BICARB INJ 100 MEQ in DEXTROSE 5% 1,000 ML IV SCH ×2 (00:25→10:07)
[2020-06-11] MEDS: SODIUM HYPOCHLORITE 0.25% IRRIG 473 ML BOTTLE TOP PRN (01:00)
[2020-06-11 04:04] LABS: ABG Base Excess -7.7 MMOL/L (-2.5-2.5); ABG HCO3 18.1 MMOL/L (20-26); ABG Oxygen Saturation 99.9 % (95-100); ABG PCO2 22.6 MM HG (35-48); ABG PH 7.443 (7.35-7.45); ABG TCO2 14.5 MMOL/L (23-27); Allen Test Positive; Pt O2 Delivery Device Ventilator
[2020-06-11 04:48] LABS: Basophils % 0.3 % (0.0-0.8); Eosinophils # 0.1 10*3/uL (0.0-0.87); Eosinophils % 0.8 % (0.00-10.9); Hematocrit 19.2 VOL% (35.7-47.0); Hemoglobin 6.9 GM/DL (12.0-16.0); Immature Granulocytes % 6.8 %; Immature Granulocytes Absolute 0.69 #; Lymphocytes # 0.9 10*3/uL (1.4-4.0); Lymphocytes % 9.3 % (21.3-54.2); Mean Corpuscular HGB Conc 35.9 GM/DL (32-36); Mean Corpuscular Volume 106.7 FL (87-102); Mean Platelet Volume 13.2 FL (9.6-12.0); Monocytes % 5.4 % (1.7-12.7); Neutrophils % 77.4 % (38.7-73.9); Platelet Count 91 T/CUMM (130-400); Red Cell Distribution Width 22.5 % (9.3-17.3); White Blood Count 10.2 T/CUMM (4-12)
[2020-06-11 05:06] LABS: Band Neutrophils 2 % (0-10); Hypochromasia 2+; Lymphocytes 8 % (20-55); Platelet Estimate Decreased; Segmented Neutrophils 87 % (50-85); Total Cells Counted 100
[2020-06-11 05:07] LABS: Macrocytosis Slight; Polychromasia Slight
[2020-06-11 05:09] LABS: Bilirubin,Total 2.7 MG/DL (0.2-1.0); Calcium 7.4 MG/DL (8.5-10.1); Osmolality,Calculated 332.7 MOS/KG (273-304); Potassium 4.7 MMOL/L (3.5-5.1); Total Protein 4.7 G/DL (6.4-8.3)
[2020-06-11] MEDS: ALBUMIN 25% 12.5 GM in PREMIX 1 EACH IV SCH ×3 (05:53→22:51)
[2020-06-11] MEDS: FUROSEMIDE 40 MG/4 ML VIAL IV SCH ×2 (08:51→17:17)
[2020-06-11] MEDS: PANTOPRAZOLE 40 MG VIAL IV SCH ×2 (08:59→20:41)
[2020-06-11] MEDS: SODIUM BICARBONATE 650 MG TABLET PER TUBE SCH ×2 (09:00→20:41)
[2020-06-11] MEDS: INSULIN GLARGINE 100 UNIT/ML SUBCUT SCH (09:00)
[2020-06-11] MEDS: carvediloL 6.25 MG TABLET PO SCH ×2 (09:00→20:41)
[2020-06-11] MEDS: ESCITALOPRAM 10 MG TABLET PO SCH (09:00)
[2020-06-11] MEDS: FAT EMULSION 20% 250 ML IV SCH (09:14)
[2020-06-11] MEDS: SODIUM BICARB INJ 150 MEQ in DEXTROSE 5% 850 ML IV SCH (11:13)
[2020-06-11] MEDS: [UNRECOGNIZED DRUG - OTHER] IV SCH (17:20)
[2020-06-11] MEDS: INSULIN REGULAR IV SCH (17:20)
[2020-06-11] MEDS: POTASSIUM PHOSPHATE IV SCH (17:20)
[2020-06-11] MEDS: POTASSIUM CHLORIDE IV SCH (17:20)
[2020-06-11] MEDS: HYDROmorphone 2 MG/1 ML VIAL IV PRN (19:39)
[2020-06-11] MEDS: ATORVASTATIN 40 MG TABLET PO SCH (20:41)
[2020-06-12] MEDS: INSULIN LISPRO 100 UNIT/ML SUBCUT SCH ×5 (00:12→23:51)
[2020-06-12] MEDS: SODIUM BICARB INJ 150 MEQ in DEXTROSE 5% 850 ML IV SCH ×3 (00:40→20:24)
[2020-06-12 02:17] LABS: Hematocrit 27.6 VOL% (35.7-47.0)
[2020-06-12 02:18] LABS: Hemoglobin 9.1 GM/DL (12.0-16.0)
[2020-06-12] MEDS: HYDROmorphone 2 MG/1 ML VIAL IV PRN ×2 (04:50→09:45)
[2020-06-12 05:00] LABS: Allen Test Positive; Pt O2 Delivery Device Ventilator
[2020-06-12 05:01] LABS: ABG Base Excess -5.9 MMOL/L (-2.5-2.5); ABG HCO3 19.6 MMOL/L (20-26); ABG Oxygen Saturation 99.4 % (95-100); ABG PCO2 26.3 MM HG (35-48); ABG PH 7.427 (7.35-7.45); ABG TCO2 15.8 MMOL/L (23-27)
[2020-06-12] MEDS: METOCLOPRAMIDE 10 MG/2 ML VIAL IV SCH ×4 (05:10→23:53)
[2020-06-12] MEDS: ALBUMIN 25% 12.5 GM in PREMIX 1 EACH IV SCH ×3 (05:11→22:04)
[2020-06-12 05:23] LABS: Albumin 1.9 G/DL (3.4-5.0); Bilirubin,Total 2.7 MG/DL (0.2-1.0); Calcium 7.6 MG/DL (8.5-10.1); Osmolality,Calculated 335.7 MOS/KG (273-304); Potassium 4.9 MMOL/L (3.5-5.1); Total Protein 4.8 G/DL (6.4-8.3)
[2020-06-12 06:19] LABS: Basophils # 0.1 10*3/uL (0.0-0.2); Basophils % 0.9 % (0.0-0.8); Eosinophils # 0.1 10*3/uL (0.0-0.87); Eosinophils % 0.9 % (0.00-10.9); Hematocrit 27.6 VOL% (35.7-47.0); Hemoglobin 9.2 GM/DL (12.0-16.0); Immature Granulocytes % 5.3 %; Immature Granulocytes Absolute 0.56 #; Lymphocytes # 0.9 10*3/uL (1.4-4.0); Lymphocytes % 8.3 % (21.3-54.2); Mean Corpuscular HGB Conc 33.3 GM/DL (32-36); Mean Corpuscular Volume 98.9 FL (87-102); Mean Platelet Volume 14.2 FL (9.6-12.0); Monocytes % 5.2 % (1.7-12.7); Neutrophils % 79.4 % (38.7-73.9); Red Cell Distribution Width 18.8 % (9.3-17.3); White Blood Count 10.5 T/CUMM (4-12)
[2020-06-12 06:27] LABS: Platelet Count 78 T/CUMM (130-400)
[2020-06-12 06:29] LABS: Red Blood Count 2.79 MC/CUMM (3.8-5.5)
[2020-06-12 06:34] LABS: Band Neutrophils 3 % (0-10); Eosinophils 2 % (0-10); Hypochromasia 1+; Lymphocytes 12 % (20-55); Microcytosis 1+; Myelocytes 1 %; Ovalocytes Slight; Platelet Estimate Decreased; Segmented Neutrophils 80 % (50-85); Total Cells Counted 100
[2020-06-12] MEDS: DEXMEDETOMIDINE 400 MCG in SODIUM CHLORIDE 0.9% 96 ML IV PRN (08:12)
[2020-06-12] MEDS: PANTOPRAZOLE 40 MG VIAL IV SCH ×2 (09:47→22:02)
[2020-06-12] MEDS: FUROSEMIDE 40 MG/4 ML VIAL IV SCH ×2 (09:47→15:16)
[2020-06-12] MEDS: carvediloL 6.25 MG TABLET PO SCH ×2 (09:47→22:02)
[2020-06-12] MEDS: INSULIN GLARGINE 100 UNIT/ML SUBCUT SCH ×2 (09:47→22:03)
[2020-06-12] MEDS: ESCITALOPRAM 10 MG TABLET PO SCH (09:47)
[2020-06-12] MEDS: SODIUM BICARBONATE 650 MG TABLET PER TUBE SCH ×2 (09:47→22:02)
[2020-06-12] MEDS: ACETAMINOPHEN 325 MG/10.15 ML UDCUP PO PRN (12:33)
[2020-06-12] MEDS: VANCOMYCIN INJ 1,500 MG in SODIUM CHLORIDE 0.9% 500 ML IV SCH (12:41)
[2020-06-12] MEDS: MENTHOL/ZINC OXIDE OINT 71 GM JAR TOP SCH ×2 (13:14→22:01)
[2020-06-12 14:09] LABS: Amorphous Crystals,Urine Occasional /HPF (Few); Bacteria,Urine Moderate /HPF (Few); Bilirubin,Urine Negative (Negative); Blood, Urine Large mg/dL (Negative); Glucose,Urine (UA) Negative (Negative); Hyaline Casts,Urine 30 /LPF (0-3); Ketones,Urine Negative (Negative); Nitrite,Urine Negative (Negative); Protein,Urine 100 MG/DL; RBC,Urine 62 /HPF (0-4); Urine Appearance CLOUDY (Clear); Urine Color Amber (Yellow); Urine Specific Gravity 1.014 (1.001-1.035); Urine Urobilinogen < 2.0 EU/DL (0.2-1.0); WBC,Urine 211 /HPF (0-6)
[2020-06-12] MEDS: [UNRECOGNIZED DRUG - OTHER] IV SCH (17:21)
[2020-06-12] MEDS: POTASSIUM PHOSPHATE IV SCH (17:21)
[2020-06-12] MEDS: INSULIN REGULAR IV SCH (17:21)
[2020-06-12] MEDS: POTASSIUM CHLORIDE IV SCH (17:21)
[2020-06-12] MEDS: LOPERAMIDE 1 MG/7.5 ML 30 ML BOTTLE PO SCH (22:02)
[2020-06-12] MEDS: ATORVASTATIN 40 MG TABLET PO SCH (22:02)
[2020-06-13] MEDS: HYDROmorphone 2 MG/1 ML VIAL IV PRN ×2 (03:40→16:05)
[2020-06-13] MEDS: SODIUM BICARB INJ 150 MEQ in DEXTROSE 5% 850 ML IV SCH (04:41)
[2020-06-13] MEDS: METOCLOPRAMIDE 10 MG/2 ML VIAL IV SCH ×2 (06:05→11:21)
[2020-06-13] MEDS: ALBUMIN 25% 12.5 GM in PREMIX 1 EACH IV SCH ×3 (06:06→22:05)
[2020-06-13] MEDS: INSULIN LISPRO 100 UNIT/ML SUBCUT SCH ×3 (06:06→19:06)
[2020-06-13 06:18] LABS: Basophils % 0.3 % (0.0-0.8); Eosinophils # 0.1 10*3/uL (0.0-0.87); Eosinophils % 1.3 % (0.00-10.9); Hematocrit 20.2 VOL% (35.7-47.0); Immature Granulocytes % 4.9 %; Immature Granulocytes Absolute 0.44 #; Lymphocytes % 10.6 % (21.3-54.2); Mean Corpuscular HGB Conc 40.6 GM/DL (32-36); Mean Corpuscular Volume 103.1 FL (87-102); Mean Platelet Volume 13.7 FL (9.6-12.0); Monocytes % 5.4 % (1.7-12.7); NRBC # 0.02 10*3/uL; Neutrophils % 77.5 % (38.7-73.9)
[2020-06-13 06:20] LABS: Calcium 7.4 MG/DL (8.5-10.1); Osmolality,Calculated 326.4 MOS/KG (273-304); Potassium 5.1 MMOL/L (3.5-5.1)
[2020-06-13 06:38] LABS: Red Blood Count 1.96 MC/CUMM (3.8-5.5)
[2020-06-13 06:39] LABS: Hemoglobin 8.2 GM/DL (12.0-16.0); Platelet Count 82 T/CUMM (130-400)
[2020-06-13 06:42] LABS: Band Neutrophils 6 % (0-10); Hypochromasia Slight; Lymphocytes 10 % (20-55); Macrocytosis Slight; Platelet Estimate Decreased; Segmented Neutrophils 81 % (50-85); Total Cells Counted 100
[2020-06-13] MEDS: FUROSEMIDE 40 MG/4 ML VIAL IV SCH ×2 (08:58→16:07)
[2020-06-13] MEDS: SODIUM BICARBONATE 650 MG TABLET PER TUBE SCH ×2 (08:58→21:55)
[2020-06-13] MEDS: carvediloL 6.25 MG TABLET PO SCH ×2 (08:58→21:55)
[2020-06-13] MEDS: ESCITALOPRAM 10 MG TABLET PO SCH (08:58)
[2020-06-13] MEDS: PANTOPRAZOLE 40 MG VIAL IV SCH ×2 (09:00→21:56)
[2020-06-13] MEDS: MENTHOL/ZINC OXIDE OINT 71 GM JAR TOP SCH ×2 (09:02→21:56)
[2020-06-13] MEDS: INSULIN GLARGINE 100 UNIT/ML SUBCUT SCH ×2 (09:03→21:58)
[2020-06-13] MEDS: FAT EMULSION 20% 250 ML IV SCH (09:04)
[2020-06-13] MEDS: LOPERAMIDE 1 MG/7.5 ML 30 ML BOTTLE PO SCH ×3 (11:21→21:55)
[2020-06-13 11:23] LABS: Pt O2 Delivery Device Ventilator
[2020-06-13 11:24] LABS: ABG Base Excess -0.8 MMOL/L (-2.5-2.5); ABG HCO3 23.8 MMOL/L (20-26); ABG Oxygen Saturation 99.7 % (95-100); ABG PCO2 29.2 MM HG (35-48); ABG PH 7.486 (7.35-7.45); ABG TCO2 20.4 MMOL/L (23-27)
[2020-06-13] MEDS: cefTRIAXone 1,000 MG in SYRINGE 1 EACH IV SCH (12:29)
[2020-06-13] MEDS: SODIUM BICARB INJ 75 MEQ in DEXTROSE 5% 1,000 ML IV SCH ×2 (12:33→22:07)
[2020-06-13] MEDS: LACTOBACILLUS ACIDOPHILUS/BULGARICUS CAPLET PO SCH (15:54)
[2020-06-13] MEDS: [UNRECOGNIZED DRUG - OTHER] IV SCH (17:46)
[2020-06-13] MEDS: POTASSIUM CHLORIDE IV SCH (17:46)
[2020-06-13] MEDS: INSULIN REGULAR IV SCH (17:46)
[2020-06-13] MEDS: POTASSIUM PHOSPHATE IV SCH (17:46)
[2020-06-13] MEDS: ATORVASTATIN 40 MG TABLET PO SCH (21:55)
[2020-06-14] MEDS: INSULIN LISPRO 100 UNIT/ML SUBCUT SCH ×4 (00:03→18:51)
[2020-06-14 04:39] LABS: Basophils % 0.2 % (0.0-0.8); Eosinophils # 0.1 10*3/uL (0.0-0.87); Eosinophils % 1.2 % (0.00-10.9); Hematocrit 20.5 VOL% (35.7-47.0); Hemoglobin 7.7 GM/DL (12.0-16.0); Immature Granulocytes Absolute 0.25 #; Lymphocytes # 0.8 10*3/uL (1.4-4.0); Lymphocytes % 9.1 % (21.3-54.2); Mean Corpuscular HGB Conc 37.6 GM/DL (32-36); Mean Corpuscular Volume 103.5 FL (87-102); Mean Platelet Volume 13.4 FL (9.6-12.0); Monocytes % 5.3 % (1.7-12.7); Neutrophils % 81.2 % (38.7-73.9); Platelet Count 79 T/CUMM (130-400); Red Blood Count 1.98 MC/CUMM (3.8-5.5); Red Cell Distribution Width 21.8 % (9.3-17.3); White Blood Count 8.2 T/CUMM (4-12)
[2020-06-14 04:51] LABS: Calcium 7.6 MG/DL (8.5-10.1); Osmolality,Calculated 319.8 MOS/KG (273-304); Potassium 5.2 MMOL/L (3.5-5.1)
[2020-06-14 05:02] LABS: Band Neutrophils 4 % (0-10); Eosinophils 5 % (0-10); Hypochromasia 2+; Lymphocytes 9 % (20-55); Microcytosis 1+; Ovalocytes Slight; Platelet Estimate Decreased; Segmented Neutrophils 80 % (50-85); Total Cells Counted 100
[2020-06-14] MEDS: SODIUM BICARB INJ 75 MEQ in DEXTROSE 5% 1,000 ML IV SCH ×3 (05:48→23:00)
[2020-06-14] MEDS: ALBUMIN 25% 12.5 GM in PREMIX 1 EACH IV SCH ×3 (06:29→21:34)
[2020-06-14] MEDS: carvediloL 6.25 MG TABLET PO SCH ×2 (09:07→21:23)
[2020-06-14] MEDS: ESCITALOPRAM 10 MG TABLET PO SCH (09:07)
[2020-06-14] MEDS: SODIUM BICARBONATE 650 MG TABLET PER TUBE SCH ×2 (09:07→21:23)
[2020-06-14] MEDS: LOPERAMIDE 1 MG/7.5 ML 30 ML BOTTLE PO SCH ×3 (09:08→21:23)
[2020-06-14] MEDS: INSULIN GLARGINE 100 UNIT/ML SUBCUT SCH ×2 (09:08→21:23)
[2020-06-14] MEDS: LACTOBACILLUS ACIDOPHILUS/BULGARICUS CAPLET PO SCH (09:09)
[2020-06-14] MEDS: MENTHOL/ZINC OXIDE OINT 71 GM JAR TOP SCH ×2 (09:09→21:30)
[2020-06-14] MEDS: FUROSEMIDE 40 MG/4 ML VIAL IV SCH ×2 (09:10→17:06)
[2020-06-14] MEDS: METOCLOPRAMIDE 10 MG/2 ML VIAL IV SCH ×3 (11:19→21:31)
[2020-06-14] MEDS: PANTOPRAZOLE 40 MG VIAL IV SCH ×2 (11:21→21:29)
[2020-06-14] MEDS: cefTRIAXone 1,000 MG in SYRINGE 1 EACH IV SCH (13:42)
[2020-06-14] MEDS: [UNRECOGNIZED DRUG - OTHER] IV SCH (17:14)
[2020-06-14] MEDS: POTASSIUM PHOSPHATE IV SCH (17:14)
[2020-06-14] MEDS: ELECTROLYTE IV SCH (17:14)
[2020-06-14] MEDS: INSULIN REGULAR IV SCH (17:14)
[2020-06-14] MEDS: ATORVASTATIN 40 MG TABLET PO SCH (21:23)
[2020-06-15] MEDS: INSULIN LISPRO 100 UNIT/ML SUBCUT SCH ×4 (00:54→17:38)
[2020-06-15] MEDS: METOCLOPRAMIDE 10 MG/2 ML VIAL IV SCH ×4 (05:25→21:53)
[2020-06-15] MEDS: ALBUMIN 25% 12.5 GM in PREMIX 1 EACH IV SCH ×3 (05:25→22:01)
[2020-06-15] MEDS: SODIUM BICARB INJ 75 MEQ in DEXTROSE 5% 1,000 ML IV SCH ×3 (07:37→22:50)
[2020-06-15 07:42] LABS: Calcium 7.4 MG/DL (8.5-10.1); Osmolality,Calculated 313.2 MOS/KG (273-304); Potassium 4.9 MMOL/L (3.5-5.1)
[2020-06-15 08:42] LABS: Basophils % 0.3 % (0.0-0.8); Eosinophils # 0.1 10*3/uL (0.0-0.87); Eosinophils % 0.8 % (0.00-10.9); Hematocrit 18.3 VOL% (35.7-47.0); Hemoglobin 7.2 GM/DL (12.0-16.0); Immature Granulocytes % 2.2 %; Immature Granulocytes Absolute 0.19 #; Lymphocytes # 0.7 10*3/uL (1.4-4.0); Lymphocytes % 8.6 % (21.3-54.2); Mean Corpuscular HGB Conc 39.3 GM/DL (32-36); Monocytes % 5.6 % (1.7-12.7); NRBC # 0.02 10*3/uL; Neutrophils % 82.5 % (38.7-73.9); Red Blood Count 1.76 MC/CUMM (3.8-5.5); Red Cell Distribution Width 21.1 % (9.3-17.3); White Blood Count 8.6 T/CUMM (4-12)
[2020-06-15 08:47] LABS: Platelet Count 73 T/CUMM (130-400)
[2020-06-15 08:56] LABS: Anisocytosis 2+; Band Neutrophils 5 % (0-10); Hypochromasia 3+; Lymphocytes 6 % (20-55); Macrocytosis 2+; Metamyelocytes 7 %; Platelet Estimate Decreased; Segmented Neutrophils 77 % (50-85); Total Cells Counted 100
[2020-06-15] MEDS ORDERED: SODIUM CHLORIDE 0.9% 1,000 ML IV PRN (09:13)
[2020-06-15] MEDS: FUROSEMIDE 40 MG/4 ML VIAL IV SCH ×2 (09:17→15:22)
[2020-06-15] MEDS: SODIUM BICARBONATE 650 MG TABLET PER TUBE SCH ×2 (09:18→21:57)
[2020-06-15] MEDS: ESCITALOPRAM 10 MG TABLET PO SCH (09:19)
[2020-06-15] MEDS: LACTOBACILLUS ACIDOPHILUS/BULGARICUS CAPLET PO SCH (09:19)
[2020-06-15] MEDS: carvediloL 6.25 MG TABLET PO SCH ×2 (09:19→21:58)
[2020-06-15] MEDS: PANTOPRAZOLE 40 MG VIAL IV SCH ×2 (09:20→21:54)
[2020-06-15] MEDS: MENTHOL/ZINC OXIDE OINT 71 GM JAR TOP SCH ×2 (09:20→21:58)
[2020-06-15] MEDS: FAT EMULSION 20% 250 ML IV SCH (09:30)
[2020-06-15] MEDS: LOPERAMIDE 1 MG/7.5 ML 30 ML BOTTLE PO SCH (09:54)
[2020-06-15] MEDS ORDERED: SODIUM BICARBONATE 50 MEQ/50 ML VIAL IV ONE (10:30)
[2020-06-15] MEDS: INSULIN GLARGINE 100 UNIT/ML SUBCUT SCH ×2 (10:35→21:56)
[2020-06-15] MEDS: VANCOMYCIN INJ 1,500 MG in SODIUM CHLORIDE 0.9% 500 ML IV SCH (11:18)
[2020-06-15 12:17] LABS: ABG Base Excess 0.8 MMOL/L (-2.5-2.5); ABG HCO3 25.2 MMOL/L (20-26); ABG Oxygen Saturation 99.8 % (95-100); ABG PCO2 30.8 MM HG (35-48); ABG PH 7.499 (7.35-7.45); ABG TCO2 23.1 MMOL/L (23-27)
[2020-06-15] MEDS: cefTRIAXone 1,000 MG in SYRINGE 1 EACH IV SCH (12:19)
[2020-06-15] MEDS ORDERED: LOPERAMIDE 1 MG/7.5 ML 30 ML BOTTLE PO SCH (13:00)
[2020-06-15] MEDS: LIPASE/PROTEASE/AMYLASE 4,200 UNITS CAPSULE PO SCH ×2 (13:32→17:14)
[2020-06-15] MEDS: LOPERAMIDE 2 MG CAPSULE PO SCH ×3 (15:07→21:57)
[2020-06-15] MEDS: SODIUM HYPOCHLORITE 0.25% IRRIG 473 ML BOTTLE TOP PRN (16:36)
[2020-06-15] MEDS: HYDROmorphone 2 MG/1 ML VIAL IV PRN (16:36)
[2020-06-15] MEDS ORDERED: POTASSIUM PHOSPHATE IV SCH (17:00)
[2020-06-15] MEDS ORDERED: [UNRECOGNIZED DRUG - OTHER] IV SCH (17:00)
[2020-06-15] MEDS ORDERED: ELECTROLYTE IV SCH (17:00)
[2020-06-15] MEDS ORDERED: INSULIN REGULAR IV SCH (17:00)
[2020-06-15 17:53] LABS: Hematocrit 26.6 VOL% (35.7-47.0)
[2020-06-15] MEDS: ATORVASTATIN 40 MG TABLET PO SCH (21:58)
[2020-06-16] MEDS: INSULIN LISPRO 100 UNIT/ML SUBCUT SCH ×4 (00:33→18:14)
[2020-06-16] MEDS: HYDROmorphone 2 MG/1 ML VIAL IV PRN ×2 (03:15→18:22)
[2020-06-16 05:04] LABS: ABG Base Excess 1.2 MMOL/L (-2.5-2.5); ABG HCO3 24.8 MMOL/L (20-26); ABG Oxygen Saturation 98.1 % (95-100); ABG PCO2 35.4 MM HG (35-48); ABG PH 7.463 (7.35-7.45); ABG PO2 114.8 MM HG (80-95); ABG TCO2 25.9 MMOL/L (23-27); Allen Test Positive; Pt O2 Delivery Device Ventilator
[2020-06-16] MEDS: METOCLOPRAMIDE 10 MG/2 ML VIAL IV SCH ×4 (05:34→23:15)
[2020-06-16] MEDS: ALBUMIN 25% 12.5 GM in PREMIX 1 EACH IV SCH ×3 (05:56→23:24)
[2020-06-16] MEDS: SODIUM BICARB INJ 75 MEQ in DEXTROSE 5% 1,000 ML IV SCH ×2 (07:07→14:12)
[2020-06-16] MEDS: LACTOBACILLUS ACIDOPHILUS/BULGARICUS CAPLET PO SCH (08:06)
[2020-06-16] MEDS: LOPERAMIDE 2 MG CAPSULE PO SCH ×4 (08:06→21:19)
[2020-06-16] MEDS: LIPASE/PROTEASE/AMYLASE 4,200 UNITS CAPSULE PO SCH ×3 (08:06→16:26)
[2020-06-16] MEDS: SODIUM BICARBONATE 650 MG TABLET PER TUBE SCH ×2 (08:06→21:19)
[2020-06-16] MEDS: ESCITALOPRAM 10 MG TABLET PO SCH (08:07)
[2020-06-16] MEDS: carvediloL 6.25 MG TABLET PO SCH ×2 (08:07→21:19)
[2020-06-16] MEDS: INSULIN GLARGINE 100 UNIT/ML SUBCUT SCH ×2 (08:07→21:20)
[2020-06-16] MEDS: FUROSEMIDE 40 MG/4 ML VIAL IV SCH ×2 (08:08→16:26)
[2020-06-16] MEDS: PANTOPRAZOLE 40 MG VIAL IV SCH ×2 (08:08→21:20)
[2020-06-16] MEDS: MENTHOL/ZINC OXIDE OINT 71 GM JAR TOP SCH ×2 (08:08→21:19)
[2020-06-16 09:00] LABS: Calcium 7.3 MG/DL (8.5-10.1); Osmolality,Calculated 305.9 MOS/KG (273-304); Potassium 4.5 MMOL/L (3.5-5.1)
[2020-06-16 10:11] LABS: Basophils # 0.1 10*3/uL (0.0-0.2); Basophils % 0.5 % (0.0-0.8); Eosinophils # 0.1 10*3/uL (0.0-0.87); Eosinophils % 1.2 % (0.00-10.9); Hematocrit 24.5 VOL% (35.7-47.0); Hemoglobin 9.3 GM/DL (12.0-16.0); Immature Granulocytes % 3.4 %; Immature Granulocytes Absolute 0.36 #; Lymphocytes # 0.6 10*3/uL (1.4-4.0); Lymphocytes % 5.4 % (21.3-54.2); Mean Corpuscular Volume 97.6 FL (87-102); Mean Platelet Volume 13.4 FL (9.6-12.0); Monocytes % 5.7 % (1.7-12.7); Neutrophils % 83.8 % (38.7-73.9); Platelet Count 77 T/CUMM (130-400); Red Blood Count 2.51 MC/CUMM (3.8-5.5); Red Cell Distribution Width 20.3 % (9.3-17.3); White Blood Count 10.6 T/CUMM (4-12)
[2020-06-16] MEDS: cefTRIAXone 1,000 MG in SYRINGE 1 EACH IV SCH (11:07)
[2020-06-16 12:33] LABS: Anisocytosis 2+; Hypochromasia 2+; Poikilocytosis 1+
[2020-06-16 12:34] LABS: Macrocytosis 2+; Microcytosis 2+; Ovalocytes Few; Platelet Estimate Decreased; Polychromasia Slight; Schistocytes Slight; Target Cells Slight
[2020-06-16] MEDS: POTASSIUM PHOSPHATE IV SCH (17:48)
[2020-06-16] MEDS: INSULIN REGULAR IV SCH (17:48)
[2020-06-16] MEDS: [UNRECOGNIZED DRUG - OTHER] IV SCH (17:48)
[2020-06-16] MEDS: ELECTROLYTE IV SCH (17:48)
[2020-06-16] MEDS: ATORVASTATIN 40 MG TABLET PO SCH (21:19)
[2020-06-16] MEDS: DEXTROSE 5% IV SCH (23:31)
[2020-06-16] MEDS: SODIUM ACETATE IV SCH (23:31)
[2020-06-17] MEDS: INSULIN LISPRO 100 UNIT/ML SUBCUT SCH ×4 (00:51→18:13)
[2020-06-17] MEDS: METOCLOPRAMIDE 10 MG/2 ML VIAL IV SCH ×4 (03:59→23:44)
[2020-06-17] MEDS: HYDROmorphone 2 MG/1 ML VIAL IV PRN (04:40)
[2020-06-17 04:50] LABS: ABG Base Excess 1.7 MMOL/L (-2.5-2.5); ABG HCO3 25.2 MMOL/L (20-26); ABG Oxygen Saturation 96.8 % (95-100); ABG PCO2 35.3 MM HG (35-48); ABG PH 7.471 (7.35-7.45); ABG PO2 88.4 MM HG (80-95); ABG TCO2 26.3 MMOL/L (23-27); Allen Test Positive; Pt O2 Delivery Device Ventilator
[2020-06-17 04:57] LABS: Calcium 7.4 MG/DL (8.5-10.1); Osmolality,Calculated 303.2 MOS/KG (273-304); Potassium 4.8 MMOL/L (3.5-5.1)
[2020-06-17] MEDS: ALBUMIN 25% 12.5 GM in PREMIX 1 EACH IV SCH ×3 (06:34→20:26)
[2020-06-17 07:56] LABS: Basophils % 0.4 % (0.0-0.8); Eosinophils # 0.1 10*3/uL (0.0-0.87); Eosinophils % 1.3 % (0.00-10.9); Hematocrit 20.8 VOL% (35.7-47.0); Hemoglobin 9.2 GM/DL (12.0-16.0); Immature Granulocytes % 3.9 %; Immature Granulocytes Absolute 0.35 #; Lymphocytes # 0.5 10*3/uL (1.4-4.0); Mean Corpuscular HGB Conc 44.2 GM/DL (32-36); Mean Corpuscular Volume 100.5 FL (87-102); Mean Platelet Volume 13.5 FL (9.6-12.0); Monocytes % 4.6 % (1.7-12.7); NRBC # 0.02 10*3/uL; Neutrophils % 83.8 % (38.7-73.9); Platelet Count 79 T/CUMM (130-400); Red Blood Count 2.07 MC/CUMM (3.8-5.5)
[2020-06-17 08:03] LABS: Anisocytosis 2+; Band Neutrophils 5 % (0-10); Hypochromasia 2+; Lymphocytes 3 % (20-55); Macrocytosis 2+; Metamyelocytes 1 %; Platelet Estimate Decreased; Polychromasia 2+; Segmented Neutrophils 84 % (50-85); Target Cells 1+; Total Cells Counted 100
[2020-06-17] MEDS ORDERED: FUROSEMIDE 40 MG/4 ML VIAL IV SCH ×2 (09:30→20:00)
[2020-06-17] MEDS: LACTOBACILLUS ACIDOPHILUS/BULGARICUS CAPLET PO SCH (10:04)
[2020-06-17] MEDS: SODIUM BICARBONATE 650 MG TABLET PER TUBE SCH ×2 (10:04→21:29)
[2020-06-17] MEDS: ESCITALOPRAM 10 MG TABLET PO SCH (10:05)
[2020-06-17] MEDS: LOPERAMIDE 2 MG CAPSULE PO SCH ×4 (10:05→21:29)
[2020-06-17] MEDS: carvediloL 6.25 MG TABLET PO SCH ×2 (10:05→21:29)
[2020-06-17] MEDS: PANTOPRAZOLE 40 MG VIAL IV SCH ×2 (10:09→21:30)
[2020-06-17] MEDS: cefTRIAXone 1,000 MG in SYRINGE 1 EACH IV SCH (10:15)
[2020-06-17] MEDS: LIPASE/PROTEASE/AMYLASE 4,200 UNITS CAPSULE PO SCH ×3 (10:20→17:38)
[2020-06-17] MEDS: MENTHOL/ZINC OXIDE OINT 71 GM JAR TOP SCH ×2 (10:22→21:29)
[2020-06-17] MEDS: INSULIN GLARGINE 100 UNIT/ML SUBCUT SCH ×2 (10:25→21:30)
[2020-06-17] MEDS: FAT EMULSION 20% 250 ML IV SCH (10:27)
[2020-06-17] MEDS: POTASSIUM PHOSPHATE IV SCH (17:41)
[2020-06-17] MEDS: ELECTROLYTE IV SCH (17:41)
[2020-06-17] MEDS: INSULIN REGULAR IV SCH (17:41)
[2020-06-17] MEDS: [UNRECOGNIZED DRUG - OTHER] IV SCH (17:41)
[2020-06-17] MEDS: SODIUM ACETATE IV SCH (21:10)
[2020-06-17] MEDS: DEXTROSE 5% IV SCH (21:10)
[2020-06-17] MEDS: FUROSEMIDE 40 MG/4 ML VIAL IV SCH (21:10)
[2020-06-17] MEDS: ATORVASTATIN 40 MG TABLET PO SCH (21:29)
[2020-06-17] MEDS: ONDANSETRON 4 MG/2 ML VIAL IV PRN (21:51)
[2020-06-18] MEDS: INSULIN LISPRO 100 UNIT/ML SUBCUT SCH ×4 (00:35→17:31)
[2020-06-18] MEDS: ALBUMIN 25% 12.5 GM in PREMIX 1 EACH IV SCH ×3 (04:25→17:31)
[2020-06-18] MEDS: METOCLOPRAMIDE 10 MG/2 ML VIAL IV SCH ×4 (04:35→23:21)
[2020-06-18 05:13] LABS: ABG Base Excess 2.3 MMOL/L (-2.5-2.5); ABG HCO3 24.4 MMOL/L (20-26); ABG Oxygen Saturation 96.5 % (95-100); ABG PCO2 29.4 MM HG (35-48); ABG PH 7.537 (7.35-7.45); ABG TCO2 25.3 MMOL/L (23-27); Allen Test Positive; Pt O2 Delivery Device Ventilator
[2020-06-18] MEDS: DEXTROSE 50% 25 GM/50 ML VIAL IV PRN ×2 (05:30→18:26)
[2020-06-18 05:40] LABS: Calcium 7.7 MG/DL (8.5-10.1); Osmolality,Calculated 295.5 MOS/KG (273-304); Potassium 5.1 MMOL/L (3.5-5.1)
[2020-06-18 05:45] LABS: Basophils # 0.1 10*3/uL (0.0-0.2); Basophils % 0.5 % (0.0-0.8); Eosinophils # 0.1 10*3/uL (0.0-0.87); Eosinophils % 0.7 % (0.00-10.9); Hemoglobin 9.3 GM/DL (12.0-16.0); Immature Granulocytes % 5.6 %; Immature Granulocytes Absolute 0.62 #; Lymphocytes # 0.7 10*3/uL (1.4-4.0); Lymphocytes % 5.9 % (21.3-54.2); Mean Corpuscular HGB Conc 38.8 GM/DL (32-36); Mean Corpuscular Volume 95.2 FL (87-102); Mean Platelet Volume 13.4 FL (9.6-12.0); Monocytes % 6.8 % (1.7-12.7); Neutrophils % 80.5 % (38.7-73.9); Platelet Count 84 T/CUMM (130-400); Red Blood Count 2.52 MC/CUMM (3.8-5.5); Red Cell Distribution Width 19.7 % (9.3-17.3); White Blood Count 11.1 T/CUMM (4-12)
[2020-06-18 06:09] LABS: Band Neutrophils 9 % (0-10); Hypochromasia 1+; Lymphocytes 8 % (20-55); Microcytosis 1+; Ovalocytes Slight; Platelet Estimate Decreased; Segmented Neutrophils 81 % (50-85); Total Cells Counted 100
[2020-06-18] MEDS ORDERED: FUROSEMIDE 40 MG/4 ML VIAL IV SCH (09:00)
[2020-06-18] MEDS: LIPASE/PROTEASE/AMYLASE 4,200 UNITS CAPSULE PO SCH ×3 (10:12→17:27)
[2020-06-18] MEDS: LACTOBACILLUS ACIDOPHILUS/BULGARICUS CAPLET PO SCH (10:12)
[2020-06-18] MEDS: carvediloL 6.25 MG TABLET PO SCH ×2 (10:13→20:58)
[2020-06-18] MEDS: MENTHOL/ZINC OXIDE OINT 71 GM JAR TOP SCH ×2 (10:13→20:58)
[2020-06-18] MEDS: PANTOPRAZOLE 40 MG VIAL IV SCH ×2 (10:14→20:58)
[2020-06-18] MEDS: ESCITALOPRAM 10 MG TABLET PO SCH (10:14)
[2020-06-18] MEDS: LOPERAMIDE 2 MG CAPSULE PO SCH ×4 (10:14→20:58)
[2020-06-18] MEDS: cefTRIAXone 1,000 MG in SYRINGE 1 EACH IV SCH (10:18)
[2020-06-18] MEDS ORDERED: DEXTROSE 10% 1,000 ML IV PRN (17:00)
[2020-06-18] MEDS ORDERED: MULTIVITAMIN IV SCH (17:00)
[2020-06-18] MEDS ORDERED: [UNRECOGNIZED DRUG - OTHER] IV SCH (17:00)
[2020-06-18] MEDS ORDERED: DEXTROSE IV SCH (17:00)
[2020-06-18] MEDS ORDERED: ELECTROLYTE IV SCH (17:00)
[2020-06-18] MEDS: ATORVASTATIN 40 MG TABLET PO SCH (20:58)
[2020-06-19] MEDS: INSULIN LISPRO 100 UNIT/ML SUBCUT SCH ×4 (00:12→18:23)
[2020-06-19 04:28] LABS: ABG HCO3 24.4 MMOL/L (20-26); ABG PCO2 31.6 MM HG (35-48); ABG PH 7.471 (7.35-7.45); ABG TCO2 21.1 MMOL/L (23-27)
[2020-06-19] MEDS: METOCLOPRAMIDE 10 MG/2 ML VIAL IV SCH ×4 (04:44→21:53)
[2020-06-19 05:01] LABS: Basophils # 0.1 10*3/uL (0.0-0.2); Basophils % 0.7 % (0.0-0.8); Eosinophils # 0.1 10*3/uL (0.0-0.87); Eosinophils % 0.8 % (0.00-10.9); Hemoglobin 9.1 GM/DL (12.0-16.0); Immature Granulocytes % 6.8 %; Immature Granulocytes Absolute 0.73 #; Lymphocytes # 0.5 10*3/uL (1.4-4.0); Lymphocytes % 4.9 % (21.3-54.2); Mean Corpuscular HGB Conc 36.4 GM/DL (32-36); Mean Corpuscular Volume 92.9 FL (87-102); Mean Platelet Volume 13.9 FL (9.6-12.0); Monocytes % 5.8 % (1.7-12.7); Red Blood Count 2.69 MC/CUMM (3.8-5.5); White Blood Count 10.8 T/CUMM (4-12)
[2020-06-19 05:10] LABS: Platelet Count 70 T/CUMM (130-400)
[2020-06-19 05:36] LABS: Calcium 7.3 MG/DL (8.5-10.1); Osmolality,Calculated 298.8 MOS/KG (273-304); Potassium 5.1 MMOL/L (3.5-5.1)
[2020-06-19 06:13] LABS: Anisocytosis 1+; Band Neutrophils 8 % (0-10); Eosinophils 2 % (0-10); Hypochromasia 2+; Lymphocytes 5 % (20-55); Macrocytosis 1+; Metamyelocytes 3 %; Platelet Estimate Decreased; Segmented Neutrophils 76 % (50-85); Target Cells 1+; Total Cells Counted 100
[2020-06-19] MEDS: ALBUMIN 25% 12.5 GM in PREMIX 1 EACH IV SCH ×2 (06:28→18:47)
[2020-06-19] MEDS: LACTOBACILLUS ACIDOPHILUS/BULGARICUS CAPLET PO SCH (09:25)
[2020-06-19] MEDS: MENTHOL/ZINC OXIDE OINT 71 GM JAR TOP SCH ×2 (09:25→21:52)
[2020-06-19] MEDS: ESCITALOPRAM 10 MG TABLET PO SCH (09:26)
[2020-06-19] MEDS: LOPERAMIDE 2 MG CAPSULE PO SCH ×4 (09:26→21:53)
[2020-06-19] MEDS: LIPASE/PROTEASE/AMYLASE 4,200 UNITS CAPSULE PO SCH ×3 (09:26→18:34)
[2020-06-19] MEDS: PANTOPRAZOLE 40 MG VIAL IV SCH ×2 (09:26→21:53)
[2020-06-19] MEDS: carvediloL 6.25 MG TABLET PO SCH ×2 (09:35→21:54)
[2020-06-19] MEDS: cefTRIAXone 1,000 MG in SYRINGE 1 EACH IV SCH (12:19)
[2020-06-19] MEDS: SKIN HEALING OINT (AQUAPHOR) 50 GM TUBE TOP SCH (15:00)
[2020-06-19] MEDS ORDERED: DEXTROSE IV SCH (17:00)
[2020-06-19] MEDS ORDERED: AMINO ACIDS 10% IV SCH (17:00)
[2020-06-19] MEDS ORDERED: ELECTROLYTE IV SCH (17:00)
[2020-06-19] MEDS: NOREPINEPHRINE 8 MG in SODIUM CHLORIDE 0.9% 242 ML IV PRN (18:51)
[2020-06-19] MEDS: SODIUM CHLORIDE 1 GM TABLET PER TUBE SCH (21:53)
[2020-06-19] MEDS: ATORVASTATIN 40 MG TABLET PO SCH (21:53)
[2020-06-20] MEDS: INSULIN LISPRO 100 UNIT/ML SUBCUT SCH ×4 (01:21→17:36)
[2020-06-20 02:48] LABS: ABG Base Excess -1.8 MMOL/L (-2.5-2.5); ABG HCO3 22.9 MMOL/L (20-26); ABG Oxygen Saturation 98.2 % (95-100); ABG PCO2 31.6 MM HG (35-48); ABG PH 7.444 (7.35-7.45); ABG TCO2 19.8 MMOL/L (23-27)
[2020-06-20] MEDS: METOCLOPRAMIDE 10 MG/2 ML VIAL IV SCH ×4 (05:15→21:33)
[2020-06-20 05:28] LABS: Bilirubin,Total 4.9 MG/DL (0.2-1.0); Calcium 7.3 MG/DL (8.5-10.1); Osmolality,Calculated 306.6 MOS/KG (273-304); Potassium 5.3 MMOL/L (3.5-5.1); Total Protein 5.4 G/DL (6.4-8.3)
[2020-06-20 06:25] LABS: Basophils # 0.1 10*3/uL (0.0-0.2); Basophils % 0.3 % (0.0-0.8); Eosinophils # 0.2 10*3/uL (0.0-0.87); Eosinophils % 0.9 % (0.00-10.9); Hematocrit 26.1 VOL% (35.7-47.0); Hemoglobin 9.2 GM/DL (12.0-16.0); Immature Granulocytes % 6.7 %; Immature Granulocytes Absolute 1.08 #; Lymphocytes # 0.7 10*3/uL (1.4-4.0); Lymphocytes % 4.5 % (21.3-54.2); Mean Corpuscular HGB Conc 35.2 GM/DL (32-36); Mean Corpuscular Volume 90.3 FL (87-102); Monocytes % 4.8 % (1.7-12.7); Neutrophils % 82.8 % (38.7-73.9); Red Blood Count 2.89 MC/CUMM (3.8-5.5); Red Cell Distribution Width 17.1 % (9.3-17.3); White Blood Count 16.1 T/CUMM (4-12)
[2020-06-20 06:26] LABS: Platelet Count 86 T/CUMM (130-400)
[2020-06-20 06:46] LABS: Band Neutrophils 3 % (0-10); Eosinophils 1 % (0-10); Hypochromasia Slight; Lymphocytes 7 % (20-55); Platelet Estimate Decreased; Segmented Neutrophils 87 % (50-85); Total Cells Counted 100
[2020-06-20] MEDS: ALBUMIN 25% 12.5 GM in PREMIX 1 EACH IV SCH ×2 (06:51→18:09)
[2020-06-20] MEDS: LACTOBACILLUS ACIDOPHILUS/BULGARICUS CAPLET PO SCH (09:24)
[2020-06-20] MEDS: SKIN HEALING OINT (AQUAPHOR) 50 GM TUBE TOP SCH (09:24)
[2020-06-20] MEDS: LOPERAMIDE 2 MG CAPSULE PO SCH ×4 (09:24→21:26)
[2020-06-20] MEDS: SODIUM CHLORIDE 1 GM TABLET PER TUBE SCH ×2 (09:24→21:26)
[2020-06-20] MEDS: PANTOPRAZOLE 40 MG VIAL IV SCH ×2 (09:24→21:27)
[2020-06-20] MEDS: ESCITALOPRAM 10 MG TABLET PO SCH (09:24)
[2020-06-20] MEDS: MENTHOL/ZINC OXIDE OINT 71 GM JAR TOP SCH ×2 (09:25→21:27)
[2020-06-20] MEDS: carvediloL 6.25 MG TABLET PO SCH ×3 (09:39→21:27)
[2020-06-20] MEDS: LIPASE/PROTEASE/AMYLASE 4,200 UNITS CAPSULE PO SCH ×3 (09:42→16:45)
[2020-06-20] MEDS: cefTRIAXone 1,000 MG in SYRINGE 1 EACH IV SCH (10:12)
[2020-06-20] MEDS: SODIUM CHLORIDE 0.9% 1,000 ML IV SCH ×2 (10:53→21:35)
[2020-06-20] MEDS: HYDROmorphone 2 MG/1 ML VIAL IV PRN (15:30)
[2020-06-20] MEDS: CALCIUM GLUCONATE IV SCH (16:45)
[2020-06-20] MEDS: MAGNESIUM SULF IV SCH (16:45)
[2020-06-20] MEDS: [UNRECOGNIZED DRUG - OTHER] IV SCH (16:45)
[2020-06-20] MEDS: ATORVASTATIN 40 MG TABLET PO SCH (21:27)
[2020-06-21] MEDS: INSULIN LISPRO 100 UNIT/ML SUBCUT SCH ×4 (00:24→17:45)
[2020-06-21] MEDS: SODIUM HYPOCHLORITE 0.25% IRRIG 473 ML BOTTLE TOP PRN (01:53)
[2020-06-21 04:12] LABS: Basophils # 0.1 10*3/uL (0.0-0.2); Basophils % 0.3 % (0.0-0.8); Eosinophils # 0.2 10*3/uL (0.0-0.87); Hematocrit 24.5 VOL% (35.7-47.0); Hemoglobin 8.7 GM/DL (12.0-16.0); Immature Granulocytes Absolute 1.51 #; Lymphocytes # 0.7 10*3/uL (1.4-4.0); Lymphocytes % 3.6 % (21.3-54.2); Mean Corpuscular HGB Conc 35.5 GM/DL (32-36); Mean Corpuscular Volume 94.2 FL (87-102); Mean Platelet Volume 13.6 FL (9.6-12.0); Neutrophils % 83.1 % (38.7-73.9); Red Cell Distribution Width 18.6 % (9.3-17.3); White Blood Count 18.9 T/CUMM (4-12)
[2020-06-21 04:15] LABS: Platelet Count 77 T/CUMM (130-400)
[2020-06-21 04:31] LABS: Band Neutrophils 5 % (0-10); Eosinophils 1 % (0-10); Hypochromasia 1+; Lymphocytes 5 % (20-55); Microcytosis 1+; Platelet Estimate Decreased; Segmented Neutrophils 87 % (50-85); Total Cells Counted 100
[2020-06-21 04:48] LABS: Bilirubin,Total 4.4 MG/DL (0.2-1.0); Calcium 6.9 MG/DL (8.5-10.1); Osmolality,Calculated 308.8 MOS/KG (273-304); Potassium 4.9 MMOL/L (3.5-5.1); Total Protein 5.4 G/DL (6.4-8.3)
[2020-06-21 05:06] LABS: ABG HCO3 20.3 MMOL/L (20-26); ABG Oxygen Saturation 97.9 % (95-100); ABG PCO2 32.8 MM HG (35-48); ABG TCO2 17.8 MMOL/L (23-27); Allen Test Positive; Pt O2 Delivery Device Ventilator
[2020-06-21] MEDS: METOCLOPRAMIDE 10 MG/2 ML VIAL IV SCH ×4 (05:12→21:36)
[2020-06-21] MEDS: ALBUMIN 25% 12.5 GM in PREMIX 1 EACH IV SCH ×2 (06:25→17:41)
[2020-06-21] MEDS: SODIUM CHLORIDE 0.9% 1,000 ML IV SCH ×2 (07:15→16:02)
[2020-06-21] MEDS: LOPERAMIDE 2 MG CAPSULE PO SCH ×4 (08:20→21:30)
[2020-06-21] MEDS: ESCITALOPRAM 10 MG TABLET PO SCH (08:21)
[2020-06-21] MEDS: SODIUM CHLORIDE 1 GM TABLET PER TUBE SCH ×4 (08:21→21:30)
[2020-06-21] MEDS: LACTOBACILLUS ACIDOPHILUS/BULGARICUS CAPLET PO SCH (08:21)
[2020-06-21] MEDS: LIPASE/PROTEASE/AMYLASE 4,200 UNITS CAPSULE PO SCH ×3 (08:22→16:03)
[2020-06-21] MEDS: PANTOPRAZOLE 40 MG VIAL IV SCH ×2 (08:22→21:34)
[2020-06-21] MEDS: MENTHOL/ZINC OXIDE OINT 71 GM JAR TOP SCH ×2 (08:23→21:29)
[2020-06-21] MEDS: SKIN HEALING OINT (AQUAPHOR) 50 GM TUBE TOP SCH (08:23)
[2020-06-21] MEDS: carvediloL 6.25 MG TABLET PO SCH ×2 (08:23→21:29)
[2020-06-21] MEDS: NOREPINEPHRINE 8 MG in SODIUM CHLORIDE 0.9% 242 ML IV PRN (10:37)
[2020-06-21] MEDS: MICAFUNGIN 100 MG in SODIUM CHLORIDE 0.9% 100 ML IV SCH (15:20)
[2020-06-21] MEDS ORDERED: VANCOMYCIN INJ 1,500 MG in SODIUM CHLORIDE 0.9% 500 ML IV SCH (16:00)
[2020-06-21] MEDS ORDERED: MAGNESIUM SULF IV SCH (17:00)
[2020-06-21] MEDS ORDERED: CALCIUM GLUCONATE IV SCH (17:00)
[2020-06-21] MEDS ORDERED: [UNRECOGNIZED DRUG - OTHER] IV SCH (17:00)
[2020-06-21] MEDS ORDERED: HYDROmorphone 2 MG/1 ML VIAL IV PRN (17:10)
[2020-06-21] MEDS ORDERED: LORazepam 2 MG/1 ML VIAL IV PRN (17:48)
[2020-06-21] MEDS: ATORVASTATIN 40 MG TABLET PO SCH (21:30)
[2020-06-22] MEDS: INSULIN LISPRO 100 UNIT/ML SUBCUT SCH ×4 (00:34→18:36)
[2020-06-22] MEDS: SODIUM HYPOCHLORITE 0.25% IRRIG 473 ML BOTTLE TOP PRN (01:37)
[2020-06-22] MEDS: SODIUM CHLORIDE 0.9% 1,000 ML IV SCH ×3 (02:30→22:54)
[2020-06-22 03:19] LABS: Basophils # 0.1 10*3/uL (0.0-0.2); Basophils % 0.5 % (0.0-0.8); Eosinophils # 0.3 10*3/uL (0.0-0.87); Hematocrit 25.7 VOL% (35.7-47.0); Hemoglobin 8.7 GM/DL (12.0-16.0); Immature Granulocytes % 10.6 %; Immature Granulocytes Absolute 2.65 #; Lymphocytes # 0.7 10*3/uL (1.4-4.0); Lymphocytes % 2.7 % (21.3-54.2); Mean Corpuscular HGB Conc 33.9 GM/DL (32-36); Mean Corpuscular Volume 94.1 FL (87-102); Mean Platelet Volume 13.6 FL (9.6-12.0); Monocytes % 2.7 % (1.7-12.7); Neutrophils % 82.5 % (38.7-73.9); Red Blood Count 2.73 MC/CUMM (3.8-5.5); Red Cell Distribution Width 17.6 % (9.3-17.3); White Blood Count 25.1 T/CUMM (4-12)
[2020-06-22 03:22] LABS: Platelet Count 72 T/CUMM (130-400)
[2020-06-22 03:36] LABS: Albumin 2.1 G/DL (3.4-5.0); Bilirubin,Total 4.8 MG/DL (0.2-1.0); Calcium 6.5 MG/DL (8.5-10.1); Osmolality,Calculated 315.4 MOS/KG (273-304); Potassium 4.4 MMOL/L (3.5-5.1); Total Protein 5.3 G/DL (6.4-8.3)
[2020-06-22 03:59] LABS: Band Neutrophils 10 % (0-10); Eosinophils 1 % (0-10); Hypochromasia 2+; Lymphocytes 1 % (20-55); Metamyelocytes 1 %; Myelocytes 1 %; Segmented Neutrophils 82 % (50-85); Total Cells Counted 100
[2020-06-22 04:00] LABS: Microcytosis 1+; Platelet Estimate Decreased; Target Cells Slight
[2020-06-22 04:26] LABS: ABG Base Excess -8.2 MMOL/L (-2.5-2.5); ABG HCO3 17.8 MMOL/L (20-26); ABG PCO2 32.5 MM HG (35-48); ABG PH 7.326 (7.35-7.45); ABG PO2 90.7 MM HG (80-95); ABG TCO2 15.8 MMOL/L (23-27); Allen Test Positive; Pt O2 Delivery Device Ventilator
[2020-06-22] MEDS: SODIUM CHLORIDE 1 GM TABLET PER TUBE SCH ×4 (04:29→21:40)
[2020-06-22] MEDS: METOCLOPRAMIDE 10 MG/2 ML VIAL IV SCH ×4 (04:40→21:40)
[2020-06-22] MEDS: NOREPINEPHRINE 8 MG in SODIUM CHLORIDE 0.9% 242 ML IV PRN ×3 (06:09→22:53)
[2020-06-22] MEDS: ALBUMIN 25% 12.5 GM in PREMIX 1 EACH IV SCH ×2 (06:23→20:16)
[2020-06-22] MEDS: carvediloL 6.25 MG TABLET PO SCH ×2 (09:02→20:16)
[2020-06-22] MEDS: LIPASE/PROTEASE/AMYLASE 4,200 UNITS CAPSULE PO SCH ×3 (09:12→16:56)
[2020-06-22] MEDS: SKIN HEALING OINT (AQUAPHOR) 50 GM TUBE TOP SCH (09:12)
[2020-06-22] MEDS: ESCITALOPRAM 10 MG TABLET PO SCH (09:12)
[2020-06-22] MEDS: MENTHOL/ZINC OXIDE OINT 71 GM JAR TOP SCH ×2 (09:12→20:22)
[2020-06-22] MEDS: LACTOBACILLUS ACIDOPHILUS/BULGARICUS CAPLET PO SCH (09:12)
[2020-06-22] MEDS: LOPERAMIDE 2 MG CAPSULE PO SCH ×4 (09:13→20:22)
[2020-06-22] MEDS: PANTOPRAZOLE 40 MG VIAL IV SCH ×2 (09:45→20:22)
[2020-06-22] MEDS: MICAFUNGIN 100 MG in SODIUM CHLORIDE 0.9% 100 ML IV SCH (14:53)
[2020-06-22] MEDS: MAGNESIUM SULF IV SCH (17:07)
[2020-06-22] MEDS: CALCIUM GLUCONATE IV SCH (17:07)
[2020-06-22] MEDS: [UNRECOGNIZED DRUG - OTHER] IV SCH (17:07)
[2020-06-22] MEDS: ATORVASTATIN 40 MG TABLET PO SCH (20:22)
[2020-06-23] MEDS: INSULIN LISPRO 100 UNIT/ML SUBCUT SCH ×3 (00:18→14:57)
[2020-06-23] MEDS: SODIUM HYPOCHLORITE 0.25% IRRIG 473 ML BOTTLE TOP PRN (02:41)
[2020-06-23 02:47] LABS: ABG Base Excess -14.2 MMOL/L (-2.5-2.5); ABG HCO3 13.3 MMOL/L (20-26); ABG Oxygen Saturation 91.6 % (95-100); ABG PCO2 43.8 MM HG (35-48); ABG PO2 77.2 MM HG (80-95); Allen Test Positive; Pt O2 Delivery Device Ventilator
[2020-06-23 03:06] LABS: ABG PH 7.127 (7.35-7.45)
[2020-06-23] MEDS ORDERED: SODIUM BICARBONATE 50 MEQ/50 ML VIAL IV ONE (03:33)
[2020-06-23 03:42] VITALS: BP 110/46
[2020-06-23] MEDS: SODIUM CHLORIDE 1 GM TABLET PER TUBE SCH ×3 (03:52→16:10)
[2020-06-23] MEDS: METOCLOPRAMIDE 10 MG/2 ML VIAL IV SCH ×2 (03:52→10:22)
[2020-06-23 04:12] LABS: Basophils % 0.1 % (0.0-0.8); Eosinophils # 0.2 10*3/uL (0.0-0.87); Eosinophils % 0.6 % (0.00-10.9); Hematocrit 26.6 VOL% (35.7-47.0); Hemoglobin 8.5 GM/DL (12.0-16.0); Immature Granulocytes % 13.6 %; Immature Granulocytes Absolute 4.85 #; Lymphocytes # 1.1 10*3/uL (1.4-4.0); Lymphocytes % 3.1 % (21.3-54.2); Mean Corpuscular Volume 99.6 FL (87-102); Mean Platelet Volume 13.8 FL (9.6-12.0); Monocytes % 2.9 % (1.7-12.7); NRBC # 0.03 10*3/uL; Neutrophils % 79.7 % (38.7-73.9); Red Blood Count 2.67 MC/CUMM (3.8-5.5); Red Cell Distribution Width 18.5 % (9.3-17.3); White Blood Count 35.6 T/CUMM (4-12)
[2020-06-23 04:14] LABS: Platelet Count 81 T/CUMM (130-400)
[2020-06-23 04:27] LABS: Calcium 6.4 MG/DL (8.5-10.1); Osmolality,Calculated 316.2 MOS/KG (273-304); Potassium 4.3 MMOL/L (3.5-5.1); Total Protein 5.3 G/DL (6.4-8.3)
[2020-06-23 04:54] LABS: Anisocytosis 1+; Band Neutrophils 4 % (0-10); Eosinophils 1 % (0-10); Hypochromasia 2+; Lymphocytes 3 % (20-55); Macrocytosis 1+; Metamyelocytes 6 %; Nucleated Red Blood Cells 1 (0-5); Platelet Estimate Decreased; Segmented Neutrophils 80 % (50-85); Total Cells Counted 100
[2020-06-23 05:38] LABS: ABG Base Excess -11.7 MMOL/L (-2.5-2.5); ABG HCO3 15.1 MMOL/L (20-26); ABG Oxygen Saturation 93.1 % (95-100); ABG PCO2 47.4 MM HG (35-48); ABG PO2 76.4 MM HG (80-95); ABG TCO2 16.1 MMOL/L (23-27); Allen Test Positive; Pt O2 Delivery Device Ventilator
[2020-06-23 05:41] LABS: ABG PH 7.155 (7.35-7.45)
[2020-06-23] MEDS: ALBUMIN 25% 12.5 GM in PREMIX 1 EACH IV SCH (06:08)
[2020-06-23 07:27] LABS: Pt O2 Delivery Device Ventilator
[2020-06-23 07:29] LABS: ABG Base Excess -12.1 MMOL/L (-2.5-2.5); ABG HCO3 14.8 MMOL/L (20-26); ABG Oxygen Saturation 94.7 % (95-100); ABG PCO2 39.7 MM HG (35-48); ABG PO2 81.4 MM HG (80-95); ABG TCO2 14.6 MMOL/L (23-27)
[2020-06-23 07:32] LABS: ABG PH 7.195 (7.35-7.45)
[2020-06-23] MEDS ORDERED: SODIUM BICARB INJ 100 MEQ in SODIUM CHLORIDE 0.45% 1,000 ML IV SCH (09:00)
[2020-06-23] MEDS: SODIUM CHLORIDE 0.9% 1,000 ML IV SCH (09:00)
[2020-06-23] MEDS: carvediloL 6.25 MG TABLET PO SCH (10:05)
[2020-06-23] MEDS: LACTOBACILLUS ACIDOPHILUS/BULGARICUS CAPLET PO SCH (10:18)
[2020-06-23] MEDS: LIPASE/PROTEASE/AMYLASE 4,200 UNITS CAPSULE PO SCH ×2 (10:18→14:57)
[2020-06-23] MEDS: ESCITALOPRAM 10 MG TABLET PO SCH (10:19)
[2020-06-23] MEDS: MENTHOL/ZINC OXIDE OINT 71 GM JAR TOP SCH (10:19)
[2020-06-23] MEDS: SKIN HEALING OINT (AQUAPHOR) 50 GM TUBE TOP SCH (10:19)
[2020-06-23] MEDS: LOPERAMIDE 2 MG CAPSULE PO SCH ×2 (10:19→14:12)
[2020-06-23] MEDS: PANTOPRAZOLE 40 MG VIAL IV SCH (10:20)
[2020-06-23] MEDS: NOREPINEPHRINE 8 MG in SODIUM CHLORIDE 0.9% 242 ML IV PRN (10:47)
[2020-06-23] MEDS ORDERED: HYDROmorphone 2 MG/1 ML VIAL IV PRN (14:50)
[2020-06-23] MEDS ORDERED: LORazepam 2 MG/1 ML VIAL IV PRN (14:50)
== END 2020-06-23 15:48 | disposition expired | DRG 3 ==
LOC: N.ED 05:29 → N.EDINP 08:11 → SUATTDRO 08:11 → N.ICU 11:19
PROVIDERS: ADMIT Internal Medicine; ATTEND Internal Medicine